=== PATIENT | female | born 1935 | race Caucasian/White ===

== ENCOUNTER 2018-07-09 05:53 | Emergency (ER) | payer OTHER ==
[2018-07-09] MEDS ORDERED: NA CHLORIDE 0.9% 1,000 ML ONE (07:12)
[2018-07-09] MEDS ORDERED: PANTOPRAZOLE 40 MG INJ ONE (07:12)
[2018-07-09 07:14] LABS: Absolute Lymphocytes (CBC) 1.3 K/uL (0.7-4.9); Absolute Monocytes 0.4 K/uL (0.1-1.3); Absolute Neutrophil 3.1 K/uL (1.8-8.0); Basophils % 0.7 % (0-1.3); Eosinophils % 2.4 % (0-4.4); Hematocrit 35.6 % (36.0-45.0); Lymphocytes % 26.4 % (15.3-44.8); MCH 26.8 pg (27.0-35.0); MCV 81.8 fL (80-100); MPV 8.4 fL (7.6-11.3); Monocytes % 8.2 % (3.3-12.3); RBC Red Blood Cell Count 4.35 M/uL (3.86-4.86)
[2018-07-09 07:15] LABS: Protime INR 1.08
[2018-07-09 07:49] LABS: ALT/SGPT 16 U/L (12-78); AST/SGOT 18 U/L (15-37); Albumin 3.3 g/dL (3.4-5.0); Alkaline Phosphatase 106 U/L (45-117); BUN Blood Urea Nitrogen 13 mg/dL (7-18); Bicarbonate 26 mmol/L (21-32); Bilirubin Direct 0.1 mg/dL (0-0.2); Bilirubin Total 0.3 mg/dL (0.2-1.0); Ferritin 33.6 ng/mL (8-388); Folic Acid, (Folate) 5.9 ng/mL (3.1-17.5); Glucose Level 92 mg/dL (74-106); Lipase 87 U/L (73-393); Magnesium 2.1 mg/dL (1.8-2.4); NT PRO-BNP 386 pg/mL (<450); Potassium 3.8 mmol/L (3.5-5.1); Protein, Total 7.7 g/dL (6.4-8.2); Sodium Level 140 mmol/L (136-145); Thyroid Stimulating Hormone 0.079 uIU/mL (0.360-3.740); Transferrin 264 mg/dL (200-360); Troponin (Emerg Dept Use Only) < 0.02 ng/mL (0.0-0.045)
--- NOTE | 2018-07-09 08:21 | RAD REPORT ---
EXAM DESCRIPTION: Lilly Single View07/09/2018 7:11 am CLINICAL HISTORY: Cough COMPARISON: 2016 FINDINGS: The lungs appear clear of acute infiltrate. The heart is normal size. A small hiatal brittni ia IMPRESSION: No acute abnormalities displayed
--- NOTE | 2018-07-09 09:13 | RAD REPORT ---
EXAM DESCRIPTION: USCarotid Artery Wnjqcujsp50/21/2018 7:37 am CLINICAL HISTORY: Syncope COMPARISON: None FINDINGS: The velocity of the right internal carotid artery equals 115 cm/sec. The right ICA/CCA rat io 1.1 The velocity of the left internal carotid artery equals 87 cm/sec. The left ICA/CCA ratio 0.8 Mild plaque is present within the carotid arteries. The vertebral arteries demonstrate antegrade flow IMPRESSION: Mild plaque within the carotid arteries without evidence of a hemodynamically significan t stenosis NASCET criteria used. Mild 0-49% stenosis Moderate 50-69% stenosis Severe 70-99% stenosis
--- NOTE | 2018-07-09 10:12 | EDPHYS ---
Physician Documentation [facility] Name: Agustina Laird Age: 82 yrs Sex: Female : 1935 Arrival Date: 07/09/2018 Time: 05:58 Bed 5 Private MD: Carlyle Walter T ED Physician Georgi Carrasco HPI: 07/09 06:50 This 82 yrs old Female presents to ER via Wheelchair with complaints of terry Weakness. 06:50 The patient presents to the emergency department with weakness of the entire body, terry generalized weakness. Onset: The symptoms/episode began/occurred 2 week(s) ago. Historical: - Allergies: 06:25 Dilaudid (Hives); fc 06:25 Lovastatin (Unknown reaction); fc - Home Meds: 06:25 citalopram 10 mg tab 1 tab once daily [Active]; pantoprazole 40 mg oral TbEC 1 tab once fc daily [Active]; allopurinol 100 mg Oral tab 1 tab 2 times per day [Active]; Lasix 40 mg Oral tab 1 tab once daily [Active]; diazepam 5 mg Oral tab 1 tab daily [Active]; levothyroxine 112 mcg tab 1 tab once daily [Active]; gabapentin 300 mg oral cap 1 cap daily [Active]; - PMHx: 06:25 Arthritis; CAD; Hypertension; Hypothyroidism; GERD; Depression; Gout; fc - PSHx: 06:25 Heart stents; fc - Immunization history:: Last tetanus immunization: unknown, Flu vaccine is up to date. - Social history:: Smoking status: Patient/guardian denies using tobacco, Patient/guardian denies using alcohol. - Ebola Screening: : Patient negative for fever greater than or equal to 101.5 degrees Fahrenheit, and additional compatible Ebola Virus Disease symptoms Patient denies exposure to infectious person Patient denies travel to an Ebola-affected area in the 21 days before illness onset. ROS: 06:52 Constitutional: Negative for fever, chills, and weight loss, Eyes: Negative for injury, terry pain, redness, and discharge, ENT: Negative for injury, pain, and discharge, Neck: Negative for injury, pain, and swelling, Cardiovascular: Negative for chest pain, palpitations, and edema, Respiratory: Negative for shortness of breath, cough, wheezing, and pleuritic chest pain, Abdomen/GI: Negative for abdominal pain, nausea, vomiting, diarrhea, and constipation, Back: Negative for injury and pain, : Negative for injury, bleeding, discharge, and swelling, MS/Extremity: Negative for injury and deformity, Psych: Negative for depression, anxiety, suicide ideation, homicidal ideation, and hallucinations, Allergy/Immunology: Negative for hives, rash, and allergies, Endocrine: Negative for neck swelling, polydipsia, polyuria, polyphagia, and marked weight changes. 06:52 Skin: Positive for pallor. 06:52 Neuro: Positive for dizziness, weakness. Exam: 06:52 Constitutional: This is a well developed, well nourished patient who is awake, alert, terry and in no acute distress. Head/Face: Normocephalic, atraumatic. ENT: Nares patent. No nasal discharge, no septal abnormalities noted. Tympanic membranes are normal and external auditory canals are clear. Oropharynx with no redness, swelling, or masses, exudates, or evidence of obstruction, uvula midline. Mucous membranes moist. Neck: Trachea midline, no thyromegaly or masses palpated, and no cervical lymphadenopathy. Supple, full range of motion without nuchal rigidity, or vertebral point tenderness. No Meningismus. Chest/axilla: Normal chest wall appearance and motion. Nontender with no deformity. No lesions are appreciated. Respiratory: Lungs have equal breath sounds bilaterally, clear to auscultation and percussion. No rales, rhonchi or wheezes noted. No increased work of breathing, no retractions or nasal flaring. Abdomen/GI: Soft, non-tender, with normal bowel sounds. No distension or tympany. No guarding or rebound. No evidence of tenderness throughout. Back: No spinal tenderness. No costovertebral tenderness. Full range of motion. Female : Normal external genitalia. MS/ Extremity: Pulses equal, no cyanosis. Neurovascular intact. Full, normal range of motion. Neuro: Awake and alert, GCS 15, oriented to person, place, time, and situation. Cranial nerves II-XII grossly intact. Motor strength 5/5 in all extremities. Sensory grossly intact. Cerebellar exam normal. Normal gait. Psych: Awake, alert, with orientation to person, place and time. Behavior, mood, and affect are within normal limits. 06:52 Eyes: Pupils: no acute changes, equal, round, and reactive to light and accomodation, Extraocular movements: intact throughout, Conjunctiva: normal, no acute changes, pale, Corneas: are normal, no acute changes, Sclera: no appreciated abnormality, no acute changes, Anterior chamber: normal, no acute changes, Lids and lashes: appear normal, no acute changes, Visual contreras: are intact, no acute changes. Vital Signs: 06:05 BP 153 / 76; Pulse 55; Resp 16; Temp 97.8(O); Pulse Ox 96% on R/A; Weight 78.02 kg (R); fc Height 5 ft. 5 in. (165.10 cm) (R); Pain 0/10; 07:31 BP 167 / 55; Pulse 49; Resp 14; Pulse Ox 96% on R/A; Pain 0/10; ss 09:16 BP 189 / 62; Pulse 47; Resp 17; Pulse Ox 98% on R/A; hb 10:10 BP 193 / 56 Supine; Pulse 47; gm 10:10 BP 185 / 67 Sitting; Pulse 48; gm 10:10 BP 176 / 84 Standing; Pulse 55; gm 06:05 Body Mass Index 28.62 (78.02 kg, 165.10 cm) fc MDM: 06:27 Patient medically screened. [facility] 06:54 Data reviewed: vital signs, nurses notes, lab test result(s), EKG, radiologic studies. [facility] 07/09 06:43 Order name: Basic Metabolic Panel; Complete Time: 07:55 [facility] 07/09 06:43 Order name: CBC with Diff; Complete Time: 07:48 [facility] 07/09 06:43 Order name: LFT's; Complete Time: 07:55 [facility] 07/09 06:43 Order name: Magnesium; Complete Time: 07:55 [facility] 07/09 06:43 Order name: NT PRO-BNP; Complete Time: 07:55 [facility] 07/09 06:43 Order name: PT-INR; Complete Time: 07:48 [facility] 07/09 06:43 Order name: Troponin (emerg Dept Use Only); Complete Time: 07:55 [facility] 07/09 06:43 Order name: Lipase; Complete Time: 07:55 [facility] 07/09 06:43 Order name: Type And Screen 07/09 06:43 Order name: Urine Culture [facility] 07/09 06:43 Order name: Retic Count; Complete Time: 07:48 [facility] 07/09 06:43 Order name: B12; Complete Time: 07:55 [facility] 07/09 06:43 Order name: Folic Acid,Serum (folate); Complete Time: 07:55 [facility] 07/09 06:43 Order name: TIBC; Complete Time: 07:55 [facility] 07/09 06:43 Order name: XRAY Chest (1 view); Complete Time: 08:51 [facility] 07/09 06:43 Order name: EKG; Complete Time: 06:46 [facility] 07/09 06:43 Order name: Cardiac monitoring; Complete Time: 06:53 [facility] 07/09 06:43 Order name: EKG - Nurse/Tech; Complete Time: 06:53 [facility] 07/09 06:43 Order name: IV Saline Lock; Complete Time: 06:53 [facility] 07/09 06:43 Order name: Labs collected and sent; Complete Time: 06:53 [facility] 07/09 06:43 Order name: Ferritin; Complete Time: 07:55 [facility] 07/09 06:43 Order name: TSH; Complete Time: 07:55 [facility] 07/09 06:50 Order name: Echo w/ Doppler [facility] 07/09 07:02 Order name: Occult Blood--Ancillary 07/09 07:05 Order name: US Carotid Artery Bilateral; Complete Time: 09:29 [facility] 07/09 07:09 Order name: Bb Add On 07/09 10:19 Order name: Urine Dipstick--Ancillary (enter results) 07/09 06:43 Order name: O2 Per Protocol; Complete Time: 06:52 [facility] 07/09 06:43 Order name: O2 Sat Monitoring; Complete Time: 06:52 [facility] 07/09 06:50 Order name: IV Saline Lock - Large Bore; Complete Time: 06:52 [facility] 07/09 09:32 Order name: Orthostatics; Complete Time: 10:11 [facility] Administered Medications: 07:12 Drug: NS 0.9% 1000 ml Route: IV; Rate: 125 ml/hr; Site: right forearm; la1 07:12 Drug: ProTONIX 40 mg Route: IVP; Site: right forearm; la1 Point of Care Testing: Guaiac: 07:01 Stool Guaiac: Negative; Stool Hemoccult Control: Pass; [facility] Disposition: 07/09/18 10:11 Discharged to Home. Impression: Nonrheumatic aortic (valve) stenosis, Bradycardia, unspecified, Anemia, unspecified, Malaise and fatigue. - Condition is Fair. - Discharge Instructions: Anemia, Nonspecific, Bradycardia, Adult, Weakness, Aortic Valve Stenosis, Weakness, [id number]. - Medication Reconciliation Form, Thank You Letter, Antibiotic Education, Prescription Opioid Use form. - Follow up: Carlyle Walter; When: 2 - 3 days; Reason: Recheck today's complaints, Continuance of care, Re-evaluation by your physician. Follow up: Zenon Diaz; When: 1 - 2 days; Reason: Recheck today's complaints, Continuance of care, Re-evaluation by your physician. - Problem is new. - Symptoms have improved. Signatures: Dispatcher [employer] [facility] Georgi Carrasco MD MD cha Chretien, Felicia, RN RN Onel Muñoz RN RN la1 Elizabeth Prabhakar RN RN hb Corrections: (The following items were deleted from the chart) 06:47 06:46 FERRITIN+C.LAB.BRZ ordered. [facility] 10:50 10:11 07/09/2018 10:11 Discharged to Home. Impression: Nonrheumatic aortic (valve) hb stenosis; Bradycardia, unspecified; Anemia, unspecified; Malaise and fatigue. Condition is Fair. Discharge Instructions: Anemia, Nonspecific, Bradycardia, Adult, Weakness, Aortic Valve Stenosis, Weakness, [id number]. Forms are Medication Reconciliation Form, Thank You Letter, Antibiotic Education, Prescription Opioid Use. Follow up: Carlyle Walter; When: 2 - 3 days; Reason: Recheck today's complaints, Continuance of care, Re-evaluation by your physician. Follow up: Zenon Diaz; When: 1 - 2 days; Reason: Recheck today's complaints, Continuance of care, Re-evaluation by your physician. Problem is new. Symptoms have improved. terry
--- NOTE | 2018-07-09 10:12 | ER ---
Nurse's Notes [facility] Name: Agustina Laird Age: 82 yrs Sex: Female : 1935 Arrival Date: 07/09/2018 Time: 05:58 Bed 5 Private MD: Carlyle Walter T Diagnosis: Nonrheumatic aortic (valve) stenosis;Bradycardia, unspecified;Anemia, unspecified;Malaise and fatigue Presentation: 07/09 06:05 Presenting complaint: Patient states: that she has been having weakness for approx 2 fc months. Is concerned that she may need blood, hx of anemia. States that she is just tired and has no energy. Denies any pain. Transition of care: patient was not received from another setting of care. No acute neurological deficit is noted. Pre-hospital glucose is not applicable to this patient. Onset of symptoms was April 2018. Risk Assessment: Do you want to hurt yourself or someone else? Patient reports no desire to harm self or others. Initial Sepsis Screen: Does the patient meet any 2 criteria? No. Patient's initial sepsis screen is negative. Does the patient have a suspected source of infection? No. Patient's initial sepsis screen is negative. Care prior to arrival: None. 06:05 Method Of Arrival: Wheelchair fc 06:05 Acuity: CAITY 3 fc Stroke Activation: Physician: Stroke Attending; Name: ; Notified At: ; Arrived At: Physician: Chief Stroke Resident; Name: ; Notified At: ; Arrived At: Physician: Stroke Resident; Name: ; Notified At: ; Arrived At: Physician: ED Attending; Name: ; Notified At: ; Arrived At: Physician: ED Resident; Name: ; Notified At: ; Arrived At: 06:05 Pt is having weakness all over x 2 months fc Historical: - Allergies: 06:25 Dilaudid (Hives); fc 06:25 Lovastatin (Unknown reaction); fc - Home Meds: 06:25 citalopram 10 mg tab 1 tab once daily [Active]; pantoprazole 40 mg oral TbEC 1 tab once fc daily [Active]; allopurinol 100 mg Oral tab 1 tab 2 times per day [Active]; Lasix 40 mg Oral tab 1 tab once daily [Active]; diazepam 5 mg Oral tab 1 tab daily [Active]; levothyroxine 112 mcg tab 1 tab once daily [Active]; gabapentin 300 mg oral cap 1 cap daily [Active]; - PMHx: 06:25 Arthritis; CAD; Hypertension; Hypothyroidism; GERD; Depression; Gout; fc - PSHx: 06:25 Heart stents; fc - Immunization history:: Last tetanus immunization: unknown, Flu vaccine is up to date. - Social history:: Smoking status: Patient/guardian denies using tobacco, Patient/guardian denies using alcohol. - Ebola Screening: : Patient negative for fever greater than or equal to 101.5 degrees Fahrenheit, and additional compatible Ebola Virus Disease symptoms Patient denies exposure to infectious person Patient denies travel to an Ebola-affected area in the 21 days before illness onset. Screenin:05 Abuse screen: Denies threats or abuse. Nutritional screening: No deficits noted. fc Tuberculosis screening: No symptoms or risk factors identified. Fall Risk None identified. Assessment: 06:29 General: Appears in no apparent distress. uncomfortable, Behavior is calm, cooperative, jd3 appropriate for age, Reports fatigue for blood count might be low. Pain: Denies pain. Neuro: Level of Consciousness is awake, alert, obeys commands, Oriented to person, place, time, situation, Appropriate for age Reports weakness. Cardiovascular: Heart tones S1 S2 present Capillary refill < 3 seconds Patient's skin is warm and dry. Respiratory: Airway is patent Respiratory effort is even, unlabored, Respiratory pattern is regular, symmetrical, Breath sounds are clear bilaterally. GI: Abdomen is round non-distended, Patient currently denies abdominal pain, diarrhea, nausea, vomiting. : No signs and/or symptoms were reported regarding the genitourinary system. EENT: No signs and/or symptoms were reported regarding the EENT system. Derm: Skin is intact, Skin is dry, Skin is normal, Skin temperature is warm. Musculoskeletal: Circulation, motion, and sensation intact. Range of motion: intact in all extremities. 07:15 Reassessment: Patient appears in no apparent distress at this time. Patient and/or hb family updated on plan of care and expected duration. Pain level reassessed. Patient is alert, oriented x 3, equal unlabored respirations, skin warm/dry/pink. 08:02 Reassessment: Patient appears in no apparent distress at this time. Patient and/or hb family updated on plan of care and expected duration. Pain level reassessed. Patient is alert, oriented x 3, equal unlabored respirations, skin warm/dry/pink. 08:09 Reassessment: Pt to echo via wheelchair. Family remains at bedside. hb 09:09 Reassessment: Pt returned from echo via wheelchair. Assisted back to bed, NAD. Denies hb pain/sob at this time. Bed locked in low position, call light within reach. Family remains at bedside. 10:00 Reassessment: Patient appears in no apparent distress at this time. No changes from hb previously documented assessment. Patient and/or family updated on plan of care and expected duration. Pain level reassessed. Patient is alert, oriented x 3, equal unlabored respirations, skin warm/dry/pink. Vital Signs: 06:05 BP 153 / 76; Pulse 55; Resp 16; Temp 97.8(O); Pulse Ox 96% on R/A; Weight 78.02 kg (R); fc Height 5 ft. 5 in. (165.10 cm) (R); Pain 0/10; 07:31 BP 167 / 55; Pulse 49; Resp 14; Pulse Ox 96% on R/A; Pain 0/10; ss 09:16 BP 189 / 62; Pulse 47; Resp 17; Pulse Ox 98% on R/A; hb 10:10 BP 193 / 56 Supine; Pulse 47; gm 10:10 BP 185 / 67 Sitting; Pulse 48; gm 10:10 BP 176 / 84 Standing; Pulse 55; gm 06:05 Body Mass Index 28.62 (78.02 kg, 165.10 cm) ED Course: 05:58 Patient arrived in ED. es 05:58 Carlyle Walter MD is Private Physician. es 06:05 Arm band placed on Patient placed in an exam room, on a stretcher. fc 06:05 Patient has correct armband on for positive identification. Placed in gown. Bed in low fc position. Call light in reach. Side rails up X 1. manager monitoring on. Pulse ox on. NIBP on. 06:05 No provider procedures requiring assistance completed. fc 06:20 Triage completed. fc 06:26 Georgi Carrasco MD is Attending Physician. [facility] 06:28 Jose Francisco Pride RN is Primary Nurse. jd3 06:30 Inserted saline lock: 22 gauge in right forearm, using aseptic technique. Blood jd3 collected. 07:07 X-ray completed. Portable x-ray completed in exam room. Patient tolerated procedure jb2 well. 07:08 XRAY Chest (1 view) In Process Unspecified. EDMS 07:36 Ultrasound completed. Patient tolerated well. aa4 07:37 US Carotid Artery Bilateral In Process Unspecified. EDMS 10:11 Carlyle Walter MD is Referral Physician. terry 10:11 Zenon Diaz MD is Referral Physician. terry 10:49 IV discontinued, intact, bleeding controlled, No redness/swelling at site. Pressure hb dressing applied. Administered Medications: 07:12 Drug: NS 0.9% 1000 ml Route: IV; Rate: 125 ml/hr; Site: right forearm; la1 07:12 Drug: ProTONIX 40 mg Route: IVP; Site: right forearm; la1 Point of Care Testing: Guaiac: 07:01 Stool Guaiac: Negative; Stool Hemoccult Control: Pass; terry Outcome: 10:11 Discharge ordered by MD. terry 10:49 Discharged to home ambulatory. hb 10:49 Condition: stable 10:49 Discharge instructions given to patient, Instructed on discharge instructions, follow up and referral plans. Demonstrated understanding of instructions, follow-up care. 10:50 Patient left the ED. hb Addendum: 07/14/2018 09:21 Addendum: Culture Results: Positive urine culture. FAXED culture report to pt's PCP's s s office (Dr. Walter). Signatures: Dispatcher [employer] EDGeorgi Johnson MD MD cha Salyer, Edna es Buechter, Jesse jb2 Alaina Kat RN RN fc Frazier, Amanda aa4 Emilee Amin RN RN Onel Muñzo RN RN la1 Elizabeth Prabhakar RN RN Jose Francisco Pride RN RN jd3 Moya, Gabriella gm Corrections: (The following items were deleted from the chart) 07/09 06:32 06:29 General: Appears in no apparent distress. uncomfortable, Behavior is calm, jd3 cooperative, appropriate for age, Reports fatigue for jd3
--- NOTE | 2018-07-09 10:29 | EKG ---
Test Date: 2018-07-09 Test Time: 06:20:03 Lodge Officer: MIHAI MEASUREMENT RESULTS: Intervals: Rate: 49 SD: 202 QRSD: 94 QT: 470 QTc: 424 [place]: P: 36 SD: 202 QRS: 21 T: 147 INTERPRETIVE STATEMENTS: Marked sinus bradycardia Nonspecific ST and T wave abnormality Abnormal ECG Compared to ECG 03/26/2016 06:22:16 No significant changes Electronically Signed On 07-09-18 10:28:28 TANK TRUCK MILK RECEIVER by Zenon Diaz
[2018-07-09 11:00] LABS: Urine Blood NEGATIVE (NEG); Urine Glucose NEGATIVE (NEG); Urine Protein NEGATIVE (NEG); Urine Specific Gravity 1.015 (1.005-1.030)
[2018-07-09 11:01] VITALS: TEMP 97.8
[2018-07-09 11:04] VITALS: O2SAT 98
[2018-07-09 11:05] VITALS: BP 176/84
--- NOTE | 2018-07-09 12:56 | ECHO ---
HEIGHT: 5 ft 5 in WEIGHT: 172 lb 0 oz DATE OF STUDY: 07/09/[address]: Georgi Carrasco MD 2-DIMENSIONAL: YES M.MODE: YES DOPPLER: YES COLOR FLOW: YES TDS: YES PORTABLE: NO DEFINITY: NO BUBBLE STUDY: NO DIAGNOSIS: SHORTNESS OF BREATH, MURMUR CARDIAC HISTORY: CATHERIZATION: NO SURGERY: NO PROSTHETIC VALVE: NO PACEMAKER: NO MEASUREMENTS (cm) DIASTOLIC (NORMALS) SYSTOLIC (NORMALS) IVSd 1.4 (0.6-1.2) LA Diam (1.9-4.0) LVEF 64% LVIDd 4.1 (3.5-5.7) LVIDs 2.7 (2.0-3.5) %FS 35% LVPWd 1.2 (0.6-1.2) Ao Diam 2.5 (2.0-3.7) 2 DIMENSIONAL ASSESSMENT: RIGHT ATRIUM: NORMAL LEFT ATRIUM: DILATED RIGHT VENTRICLE: NORMAL LEFT VENTRICLE: LEFT VENTRICULAR HYPERTROPHY TRICUSPID VALVE: NOMRAL MITRAL VALVE: MITRAL ANNULAR CALCIFICATION PULMONIC VALVE: NORMAL AORTIC VALVE: STENOSIS PERICARDIAL EFFUSION: NONE AORTIC ROOT: NORMAL LEFT VENTRICULAR WALL MOTION: NORMAL. DOPPLER/COLOR FLOW: SEVERE AORTIC STENOSIS. PEAK/MEAN GRADIENT 60/25mmHg. ESTIMATED AROTIC VALVE AREA 0.8 CENTIMETERS SQUARED. MILD AORTIC, MITRAL AND TRICUSPID REGURGITATION. COMMENTS: NORAML LEFT VENTRICULAR EJECTION FRACTION. LEFT VENTRICULAR HYPERTROPHY. MITRAL ANNULAR CALCIFICATION. MILD AORTIC, MITRAL AND TRICUSPID REGURGITATION.. SEVERE AORTIC STENOSIS. TECHNOLOGIST: GETACHEW STOVER
== END 2018-07-09 10:50 | disposition home or self-care (01) ==
LOC: ER 05:53
DX: I35.0 Nonrheumatic aortic (valve) stenosis (principal); R00.1 Bradycardia, unspecified; D64.9 Anemia, unspecified; R53.81 Other malaise; R53.83 Other fatigue; I10 Essential (primary) hypertension; E03.9 Hypothyroidism, unspecified; F32.9 Major depressive disorder, single episode, unspecified; Z88.8 Allergy status to other drugs, medicaments and biological substances; Z95.818 Presence of other cardiac implants and grafts
CPT/HCPCS: 36415; 71045; 80048; 80076; 81003; 82272; 82607; 82728; 82746; 83540; 83690; 83735; 83880; 84443; 84466; 84484; 85025; 85044; 85610; 86850; 86900; 86901; 86922 ×2; 87077; 87086; 87088; 87186; 93005; 93306; 93880; 96374; 99284; C9113; J7030

== ENCOUNTER 2018-07-17 07:14 | Day surgery (SDC) | payer OTHER ==
[2018-07-17] MEDS ORDERED: NA CHLORIDE 0.9% 500 ML ONE ×2 (08:11→09:00)
[2018-07-17] MEDS ORDERED: MIDAZOLAM HCL 2 MG/2 ML INJ ONE ×2 (09:09→09:21)
[2018-07-17] MEDS ORDERED: FENTANYL CITR 100 MCG/2 ML ONE (09:09)
[2018-07-17] MEDS ORDERED: NA CHLORIDE 0.9% 100 ML IV ONE (09:10)
[2018-07-17] MEDS ORDERED: NA CHLORIDE 0.9% 0 ML ONE (09:10)
[2018-07-17] MEDS ORDERED: ATROPINE SULF 1 MG/10 ML SYR IV ONE (09:10)
[2018-07-17 11:43] VITALS: BP 145/62; TEMP 97.5; O2SAT 99
--- NOTE | 2018-07-21 17:52 | OP ---
Date of Procedure: 07/17/2018 Surgeon: Raheem Camargo MD Heater [place]: Yusuf Colon. Procedure: Left heart catheterization and right heart catheterization with cardiac output. Measurements: O2 saturation measurement. Indication: Aortic stenosis and coronary artery disease. The patient was brought to the label maker as an outpatient. Prepped and draped in the routine sterile fashion. Given 4 mg of Versed for IV sanjeev tion. A 7-Maltese sheath introduced in the right common femoral vein and a 6-Maltese sheath was introd uced in the common femoral artery. [place]Queen[place] catheter was advanced pulmonary artery along the way of the right atrium, right ventricle, pulmonary artery and wedge, all of this wer e normal. O2 saturation measurements were obtained in the right atrium, inferior vena cava, right ve ntricle, pulmonary artery, and wedge, all of which were normal. She had a cardiac output of 5 L/nithya te. [place]Queenie catheter was removed. Left heart catheterization was done using Keith catheters 6-F rench left and right. She was found to have patent stents in the RCA and patent stent in the LAD. L V-gram was done. The lesion was crossed easily. She only had about a 20 mm gradient across the aort ic valve. There were no complications. Blood loss was 5 cc. Final Diagnoses: Mild aortic stenosis, coronary artery disease with patent stent. Plan: Plan is to continue medical therapy. Total Conscious Sedation: 45 minutes. WARREN/MANJULA Voice ID: [id number] Report ID: [id number]
== END 2018-07-17 12:00 | disposition home health service (06) ==
LOC: CCL 07:14
DX: I35.0 Nonrheumatic aortic (valve) stenosis (principal); I25.10 Atherosclerotic heart disease of native coronary artery without angina pectoris; I49.5 Sick sinus syndrome; I10 Essential (primary) hypertension; E78.6 Lipoprotein deficiency; K21.9 Gastro-esophageal reflux disease without esophagitis; Z95.5 Presence of coronary angioplasty implant and graft; Z88.6 Allergy status to analgesic agent
CPT/HCPCS: 93460; C1760; C1893; J2250 ×2; J3010; J0583

== ENCOUNTER 2021-08-28 07:30 | Day surgery (SDC) | payer OTHER ==
[2021-08-25 11:21] LABS: Protime INR 1.03
[2021-08-25 11:24] LABS: Absolute Lymphocytes (CBC) 2.1 K/uL (0.7-4.9); Hematocrit 33.9 % (36.0-45.0); Lymphocytes % 33.5 % (15.3-44.8); MPV 8.2 fL (7.6-11.3); Potassium 3.7 mmol/L (3.5-5.1); RBC Red Blood Cell Count 4.29 M/uL (3.86-4.86)
--- NOTE | 2021-08-25 11:59 | RAD REPORT ---
EXAM DESCRIPTION: RAD - Chest Pa And Lat (2 Views) - 08/25/2021 10:39 am CLINICAL HISTORY: Pre op pending heart cath COMPARISON: Portable open 09/07/2017, CT chest 2016 TECHNIQUE: Frontal and lateral views of the chest were obtained. FINDINGS: The lungs are clear of an acute infiltrate. Fibrotic lung pattern matches comparison. No a cute failure or volume overload. Diaphragmatic eventration is present. Posterior gutter costophrenic angle blunting on the lateral view is believed to be chronic pleural disease and not pleural effusion . Hiatal hernia is seen retrocardiac midline. Of Heart size is normal and central vasculature is wit hin normal limits. No pneumothorax or measurable pleural effusion. No acute bony finding noted. No aortic abnormality. IMPRESSION: Fibrotic lung pattern similar to comparison. No acute finding.
--- NOTE | 2021-08-26 13:49 | EKG ---
Test Date: 2021-08-25 Test Time: 10:45:54 Seed Corn Manager Production: EVELINE MEASUREMENT RESULTS: Intervals: Rate: 58 GA: 174 QRSD: 88 QT: 440 QTc: 431 Christine: P: 50 GA: 174 QRS: 30 T: 146 INTERPRETIVE STATEMENTS: Sinus bradycardia ST & T wave abnormality, consider lateral ischemia Abnormal ECG Compared to ECG 07/09/2018 06:20:03 Possible ischemia now present ST (T wave) deviation still present Electronically Signed On 08-26-21 13:47:38 HAND CLOTH EXAMINER by Raheem Camargo
[2021-08-28] MEDS ORDERED: NA CHLORIDE 0.9% 500 ML ONE (07:42)
[2021-08-28] MEDS ORDERED: MIDAZOLAM HCL 2 MG/2 ML INJ ONE ×2 (07:55→08:38)
[2021-08-28] MEDS ORDERED: FENTANYL CITR 100 MCG/2 ML ONE (07:56)
[2021-08-28] MEDS ORDERED: ATROPINE SULF 1 MG/10 ML SYR IV ONE (07:56)
[2021-08-28] MEDS ORDERED: NA CHLORIDE 0.9% 0 ML ONE (07:57)
[2021-08-28] MEDS ORDERED: HEPA 1000U/500MLS 1,000 UNIT/500 ML BAG IV ONE (08:11)
[2021-08-28] MEDS ORDERED: LIDOCAINE 1% 20 ML MDV ONE (08:26)
[2021-08-28] MEDS ORDERED: NA CHLORIDE 0.9% 100 ML IV ONE (08:31)
--- NOTE | 2021-08-28 09:38 | OP ---
Surgeon: Raheem Camargo MD Equipment Planner: Liz Jones. Procedures: Left and right heart catheterization, selective coronary arteriogram, O2 saturation fabio urement, cardiac output measurement. Indication: Critical aortic stenosis. Ms. Laird is an 86-year-old. She has known CAD, status post RCA stent couple of years ago. Has had aortic stenosis, very severe, scheduled for left and right he art catheterization today. Procedure In Detail: Came to the car barn lab[facility] as an outpatient, prepped and draped in the routine steril e fashion, given Versed for sedation and fentanyl. A 6-[place]or[place] sheath introduced in the left common f emoral artery. A 7-[place] in the right common femoral vein that was using the Seldinger technique an d 10 cc of Xylocaine. heart catheterization was done first. Keith catheter left and ri ght were used to cannulate the left main and right main respectively. Her left main was normal. Cir cumflex and LAD were normal. She had an ostial stent in the RCA that was patent without any signific ant restenosis. Distally was normal. She was a right-dominant. Following that, a [place] cathete r was introduced in the right common femoral vein sheath. Right atrial pressure, right ventricular p ressure, PA pressure, wedge pressure were obtained and were within normal limits. Cardiac output livan surement was done in the PA and it measured 5.39 L/minute on the average. O2 saturations were drawn. The PA, RV, RA, IVC and femoral artery saturation were pending. Wedge was 16. There were no compl ications. Blood Loss: 5 mL. Postoperative Diagnoses: 1.Coronary artery disease, status post RCA stent. 2.No restenosis. 3.Severe aortic stenosis. Normal right atrial, right ventricular and PA pressure. O2 saturation pe nding. Cardiac output 5.39 L/minute. Plan: TAVR in the near future. Anesthesia: Total conscious sedation was 60 minutes. The patient had a [employer] to close the groin site insertion. She will remain in the hospital for 2 hours of bedrest and she will go home and I will make arrangements for TAVR as an outpatient. WARREN/MANJULA Voice ID: [id number] Report ID: [id number]
[2021-08-28 10:05] VITALS: TEMP 97.4
[2021-08-28 11:14] VITALS: BP 116/52; O2SAT 97
== END 2021-08-28 11:00 | disposition home or self-care (01) ==
LOC: CCL 07:30
DX: I35.0 Nonrheumatic aortic (valve) stenosis (principal); I25.10 Atherosclerotic heart disease of native coronary artery without angina pectoris; I65.23 Occlusion and stenosis of bilateral carotid arteries; E78.2 Mixed hyperlipidemia; I49.5 Sick sinus syndrome; I10 Essential (primary) hypertension; G62.9 Polyneuropathy, unspecified; K21.9 Gastro-esophageal reflux disease without esophagitis; E03.9 Hypothyroidism, unspecified; M10.9 Gout, unspecified; Z95.5 Presence of coronary angioplasty implant and graft; Z88.6 Allergy status to analgesic agent; Z88.8 Allergy status to other drugs, medicaments and biological substances; Z20.822 Contact with and (suspected) exposure to COVID-19
CPT/HCPCS: 93005; 85025; 80048; 36415; 85610; 85730; 71046; 93456; U0003; C1893; J2250 ×2; J7040; J3010; J1644; J0583

== ENCOUNTER 2022-04-26 11:01 | Emergency (ER) | payer OTHER ==
--- OUTSIDE RECORDS SUMMARY | 2022-04-26 11:05 | XMS REPORT | Continuity of Care Document ---
:[address] [facility] t Address [address] [place] [address] Care Team Providers Name Role Phone Chela Blackwell Attending Clinician Unavailable Marquez Bey Attending Clinician Unavailable Chela Blackwell Admitting Clinician Unavailable Carlyle Walter Admitting Clinician Unavailable Payers Payer Name Policy Type Policy Number Effective Date Expiration Date S ource Problems This patient has no known problems. Allergies, Adverse Reactions, Alerts Allergy Allergy Status Severity Reaction(s) Onset Inactive Treating Comm ents Source Name Type Date Date Clinician hydromor DA Active SV ITCHING 0 [facility] phone 2-24 Clear 00:00: Granado 00 [facility] Iodinate DA Active [place] HIVES [facility] d 1-24 Clear Contrast 00:00: Granado Media [facility] Medications This patient has no known medications. Procedures Procedure Date / Time Performed Performing Clinician Pablo franco [id number] 2021-10-17 00:00:00 CHAAB.01 [facility] [id number] 2021-10-17 00:00:00 CHAAB.01 [facility] [id number] 2021-10-17 00:00:00 CHAAB.01 [facility] Encounters Start End Encounter Admission Attending Care Care Encounter Source Date/Time Date/Time Type Type Clinicians Facility Department ID 2021-10-17 2021-10-19 Inpatient EL MIKE Blackwell INTE [id number] [facility] 05:22:00 12:47:00 Chayo 92 [facility] 2021-10-12 2021-10-12 Outpatient MIKE Grande [facility] [id number] [facility] 09:00:00 23:00:00 Chayo 67 [facility] 2021-09-11 2021-09-11 Outpatient MIKE Hernández [facility] [id number] [facility] 08:58:00 08:58:00 Marquez 12 [facility] Results Test Description Test Time Test Comments Results Result Comments Source BASIC METABOLIC PANEL 2021-10-19 04:12:00 Test Item Value Reference Range Interpretation Comme nts SODIUM (test code = NA) 145 mEq/L 134-147 N POTASSIUM (test code = K) 3.6 mEq/L 3.4-5.0 CHLORIDE (test code = CL) 110 mEq/L 100-108 H CARBON DIOXIDE (test code = CO2) 24 mEq/l 21-33 N ANION GAP (test code = GAP) 15 0-20 N GLUCOSE (test code = GLU) 126 mg/dL 70-110 H BLOOD UREA NITROGEN (test code = 15 mg/dL 7-18 BUN) GLOMERULAR FILTRATION RATE (test 59.2 70-80 L Units of measure = ml/min/1.73 code = GFR) m2 CREATININE (test code = CREAT) 0.9 mg/dL 0.6-1.3 N CALCIUM (test code = CA) 9.5 mg/dL 8.0-10.5 N [id number] 04:12:00 Test Item Value Reference Range Interpretation Comments PHOSPHOROUS (test code = PHOS) 2.9 MG/DL 2.5-4.9 N [id number] 04:12:00 Test Item Value Reference Range Interpretation Comments MAGNESIUM (test code = MAG) 2.19 mg/dL 1.80-2.40 N CALCIUM [id number] 04:12:00 Test Item Value Reference Range Interpretation Comments CALCIUM IONIZED (test code = DORA) 1.17 MMOL/L 1.12-1.32 N CBC W/AUTO [id number] 04:07:00 Test Item Value Reference Range Interpretation Comments WHITE BLOOD CELL (test code = 9.2 x10 3/uL 4.5-11.0 N WBC) RED BLOOD CELL (test code = 3.92 x10 6/uL 3.54-5.02 N RBC) HEMOGLOBIN (test code = HGB) 9.7 g/dL 11.0-15.0 L HEMATOCRIT (test code = HCT) 31.4 % 33.0-45.0 L MEAN CELL VOLUME (test code = 80.1 fL 81.0-99.0 L MCV) MEAN CELL HGB (test code = MCH) 24.7 pg 27.0-33.0 L MEAN CELL HGB CONCETRATION 30.9 g/dL 33.0-37.0 L (test code = MCHC) RED CELL DISTRIBUTION WIDTH CV 17.7 % 11.5-14.5 H (test code = RDW) RED CELL DISTRIBUTION WIDTH SD 51.0 fL 37.0-54.0 N (test code = RDW-SD) PLATELET COUNT (test code = 150 x10 3/uL 150-400 N PLT) MEAN PLATELET VOLUME (test code 10.4 fL 7.0-9.0 H = MPV) NEUTROPHIL % (test code = NT%) 70.9 % 56.0-77.0 N IMMATURE GRANULOCYTE % (test 0.5 % 0.0-2.0 N code = IG%) LYMPHOCYTE % (test code = LY%) 17.0 % 14.0-32.0 N MONOCYTE % (test code = MO%) 11.4 % 4.8-9.0 H EOSINOPHIL % (test code = EO%) 0.0 % 0.3-3.7 L BASOPHIL % (test code = BA%) 0.2 % 0.0-2.0 N NUCLEATED RBC % (test code = 0.0 % 0-0 N NRBC%) NEUTROPHIL # (test code = NT#) 6.49 x10 3/uL 2.0-7.6 N IMMATURE GRANULOCYTE # (test 0.05 x10 3/uL 0.00-0.03 H code = IG#) LYMPHOCYTE # (test code = LY#) 1.56 x10 3/uL 1.0-3.8 N MONOCYTE # (test code = MO#) 1.04 x10 3/uL 0.1-0.8 H EOSINOPHIL # (test code = EO#) 0.00 x10 3/uL 0.0-0.2 N BASOPHIL # (test code = BA#) 0.02 x10 3/uL 0.0-0.2 N NUCLEATED RBC # (test code = 0.00 x10 3/uL 0.0-0.1 N NRBC#) MANUAL DIFF REQUIRED (test code NO = MDIFF) BASIC METABOLIC [id number] 22:25:00 Test Item Value Reference Range Interpretation Comments SODIUM (test code = NA) 141 mEq/L 134-147 N POTASSIUM (test code = 5.2 mEq/L 3.4-5.0 H K) CHLORIDE (test code = 110 mEq/L 100-108 H CL) CARBON DIOXIDE (test 21 mEq/l 21-33 N code = CO2) ANION GAP (test code = 15 0-20 N GAP) GLUCOSE (test code = 122 mg/dL 70-110 H GLU) BLOOD UREA NITROGEN 11 mg/dL 7-18 (test code = BUN) GLOMERULAR FILTRATION 59.2 70-80 L Units of measure = RATE (test code = GFR) ml/mi n/1.73 m2 CREATININE (test code = 0.9 mg/dL 0.6-1.3 N CREAT) CALCIUM (test code = 8.5 mg/dL 8.0-10.5 N CA) [id number] 22:25:00 Test Item Value Reference Range Interpretation Comments MAGNESIUM (test code = MAG) 2.09 mg/dL 1.80-2.40 BASIC METABOLIC [id number] 17:39:00 Test Item Value Reference Range Interpretation Comments SODIUM (test code = NA) 143 mEq/L 134-147 N POTASSIUM (test code = 3.3 mEq/L 3.4-5.0 L K) CHLORIDE (test code = 108 mEq/L 100-108 N CL) CARBON DIOXIDE (test 23 mEq/l 21-33 N code = CO2) ANION GAP (test code = 15 0-20 N GAP) GLUCOSE (test code = 116 mg/dL 70-110 H GLU) BLOOD UREA NITROGEN 17 mg/dL 7-18 N (test code = BUN) GLOMERULAR FILTRATION 59.2 70-80 L Units of measure = RATE (test code = GFR) ml/mi n/1.73 m2 CREATININE (test code = 0.9 mg/dL 0.6-1.3 N CREAT) CALCIUM (test code = 8.9 mg/dL 8.0-10.5 N CA) [id number] 17:39:00 Test Item Value Reference Range Interpretation Comments PHOSPHOROUS (test code = PHOS) 2.5 MG/DL 2.5-4.9 N [id number] 17:39:00 Test Item Value Reference Range Interpretation Comments MAGNESIUM (test code = MAG) 1.81 mg/dL 1.80-2.40 N CALCIUM [id number] 17:39:00 Test Item Value Reference Range Interpretation Comments CALCIUM IONIZED (test code = DORA) 1.16 MMOL/L 1.12-1.32 N UA RFLX MICR CULT IF [id number] 15:38:00 Test Item Value Reference Range Interpretation Comments UA COLOR (test code = COLU) STRAW YEL/STRAW UA APPEARANCE (test code = APPU) CLEAR CLEAR UA GLUCOSE DIPSTICK (test code = NEGATIVE NEGATIVE DGLUU) UA BILIRUBIN DIPSTICK (test code NEGATIVE NEGATIVE = BILU) UA KETONE DIPSTICK (test code = NEGATIVE NEGATIVE KETU) UA SPECIFIC GRAVITY (test code = 1.015 1.005-1.030 N SGU) UA BLOOD DIPSTICK (test code = NEGATIVE NEGATIVE ED) UA PH DIPSTICK (test code = CRYSTAL) 5.0 5.0-7.0 N UA PROTEIN DIPSTICK (test code = NEGATIVE NEGATIVE PROU) UA UROBILINIOGEN DIPSTICK (test 0.2 mg/dL 0.2-1.0 code = URO) UA NITRITE DIPSTICK (test code = NEGATIVE NEGATIVE CANDACE) UA LEUKOCYTE ESTERASE DIPSTICK NEGATIVE NEGATIVE (test code = LEUU) UA WBC (test code = WBCU) 0-3 WBC/HPF 0-3 UA RBC (test code = RBCU) 0-3 RBC/HPF 0-3 UA WBC NO REFLEX (test code = 0-3 WBC/HPF 0-3 WBCUCL) UA BACTERIA (test code = BACU) TRACE /HPF NONE SEEN UA SQUAMOUS CELLS (test code = 0-5 /HPF NONE SEEN SQU) UA MUCUS (test code = MUCU) TRACE /LPF NONE SEEN Indication for culture: Dysuria/FrequencySpecimen Description: CLEAN CATCH COMPREHENSIVE METABOLIC [id number] 04:24:00 Test Item Value Reference Range Interpretation Comments SODIUM (test code = NA) 144 mEq/L 134-147 N POTASSIUM (test code = 3.9 mEq/L 3.4-5.0 N K) CHLORIDE (test code = 113 mEq/L 100-108 H CL) CARBON DIOXIDE (test 21 mEq/l 21-33 N code = CO2) ANION GAP (test code = 14 0-20 N GAP) GLUCOSE (test code = 102 mg/dL 70-110 N GLU) BLOOD UREA NITROGEN 20 mg/dL 7-18 H (test code = BUN) GLOMERULAR FILTRATION 59.2 70-80 L Units of measure = RATE (test code = GFR) ml/mi n/1.73 m2 CREATININE (test code = 0.9 mg/dL 0.6-1.3 N CREAT) TOTAL PROTEIN (test 5.9 g/dL 6.4-8.2 L code = PROT) ALBUMIN (test code = 2.90 g/dL 3.4-5.0 L ALB) CALCIUM (test code = 8.2 mg/dL 8.0-10.5 N CA) BILIRUBIN TOTAL (test 0.30 mg/dL 0.0-1.0 N code = BILT) SGOT/AST (test code = 30 IUnit/L 15-37 N AST) SGPT/ALT (test code = 9 IUnit/L 30-65 L ALT) ALKALINE PHOSPHATASE 71 IUnit/L 20-125 N TOTAL (test code = ALKP) [id number] 04:24:00 Test Item Value Reference Range Interpretation Comments MAGNESIUM (test code = MAG) 1.70 mg/dL 1.80-2.40 L CBC W/AUTO [id number] 04:07:00 Test Item Value Reference Range Interpretation Comments WHITE BLOOD CELL (test code = 7.5 x10 3/uL 4.5-11.0 WBC) RED BLOOD CELL (test code = 3.14 x10 6/uL 3.54-5.02 L RBC) HEMOGLOBIN (test code = HGB) 8.0 g/dL 11.0-15.0 L HEMATOCRIT (test code = HCT) 25.5 % 33.0-45.0 L MEAN CELL VOLUME (test code = 81.2 fL 81.0-99.0 N MCV) MEAN CELL HGB (test code = MCH) 25.5 pg 27.0-33.0 L MEAN CELL HGB CONCETRATION 31.4 g/dL 33.0-37.0 L (test code = MCHC) RED CELL DISTRIBUTION WIDTH CV 17.3 % 11.5-14.5 H (test code = RDW) RED CELL DISTRIBUTION WIDTH SD 50.8 fL 37.0-54.0 N (test code = RDW-SD) PLATELET COUNT (test code = 147 x10 3/uL 150-400 L PLT) MEAN PLATELET VOLUME (test code 10.7 fL 7.0-9.0 H = MPV) NEUTROPHIL % (test code = NT%) 74.5 % 56.0-77.0 N IMMATURE GRANULOCYTE % (test 0.3 % 0.0-2.0 N code = IG%) LYMPHOCYTE % (test code = LY%) 16.6 % 14.0-32.0 N MONOCYTE % (test code = MO%) 8.5 % 4.8-9.0 N EOSINOPHIL % (test code = EO%) 0.0 % 0.3-3.7 L BASOPHIL % (test code = BA%) 0.1 % 0.0-2.0 N NUCLEATED RBC % (test code = 0.3 % 0-0 H NRBC%) NEUTROPHIL # (test code = NT#) 5.55 x10 3/uL 2.0-7.6 N IMMATURE GRANULOCYTE # (test 0.02 x10 3/uL 0.00-0.03 N code = IG#) LYMPHOCYTE # (test code = LY#) 1.24 x10 3/uL 1.0-3.8 N MONOCYTE # (test code = MO#) 0.63 x10 3/uL 0.1-0.8 N EOSINOPHIL # (test code = EO#) 0.00 x10 3/uL 0.0-0.2 N BASOPHIL # (test code = BA#) 0.01 x10 3/uL 0.0-0.2 N NUCLEATED RBC # (test code = 0.02 x10 3/uL 0.0-0.1 N NRBC#) MANUAL DIFF REQUIRED (test code NO = MDIFF) HGB [id number] 22:51:00 Test Item Value Reference Range Interpretation Comments HEMOGLOBIN (test code = HGB) 8.1 g/dL 11.0-15.0 L HEMATOCRIT (test code = HCT) 26.3 % 33.0-45.0 L HGB [id number] 19:30:00 Test Item Value Reference Range Interpretation Comments HEMOGLOBIN (test code = HGB) 8.2 g/dL 11.0-15.0 L HEMATOCRIT (test code = HCT) 27.0 % 33.0-45.0 L BASIC METABOLIC [id number] 16:49:00 Test Item Value Reference Range Interpretation Comments SODIUM (test code = NA/ABG) 144 MEQ/L 134-147 N POTASSIUM (test code = K/ABG) 4.0 MEQ/L 3.4-5.0 N CHLORIDE (test code = CL/ABG) 111 MEQ/L 100-108 H CREATININE ABG (test code = 1.2 mg/dL 0.6-1.0 H CREAABG) POC IONIZED CALCIUM (test code = 1.24 MMOL/L 1.12-1.32 N POCCA) POC GLUCOSE (test code = POCGLU) 136 MG/DL HEMOGLOBIN [id number] 16:49:00 Test Item Value Reference Range Interpretation Comments HEMOGLOBIN ABG (test code = HGB/ABG) 9.1 G/DL 11.0-15.0 L [id number] 16:49:00 Test Item Value Reference Range Interpretation Comments HEMATOCRIT (test code = HCT/ABG) 27 % 33.0-45.0 L POC LACTIC [id number] 16:49:00 Test Item Value Reference Range Interpretation Comments POC LACTIC ACID (test code = 0.9 mmol/l 0.9-1.7 N POCLAC) POC VENOUS BLOOD [id number] 16:49:00 Test Item Value Reference Range Interpretation Comments POC VENOUS BLOOD GAS PH (test 7.308 7.33-7.45 L code = POCPHV) POC VENOUS BLOOD GAS PCO2 (test 43.6 mmHg 43-47 N code = DWEDWK7F) POC VENOUS BLOOD GAS PO2 (test 49.9 mmHG 10-50 N code = GZLHN2R) POC TCO2 VENOUS (test code = 23.2 OMBRFI4K) POC HCO3 VENOUS (test code = 21.9 MMOL/L 22-27 L GMYGPX2S) POC BASE EXCESS VENOUS (test code -4.2 MMOL/L -4.0-4.0 L = POCBEV) POC O2 SATURATION VENOUS (test 81.2 % 60-80 H code = GVYG7KV) [id number] 16:49:00 Test Item Value Reference Range Interpretation Comments DAMION (test code 315 SEC 74-137 H Perform ed by certified = BARBARA) 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 Positiv e results do not rule out bacterial infection or co -infection with other viru ses. Negative result s do not preclude SARS-C oV-2 infection andsh ould not be used as the marian e basis for patient managementdecis ions. Negative result s must be combined with otherclinical observations, p atient history, and epidemiological information . Detection of SARS-CoV-2 RNA may be affe cted bysample collec tion methods, storag e conditions, and /or stageof infection. Kalpana l RNA mutations, vacc inations, antiviraltherap eutics, antibiotics, chemotherapeuti c orimmunosuppres henry drugs have not been e valuated for effectson d etection. Results are for the identification of SARS-CoV-2 RNA usingreal-time (RT) polymerase yaritza n reaction (PCR) technolog yfor the qualitative det ection of nucleic acids f rom [id number] v irus and diagnosis of SA RS-CoV-2 virusinfection. It is an Emergency Use Authorization ( EUA) testauthorized by the U.S. FDA. B-TYPE NATRIURETIC [id number] 14:23:00 Test Item Value Reference Range Interpretation Comments B-TYPE NATRIURETIC PEPTIDE (test 103.0 PG/ML 0-100 H code = BNP) BASIC METABOLIC [id number] 14:20:00 Test Item Value Reference Range Interpretation Comments SODIUM (test code = NA) 144 mEq/L 134-147 N POTASSIUM (test code = 4.2 mEq/L 3.4-5.0 N K) CHLORIDE (test code = 108 mEq/L 100-108 N CL) CARBON DIOXIDE (test 27 mEq/l 21-33 N code = CO2) ANION GAP (test code = 14 0-20 N GAP) GLUCOSE (test code = 100 mg/dL 70-110 N GLU) BLOOD UREA NITROGEN 17 mg/dL 7-18 N (test code = BUN) GLOMERULAR FILTRATION 42.5 70-80 L Units of measure = RATE (test code = GFR) ml/mi n/1.73 m2 CREATININE (test code = 1.2 mg/dL 0.6-1.3 N CREAT) CALCIUM (test code = 9.1 mg/dL 8.0-10.5 N CA) [id number] 14:20:00 Test Item Value Reference Range Interpretation Comments ALBUMIN (test code = ALB) 3.60 g/dL 3.4-5.0 N PROTHROMBIN [id number] 14:10:00 Test Item Value Reference Range Interpretation Comments PROTHROMBIN TIME 13.4 SECONDS 9.3-12.9 H PATIENT (test code = PTP) INTERNATIONAL NORMAL 1.2 0.8-1.2 N TARGE T INR BY RATIO (test code = INDICATIO N Indication INR) INR1. Prophylax is of venous thrombos is 2.0 - 3.0 (orthoped ic surgery), Proph ylaxis of venous throm bosis (other than hig h-risk surgery), Treat ment of Deep Vein Thrombosis/Pulm onary Embolism, Preve ntion of systemic emb olism - Tissue heart va lves, Acute Myocardia l Infarction (to prevent systemic emboli sm), Valvular heart disease, Atrial Fibrillation, Bileaflet mecha nical valve in aortic position.2. Mec hanical prosthetic valv es (high risk), 2. 5 - 3.5 Presence of Lup us Anticoagulant o r Antiphospholipi d Antibodies, Pre vention of systemic emb olism - Acute Myocardia l Infarction (to prevent recurrent infar ct). CBC W/AUTO [id number] 14:06:00 Test Item Value Reference Range Interpretation Comments WHITE BLOOD CELL (test code = 5.3 x10 3/uL 4.5-11.0 N WBC) RED BLOOD CELL (test code = 3.81 x10 6/uL 3.54-5.02 N RBC) HEMOGLOBIN (test code = HGB) 9.6 g/dL 11.0-15.0 L HEMATOCRIT (test code = HCT) 32.0 % 33.0-45.0 L MEAN CELL VOLUME (test code = 84.0 fL 81.0-99.0 N MCV) MEAN CELL HGB (test code = MCH) 25.2 pg 27.0-33.0 L MEAN CELL HGB CONCETRATION 30.0 g/dL 33.0-37.0 L (test code = MCHC) RED CELL DISTRIBUTION WIDTH CV 17.3 % 11.5-14.5 H (test code = RDW) RED CELL DISTRIBUTION WIDTH SD 53.0 fL 37.0-54.0 N (test code = RDW-SD) PLATELET COUNT (test code = 172 x10 3/uL 150-400 N PLT) MEAN PLATELET VOLUME (test code 10.8 fL 7.0-9.0 H = MPV) NEUTROPHIL % (test code = NT%) 59.6 % 56.0-77.0 N IMMATURE GRANULOCYTE % (test 0.4 % 0.0-2.0 N code = IG%) LYMPHOCYTE % (test code = LY%) 28.5 % 14.0-32.0 N MONOCYTE % (test code = MO%) 8.1 % 4.8-9.0 N EOSINOPHIL % (test code = EO%) 2.8 % 0.3-3.7 N BASOPHIL % (test code = BA%) 0.6 % 0.0-2.0 N NUCLEATED RBC % (test code = 0.0 % 0-0 N NRBC%) NEUTROPHIL # (test code = NT#) 3.16 x10 3/uL 2.0-7.6 N IMMATURE GRANULOCYTE # (test 0.02 x10 3/uL 0.00-0.03 N code = IG#) LYMPHOCYTE # (test code = LY#) 1.51 x10 3/uL 1.0-3.8 N MONOCYTE # (test code = MO#) 0.43 x10 3/uL 0.1-0.8 N EOSINOPHIL # (test code = EO#) 0.15 x10 3/uL 0.0-0.2 N BASOPHIL # (test code = BA#) 0.03 x10 3/uL 0.0-0.2 N NUCLEATED RBC # (test code = 0.00 x10 3/uL 0.0-0.1 N NRBC#) MANUAL DIFF REQUIRED (test code NO = TERRANCE) - XR CHEST 2 [id number] 00[facility]00[facility] 1935 Sex: F FAX: Carlyle Mandujano MD [phone] [place]: St: PRE FAX: Camryn Padilla MD [phone] Name: MALU GUZMAN [facility] : 1935 Age/S: 86/F [address] [place] [address] Unit #: [id number] Loc: [place] [address] Phys: Camryn Gonzalez MD Acct: [id number] Dis Date: Status: PRE IN PHONE #: [phone] Exam Date: 10/12/2021 [facility] FAX #: [phone] Reason: PREOP EXAMS: CPT CODE: [id number] XR CHEST 2 V 15352 PROCEDURE INFORMATION: Exam: XR Chest Exam date and time: 10/12/2021 2:48 PM Age: 86 years old Clinical indication: Pre-operative exam; Respiratory screening exam; Additional info: Preop TECHNIQUE: Imaging protocol: XR of the chest. Views: 2 views. PA and Lateral COMPARISON: CT HEART W CN ART/GRAFTS 09/11/2021 10:19 AM FINDINGS: Lungs: The lungs are clear. Pleural spaces: No pleural effusion. No pneumothorax. Heart/Mediastinum: Cardiac silhouette is normal. Retrocardiac opacity corresponding to hiatal hernia containing portion of the proximal stomach. The mediastinal contours are otherwise normal. Calcified plaque thoracic aorta. Coronary arterial calcifications and or metallic stents. The pulmonary vasculature is normal. Bones/joints: There is no acute skeletal abnormality. IMPRESSION: 1. No acute findings. 2. Coronary arterial calcifications and or stents. 3. Hiatal hernia. Electronically Signedby Chantell Clemons on 10/12/2021 at 1706 Reported and signed by: Donovan Clemons M.D.CC: Carlyle Walter MD; Camryn Gonzalez MD Technologist: RT Ravin(R) Trnscrd Date/Time/By: 10/12/2021 (1705) : By: Larry Orig Print D/T: S: 10/12/2021 (1705) PAGE 1 Signed Report COVID 19 Asymptomatic IH [id number] 11:39:00 Test Item Value Reference Range Interpretation Comments COVID 19 Asymptomatic Negative Negative A nega tive result is IH AG (test code = presumpti ve and should COVNONPUIAG) be confirmedwit h an FDA authorized mole cular assay, if neces latrice forpatient anna marie gement.A positive result does not rule out co-inf ections withother patho gens.This test detects phylciia th viable (live) and non-viable,SARS -CoV, and SARS-CoV-2. Dennis t performance dep ends on theamount of vi andres (antigen) in th e sample.This dennis t has not been FDA cleare d or approved; the t est hasbeen authori zed by FDA under an Em ergency Use Authorizati on(EUA) for use by labo ratories certified under the CLIA thatmeet the requirements to perform moderate, high or waivedcomplexit y tests. CREATININE W ESTIMATED [id number] 11:29:00 Test Item Value Reference Range Interpretation Comments BEDSIDE CREATININE 1.5 MG/DL 0.6-1.3 H Performed by (test code = CREATBED) certi fied duplicator punch operator at [facility] GLOMERULAR FILTRATION 35 ML/MIN Perfor med by RATE POC (test code = certif ied duplicator punch operator at [facility]) [facility] - CT ANGIO [id number] 00:00:00 [facility] : 1935 Sex: F Name: MALU GUZMAN [facility] : 1935 Age/S: 86 / F [address] [place] [address] Blvd Unit #: [id number] Loc: [place] [address] Phys: Marquez Bey MD Acct: [id number] Dis Date: Status: REG CLI PHONE #: [phone] Exam Date: 09/11/2021 1041 FAX #: [phone] Reason: TAVR EXAMS: CPT CODE: [id number] CT ANGIO CHEST [id number] PROCEDURE INFORMATION: Exam: CTA Chest With Contrast Exam date and time: 09/11/2021 10:19 AM Age: 86 years old Clinical indication: Other: Aortic stenosis TECHNIQUE: Imaging protocol: Computed tomographic angiography of the chest with contrast. 3D rendering (Not supervised by radiologist): MIP and/or 3D reconstructed images were created by the technologist. Radiation optimization: AllCT scans at this facility use at least one of these dose optimization techniques: automated exposurecontrol; mA and/or kV adjustment per patient size (includes targeted exams where dose is matched to clinical indication); or iterative reconstruction. Contrast material: ISOVUE 370; Contrast volume: 100 ml; Contrast route: INTRAVENOUS (IV); CT Radiation Dose: DLP = 2472.8 mGy-cm COMPARISON: No relevant prior studies available. FINDINGS: Pulmonary arteries: Ectatic pulmonary arteries. Aorta: Moderate to severe aortic root calcification is seen. Minimal to mild thoracic aortic scattered calcificationsis seen. Lungs: No consolidation. No masses. 4 mm noncalcified nodule in the right posterior lung base on image 120 of series 4. Pleural spaces: Unremarkable. No pneumothorax. No pleural effusion. Heart: Heart is borderline in size. There is moderate atherosclerotic calcification of the coronary arteries. Lymph nodes: No enlarged lymph nodes. Bones/joints: Age related degenerative changes. No acute fracture. Soft tissues: Unremarkable. IMPRESSION: 1. Moderate to severe aortic root calcification is seen. 2. Minimal to mild thoracic aortic scattered calcifications is seen. 3. Coronary artery disease. 4. Ectatic pulmonary arteries, which may represent pulmonary hypertension. 5. 4 mm noncalcified nod ule in the right lung base. 2017 Fleischner criteria guidelines suggest the following. For low-risk patients, no follow-up is necessary. For high-risk patients (smoking history or other known risk factors to increase their risk of malignancy) an optional chest CT at 12 months could be performed. PAGE 1 Signed Report (CONTINUED) Name: [facility] [place] : 1935 Age/S: 86 / F [address] [place] [address] Unit #: [id number] Loc: [place] [address] Phys: Marquez Bey MD Acct: [id number] Dis Date: Status: REG CLI PHONE #: [phone] Exam Date: 09/11/2021 1041 FAX #: [phone] Reason: TAVR EXAMS: CPT CODE: [id number] CT ANGIO CHEST 32489 (Continued) PROCEDURE INFORMATION: Exam: CTA Heart and Coronary Arteries; TAVR Planning Exam date and time: 09/11/2021 10:19AM Age: 86 years old Clinical indication: Other: Aortic stenosis TECHNIQUE: Imaging protocol: CTA heart, coronary arteries and bypass grafts (when present) with contrast material including 3D image post processing (including evaluation of cardiac structure and morphology, assessment of cardiac function, and evaluation of venous structures, if performed). Exam performed for transcatheter aortic valve replacement (TAVR) planning. 3D rendering (Not supervised by radiologist): MIP and/or 3D reconstructedimages were created by the technologist. Acquisition mode: A prospective trigger or retrospective gating technique was used according to site specific protocol. Scanner: A minimum of [address] or [address] coverage [address] scanner was used according to site location. Radiation optimization: All CT scans at this facility use at least one of these dose optimization techniques: automated exposure control; mA and/or kV adjustment per patient size (includes targeted exams where dose is matched to clinical indication); or iterative reconstruction. Contrast material: ISOVUE 370; Contrast volume: 100 ml; Contrast route: INTRAVENOUS (IV); Pharmacological intervention: None. Other technique: 3D renderinD reconst ructed images were created, reviewed and saved. COMPARISON: No relevant prior studies available. FINDINGS: Estimated root/annulus diameters are as follows: Aortic annulus diameter: 3 cm Sinus of Valsalva diameter: 3.5 cm Sinotubular junction diameter: 2.9 cm Right cusp height (to RCA takeoff): 1.6 cm Left cusp height (to Left main takeoff): 1.7 cm Estimated aortic diameters are as follows: Mid ascending aorta: 3.5 cm Mid transverse arch: 3 cm Descending thoracic aorta at the level of the pulmonary arteries: 2.8 cm PAGE 2 Signed Report (CONTINUED) Name: MALU GUZMAN : 1935 Age/S: 86 / F [address] [place] [address] Unit #: [id number] Loc: [place] [address] Phys: Marquez Bey MD Acct: [id number] Dis Date: Status: REG CLI PHONE #: [phone] Exam Date: 09/11/2021 1041 FAX#: [phone] Reason: TAVR EXAMS: CPT CODE: [id number] CT ANGIO CHEST 97832 (Continued) IMPRESSION: Aortic root measurements as above. PROCEDURE INFORMATION: Exam: CTA Abdomen and Pelvis With Contrast Exam date and time: 09/11/2021 10:19 AM Age: 86 years old Clinical indication: Other: Aortic stenosis TECHNIQUE: Imaging protocol: Computed tomographic angiography of the abdomen and pelvis with contrast material. 3D rendering (Not supervised by radiologist): MIP and/or 3D reconstructed images were created by the technologist. Radiation optimization: All CT scans at this facility use at least one of these dose optimization techniques: automated exposure control; mA and/or kV adjustment per patient size (includes targeted exams where dose is matched to clinical indication); or iterative reconstruction. Contrast material: ISOVUE 370; Contrast volume: 100 ml; Contrast route: INTRAVENOUS (IV); COMPARISON: No relevant prior studies available. FINDINGS: Estimated aortoiliac/iliofemoral arterial diameters are as follows: Abdominal aorta just below the renal arteries: 2.1 cm Distal abdominal aorta at iliac bifurcation: 1.7 cm Right common iliac artery: 1.3 cm Left common iliac artery: 1.2 cm Right common femoral artery: 0.9 cm Left common femoral artery: 1 cm Mediastinal space: Moderate-sized hiatal hernia. Aorta: There is atherosclerotic calcification of the aorta. No aneurysm or dissection. Celiac trunk and mesenteric arteries: No occlusion or significant stenosis. Mild atherosclerotic changes. Renal arteries: No occlusion or significant stenosis. Mild atherosclerotic changes. Right iliac arteries: No occlusion or significant stenosis. Mild atherosclerotic changes. Left iliac arteries: No occlusion or significant stenosis. Mild atherosclerotic changes. Lymph the Liver: Few small simple cysts involving the liver. Gallbladder and bile ducts: No calcified stones. No ductal dilation. PAGE 3 Signed Report (CONTINUED) Name: MALU GUZMAN : 1935 Age/S: 86 / F [address] [place] [address] Unit #: [id number] Loc: [place] [address] Phys: Marquez Bey MD Acct: [id number] Dis Date: Status: REG CLI PHONE #: [phone] Exam Date: 09/11/2021 1041 FAX #: [phone] Reason: TAVR EXAMS: CPT CODE: [id number] CT ANGIO CHEST 23569 (Continued) Pancreas: No ductal dilation. 2 cm cystic lesion is seen involving the pancreatic neck. Spleen: Unremarkable. Adrenal glands: Unremarkable. No mass. Kidneys and ureters: Small simple cyst in the right kidney upper pole. Exophytic 3.8 cm simple cyst in the left kidney upper pole. Mild scarring is seen in the left kidney upper pole. No hydronephrosis. Stomach and bowel: No obstruction. Appendix: No evidence of appendicitis. Intraperitoneal space: No free air. No significant fluid collection. Lymph nodes: No enlarged lymph nodes. Urinary bladder: Bladder is not well distended limiting its evaluation. Reproductive: Prior hysterectomy. Bones/joints: Age related degenerative changes. No acute fracture. Soft tissues: Unremarkable. In IMPRESSION: Aortic measurements as above. No acute findings. 2 cm cystic lesion is seen involving the pancreatic neck. Further evaluation with nonemergent MRI abdomen with and without contrast is recommended. Moderate-sized hiatal hernia. at 1620 Reported and signed by: Adam Love D.O. CC: Carlyle Walter MD; Marquez Bey MD Technologist:Yusuf Perkins RT(R)(CT) CTDI: DLP: Trnscb Date/Time: 09/11/2021 (1619) [email or web address] Orig Print D/T: S: 09/11/2021 (1619) PAGE 4 Signed Report- CTA HEART W CN ART/[id number] 00:00:00 [facility] : 1935 Sex: F Name: MALU GUZMAN [facility] Terry Granado : 1935 Age/S: 86 / F [address] [facility] Unit #: [id number] Loc: [place] [address] Phys: Marquez Bey MD Acct: [id number] Dis Date: Status: REG CLI PHONE #: [phone] Exam Date: 09/11/2021 1041 FAX #: [phone] Reason: EXAMS: CPT CODE: [id number] CTA HEART W CN ART/GRAFTS 89540 PROCEDURE INFORMATION: Exam: CTA Chest With Contrast Exam date and time: 09/11 10:19 AM Age: 86 years old Clinical indication: Other: Aortic stenosis TECHNIQUE: Imaging protocol: Computed tomographic angiography of the chest with contrast. 3D rendering (Not supervised by radiologist): MIP and/or 3D reconstructed images were created by the technologist. Radiation optimization: All CT scans at this facility use at least one of these dose optimization techniques: automated exposure control; mA and/or kV adjustment per patient size (includes targeted exams where dose is matched to clinical indication); or iterative reconstruction. Contrast material: ISOVUE 370; Contrast volume: 100 ml; Contrast route: INTRAVENOUS (IV); CT Radiation Dose: DLP = 2472.8 mGy-cm COMPARISON: [place] prior studies available. FINDINGS: Pulmonary arteries: Ectatic pulmonary arteries. Aorta: Moderate to severe aortic root calcification is seen. Minimal to mild thoracic aortic scattered calcifications is seen. Lungs: No consolidation. No masses. 4 mm noncalcified nodule in the right posterior lung base on image 120 of series 4. Pleural spaces: Unremarkable. No pneumothorax. No pleural effusion. Heart: Heart is borderline in size. There is moderate atherosclerotic calcification of the coronary arteries. Lymph nodes: No enlarged lymph nodes. Bones/joints: Age related degenerative changes. No acute fracture. Soft tissues: Unremarkable. IMPRESSION: 1. Moderate to severe aortic root calcification is seen. 2. Minimal to mild thoracic aortic scattered calcifications is seen. 3. Coronary artery disease. 4. Ectatic pulmonary arteries, which may represent pulmonary hypertension. 5. 4 mm noncalcified nodule in the right lung base. 2017 Fleischner criteria guidelines suggest the following. For low-risk patients, no follow-up is necessary. For high-risk patients (smoking history or other known risk factors to increase their risk of malignancy) an optional chest CT at 12 months could be performed. PAGE 1 Signed Report (CONTINUED) Name: MALU GUZMAN : 1935 Age/S: 86 / F [address] [place] [address] Unit #: [id number] Loc: [place] [address] Phys: Marquez Bey MD Acct: [id number] Dis Date: Status: REG CLI PHONE #: [phone] Exam Date: 09/11/2021 1041 FAX #: [phone]: EXAMS: CPT CODE: [id number] CTA HEART W CN ART/GRAFTS 41132 (Continued) PROCEDURE INFORMATION: Exam: CTA Heart and Coronary Arteries; TAVR Planning Exam date and time:09/11/2021 10:19 AM Age: 86 years old Clinical indication: Other: Aortic stenosis TECHNIQUE: Imaging protocol: CTA heart, coronary arteries and bypass grafts (when present) with contrast material including 3D image postprocessing (including evaluation of cardiac structure and morphology, assessment of cardiac function, and evaluation of venous structures, if performed). Exam performed for transcatheter aortic valve replacement (TAVR) planning. 3D rendering (Not supervised by radiologist): MIP and/or3D reconstructed images were created by the technologist. Acquisition mode: A prospective trigger orretrospective gating technique was used according to site specific protocol. Scanner: A minimum of [address] slice or [address] scanner was used according to site location. Radiation optimization: All CT scans at this facility use at least one of these dose optimization techniques: automated exposure control; mA and/or kV adjustment per patient size (includes targeted exams where dose is matched to clinical indication); or iterative reconstruction. Contrast material: ISOVUE 370; Contrast volume: 100 ml; Contrast route: INTRAVENOUS (IV); Pharmacological intervention: None. Other technique: 3D renderinD reconstructed images were created, reviewed and saved. COMPARISON: No relevant prior studies available. FINDINGS: Estimated root/annulus diameters are as follows: Aortic annulus diameter: 3 cm Sinus of Valsalva diameter: 3.5 cm Sinotubular junction diameter: 2.9 cm Right cusp height (to RCA takeoff): 1.6 cm Left cusp height (to Left main takeoff): 1.7 cm Estimated aortic diameters are as follows: Mid ascending aorta: 3.5 cm Mid transverse arch: 3 cm Descending thoracic aorta at the level of the pulmonary arteries: 2.8 cm PAGE 2 Signed Report (CONTINUED) Name: MALU GUZMAN : 1935 Age/S: 86 / F [address] [place] [address] Unit #: [id number] Loc: [place] [address] Phys: Marquez Bey MD Acct: [id number] Dis Date: Status: REG CLI PHONE #: [phone] Exam Date: 09/11/2021 1041 FAX #: [phone] Reason: EXAMS: CPT CODE: [id number] CTA HEART W CN ART/GRAFTS 56100 (Continued) IMPRESSION: Aortic root measurements as above. PROCEDURE INFORMATION: Exam: CTA Abdomen and Pelvis With Contrast Exam date and time: 09/11/2021 10:19 AM Age: 86 years old Clinical indication: Other: Aortic stenosis TECHNIQUE: Imaging protocol: Computed tomographic angiography of the abdomen and pelvis with contrast material. 3D rendering (Not supervised by radiologist): MIP and/or 3D reconstructed images were created by the technologist. Radiation optimization: All CT scans at this facility use at least one of these dose optimization techniques: automated exposure control; mA and/or kV adjustment per patient size (includes targeted exams where dose is matched to clinical indication); or iterative reconstruction. Contrast material: ISOVUE 370; Contrast volume: 100ml; Contrast route: INTRAVENOUS (IV); COMPARISON: No relevant prior studies available. FINDINGS: Estimated aortoiliac/iliofemoral arterial diameters are as follows: Abdominal aorta just below the renalarteries: 2.1 cm Distal abdominal aorta at iliac bifurcation: 1.7 cm Right common iliac artery: 1.3 cm Left common iliac artery: 1.2 cm Right common femoral artery: 0.9 cm Left common femoral artery: 1cm Mediastinal space: Moderate-sized hiatal hernia. Aorta: There is atherosclerotic calcification ofthe aorta. No aneurysm or dissection. Celiac trunk and mesenteric arteries: No occlusion or significant stenosis. Mild atherosclerotic changes. Renal arteries: No occlusion or significant stenosis. Mild atherosclerotic changes. Right iliac arteries: No occlusion or significant stenosis. Mild atherosclerotic changes. Left iliac arteries: No occlusion or significant stenosis. Mild atherosclerotic changes. Lymph the Liver: Few small simple cysts involving the liver. Gallbladder and bile ducts: No calcified stones. No ductal dilation. PAGE 3 Signed Report (CONTINUED) Name: MALU GUZMAN [facility] Terry Granado : 1935 Age/S: 86 / F [address] [place] [address] Unit #: [id number] Loc: [place] [address] Phys:Marquez Bey MD Acct: [id number] Dis Date: Status: REG CLI PHONE #: [phone] Exam Date: 09/11/2021 1041 FAX #: [phone] Reason: EXAMS: CPT CODE: [id number] CTA HEART W CN ART/GRAFTS 53001 (Continued) Pancreas: No ductal dilation. 2 cm cystic lesion is seen involving the pancreatic neck. Spleen: Unremarkable. Adrenal glands: Unremarkable. No mass. Kidneys and ureters: Small simple cyst in the right kidney upper pole. Exophytic 3.8 cm simple cyst in the left kidney upper pole. Mild scarringis seen in the left kidney upper pole. No hydronephrosis. Stomach and bowel: No obstruction. Appendix: No evidence of appendicitis. Intraperitoneal space: No free air. No significant fluid collection. Lymph nodes: No enlarged lymph nodes. Urinary bladder: Bladder is not well distended limiting its evaluation. Reproductive: Prior hysterectomy. Bones/joints: Age related degenerative changes. No acutefracture. Soft tissues: Unremarkable. In IMPRESSION: Aortic measurements as above. No acute findings. 2 cm cystic lesion is seen involving the pancreatic neck. Further evaluation with nonemergent MRI abdomen with and without contrast is recommended. Moderate-sized hiatal hernia. at 1620 Reported and signed by: Adam Love D.O. CC: Carlyle Walter MD; Marquez Bey MD Technologist:Yusuf Perkins, RT(R)(CT) CTDI: DLP: Trnscb Date/Time: 09/11/2021 (1619) [email or web address] Orig Print D/T: S: 09/11/2021 (162) PAGE 4 Signed Report- CTA ABD PEL W [id number] 00:00:00 [facility] 1935 Sex: F Name: MALU GUZMAN : 1935 Age/S: 86 / F [address] [place] [address] Blvd Unit #: [id number] Loc: [place] [address] Phys: Marquez Bey MD Acct: [id number] Dis Date: Status: REG CLI PHONE #: [phone] Exam Date: 09/11/2021 1041 FAX #: [phone] Reason: TAVR EXAMS: CPT CODE: [id number] CTA ABD PEL W CONT 87099 PROCEDURE INFORMATION: Exam: CTA Chest With Contrast Exam date and time: 2021 10:19 AM Age: 86 years old Clinical indication: Other: Aortic stenosis TECHNIQUE: Imaging protocol: Computed tomographic angiography of the chest with contrast. 3D rendering (Not supervised by radiologist): MIP and/or 3D reconstructed images were created by the technologist. Radiation optimization: All CT scans at this facility use at least one of these dose optimization techniques: automated exposure control; mA and/or kV adjustment per patient size (includes targeted exams where dose is matched to clinical indication); or iterative reconstruction. Contrast material: ISOVUE 370; Contrast volume: 100 ml; Contrast route: INTRAVENOUS (IV); CT Radiation Dose: DLP = 2472.8 mGy-cm COMPARISON: No relevant prior studies available. FINDINGS: Pulmonary arteries: Ectatic pulmonary arteries. Aorta: Moderate to severe aortic root calcification is seen. Minimal to mild thoracic aortic scattered calcifications is seen. Lungs: No consolidation. No masses. 4 mm noncalcified nodule in the right posterior lung base on image 120 of series 4. Pleural spaces: Unremarkable. No pneumothorax. No pleural effusion. Heart: Heart is borderline in size. There is moderate atherosclerotic calcification of the coronary arteries. Lymph nodes: No enlarged lymph nodes. Bones/joints: Age related degenerative changes. No acute fracture. Soft tissues: Unremarkable. IMPRESSION: 1. Moderate to severe aortic root calcification is seen. 2. Minimal to mild thoracic aortic scattered calcifications is seen. 3. Coronary artery disease. 4. Ectatic pulmonary arteries, which may represent pulmonary hypertension. 5. 4 mm noncalcified nodule in the right lung base. 2017 Fleischner criteria guidelines suggest the following. For low-risk patients, no follow-up is necessary. For high-risk patients (smoking history or other known risk factors to increase their risk of malignancy) an optional chest CT at 12 months could be performed. PAGE 1 Signed Report (CONTINUED) Name: MALU GUZMAN : 1935 Age/S: 86 / F [address] [place] [address] Blvd Unit #: [id number] Loc: [place] [address] Phys: Marquez Bey MD Acct: [id number] Dis Date: Status: REG CLI PHONE #: [phone] Exam Date: 09/11/2021 1041 FAX #: [phone]: TAVR EXAMS: CPT CODE: [id number] CTA ABD PEL W CONT 25134 (Continued) PROCEDURE INFORMATION: Exam: CTA Heart and Coronary Arteries; TAVR Planning Exam date and time: 09/11/2021 10:19 AM Age: 86 years old Clinical indication: Other: Aortic stenosis TECHNIQUE: Imaging protocol: CTA heart, coronary arteries and bypass grafts (when present) with contrast material including 3D image postprocessing (including evaluation of cardiac structure and morphology, assessment of cardiac function, and evaluation of venous structures, if performed). Exam performed for transcatheteraortic valve replacement (TAVR) planning. 3D rendering (Not supervised by radiologist): MIP and/or 3D reconstructed images were created by the technologist. Acquisition mode: A prospective trigger or retrospective gating technique was used according to site specific protocol. Scanner: A minimum of [address] slice or [address] scanner was used according to site location. Radiation optimization: AllCT scans at this facility use at least one of these dose optimization techniques: automated exposurecontrol; mA and/or kV adjustment per patient size (includes targeted exams where dose is matched to clinical indication); or iterative reconstruction. Contrast material: ISOVUE 370; Contrast volume: 100 ml; Contrast route: INTRAVENOUS (IV); Pharmacological intervention: None. Other technique: 3D renderinD reconstructed images were created, reviewed and saved. COMPARISON: No relevant prior studiesavailable. FINDINGS: Estimated root/annulus diameters are as follows: Aortic annulus diameter: 3 cm Sinus of Valsalva diameter: 3.5 cm Sinotubular junction diameter: 2.9 cm Right cusp height (to RCA takeoff): 1.6 cm Left cusp height (to Left main takeoff): 1.7 cm Estimated aortic diameters are as follows: Mid ascending aorta: 3.5 cm Mid transverse arch: 3 cm Descending thoracic aorta at the level ofthe pulmonary arteries: 2.8 cm PAGE 2 Signed Report (CONTINUED) Name: MALU GUZMAN [facility] [place] : 1935 Age/S: 86 / F [address] [place] [address] Blvd Unit #: [id number] Loc: [place] [address] Phys: Marquez Shaffer MD Acct: [id number] Dis Date: Status: REG CLI PHONE #: [phone] Exam Date: 09/11/2021 1041 FAX #: [phone] Reason: TAVR EXAMS: CPT CODE: [id number] CTA ABD PEL W CONT 09384 (Continued) IMPRESSION: Aortic root measurements as above. PROCEDURE INFORMATION: Exam: CTA Abdomen and Pelvis With Contrast Exam date and time: 09/11/2021 10:19 AM Age: 86 years old Clinical indication: Other: Aortic stenosis TECHNIQUE: Imaging protocol: Computed tomographic angiography of the abdomen and pelvis with contrast material. 3D rendering (Not supervised by radiologist): MIP and/or 3D reconstructed images were created by the technologist. Radiation optimization: All CT scans at this facility use at least one of these dose optimization techniques: automated exposure control; mA and/or kV adjustment per patient size (includes targeted exams where dose is matched to clinical indication); or iterative reconstruction. Contrast material: ISOVUE 370; Contrast volume: 100 ml;Contrast route: INTRAVENOUS (IV); COMPARISON: No relevant prior studies available. FINDINGS: Estimated aortoiliac/iliofemoral arterial diameters are as follows: Abdominal aorta just below the renal arteries: 2.1 cm Distal abdominal aorta at iliac bifurcation: 1.7 cm Right common iliac artery: 1.3 cm Left common iliac artery: 1.2 cm Right common femoral artery: 0.9 cm Left common femoral artery: 1 cmMediastinal space: Moderate-sized hiatal hernia. Aorta: There is atherosclerotic calcification of the aorta. No aneurysm or dissection. Celiac trunk and mesenteric arteries: No occlusion or significantstenosis. Mild atherosclerotic changes. Renal arteries: No occlusion or significant stenosis. Mild atherosclerotic changes. Right iliac arteries: No occlusion or significant stenosis. Mild atherosclerotic changes. Left iliac arteries: No occlusion or significant stenosis. Mild atherosclerotic changes.Lymph the Liver: Few small simple cysts involving the liver. Gallbladder and bile ducts: No calcified stones. No ductal dilation. PAGE 3 Signed Report (CONTINUED) Name: MALU GUZMAN [facility] Terry Granado : 1935 Age/S: 86 / F [address] [place] [address] Blvd Unit #: [id number] Loc: [place] [address] Phys: Marquez Bey MD Acct: [id number] Dis Date: Status: REG CLI PHONE #: [phone] Exam Date: 09/11/2021 104 FAX #: [phone] Reason: TAVR EXAMS: CPT CODE: [id number] CTA ABD PEL W CONT 12691 (Continued) Pancreas: No ductal dilation. 2 cm cystic lesion is seen involving the pancreatic neck. Spleen: Unremarkable. Adrenal glands: Unremarkable. No mass. Kidneys and ureters: Small simple cyst in the right kidney upper pole. Exophytic 3.8 cm simple cyst in the left kidney upper pole. Mild scarring is seen in the left kidney upper pole. No hydronephrosis. Stomach and bowel: No obstruction. Appendix: No evidence of appendicitis. Intraperitoneal space: No free air. No significant fluid collection. Lymph nodes: No enlarged lymph nodes. Urinary bladder: Bladder is not well distended limiting its evaluation. Reproductive: Prior hysterectomy. Bones/joints: Age related degenerative changes. No acute fracture. Soft tissues: Unremarkable. In IMPRESSION: Aortic measurements as above. No acute findings. 2 cm cystic lesion is seen involving the pancreatic neck. Further evaluation with nonemergent MRI abdomen with and without contrast is recommended. Moderate-sized hiatal hernia. at 1620 Reported and signed by: Adam Love D.O. CC: Carlyle Walter MD; Marquez Bey MD Technologist:Yusuf Maddie, RT(R)(CT) CTDI: DLP: Trnscb Date/Time:09/11/2021 (628) [email or web address] Orig Print D/T: S: 09/11/2021 (834) PAGE 4 Signed Report
[2022-04-26 11:41] LABS: Absolute Lymphocytes (CBC) 0.9 K/uL (0.7-4.9); Hematocrit 21.1 % (36.0-45.0); Lymphocytes % 19.4 % (15.3-44.8); MCV 81.1 fL (80-100)
[2022-04-26 11:56] LABS: Potassium 4.2 mmol/L (3.5-5.1)
[2022-04-26] MEDS ORDERED: NA CHLORIDE 0.9% 250 ML ONE (15:40)
--- NOTE | 2022-04-26 17:49 | EDPHYS ---
Physician Documentation [facility] Name: Agustina Laird Age: 86 yrs Sex: Female : 1935 Arrival Date: 04/26/2022 Time: 11:04 Bed 6 Private MD: Carlyle Walter T ED Physician Thom Whitehead HPI: 04/26 11:18 This 86 yrs old Female presents to ER via Unassigned with complaints of Abnormal Lab ms3 Results. 11:18 86-year-old female with past medical history of aortic valve replacement, anemia, ms3 hyperlipidemia presents after Dr. Walter's office called to inform patient her hemoglobin was seven-point something and should be greater than 11. Patient has had fatigue has been present since October. Patient also endorses some shortness of breath. Patient denies pain. Patient denies alleviating or inciting factors. Patient denies black or bloody stools.. Historical: - Allergies: 11:32 Dilaudid (Hives); iw 11:32 Lovastatin (Unknown reaction); iw - Home Meds: 11:32 allopurinol 100 mg Oral tab 1 tab 2 times per day [Active]; citalopram 10 mg tab 1 tab iw once daily [Active]; diazepam 5 mg Oral tab 1 tab daily [Active]; gabapentin 300 mg Oral cap 1 cap daily [Active]; Lasix 40 mg Oral tab 1 tab once daily [Active]; levothyroxine 112 mcg tab 1 tab once daily [Active]; pantoprazole 40 mg Oral TbEC 1 tab once daily [Active]; - PMHx: 11:32 CAD; Gout; Hypertension; Hypothyroidism; Arthritis; Depression; GERD; iw - Immunization history:: Adult Immunizations unknown. - Social history:: Smoking status: Patient denies any tobacco usage or history of. ROS: 11:18 Eyes: Negative for injury, pain, redness, and discharge, Neck: Negative for injury, ms3 pain, and swelling, Cardiovascular: Negative for chest pain, and palpitations. Abdomen/GI: Negative for abdominal pain, nausea, vomiting, diarrhea, and constipation, MS/Extremity: Negative for injury and deformity, Skin: Negative for injury, rash, and discoloration. 11:18 Constitutional: Positive for fatigue. 11:18 Respiratory: Positive for shortness of breath. 11:18 All other systems are negative. Exam: 11:18 Constitutional: This is a well developed, well nourished patient who is awake, alert, ms3 and in no acute distress. Neck: Trachea midline, no cervical lymphadenopathy. Supple, full range of motion without nuchal rigidity, or vertebral point tenderness. No Meningismus. Chest/axilla: Normal chest wall appearance and motion. Nontender with no deformity. Respiratory: Lungs have equal breath sounds bilaterally, clear to auscultation and percussion. No rales, rhonchi or wheezes noted. No increased work of breathing, no retractions or nasal flaring. Abdomen/GI: Soft, non-tender, with normal bowel sounds. No distension or tympany. No guarding or rebound. No evidence of tenderness throughout. Skin: Warm, dry with normal turgor. Normal color with no rashes, no lesions, and no evidence of cellulitis. MS/ Extremity: Pulses equal, no cyanosis. Neurovascular intact. Full, normal range of motion. Psych: Awake, alert, with orientation to person, place and time. Behavior, mood, and affect are within normal limits. 11:18 Cardiovascular: Rate: normal, Rhythm: regular, Pulses: no pulse deficits are appreciated, Heart sounds: murmur, systolic. Vital Signs: 11:31 BP 167 / 89; Pulse 59; Resp 16; Temp 98.3; Pulse Ox 99% on R/A; iw 14:00 BP 171 / 86; Pulse 72; Resp 18; Pulse Ox 98% on R/A; ph 15:00 BP 169 / 78; Pulse 68; Resp 16; Pulse Ox 99% on R/A; ph 16:00 BP 162 / 55; Pulse 76; Resp 18; Temp 97.7; Pulse Ox 100% on R/A; ph 17:00 BP 158 / 58; Pulse 63; Resp 18; Temp 97.8; Pulse Ox 99% ; ph MDM: 11:18 Patient medically screened. ms3 11:18 Differential Diagnosis Anemia vs lab abnormality vs fatigue. ms3 15:00 ED course: Discussed obtaining rectal exam with patient and patient declines. Patient ms3 states her blood has not been black, she has not had any rectal bleeding.. 17:49 Data reviewed: vital signs, nurses notes, lab test result(s), and as a result, I will ms3 discharge patient. ED course: Patient's blood thinners at this time and she states she would like to leave. Patient follow-up with her primary care physician in 2 to 3 days. Patient's increased pain. All questions were answered. Return precautions discussed include worsening symptoms, or any other concerns.. 04/26 11:18 Order name: CBC with Diff; Complete Time: 12:23 ms3 04/26 11:18 Order name: Type And Screen ms3 04/26 11:18 Order name: BMP; Complete Time: 12:23 ms3 04/26 14:23 Order name: Packed RBCs (Additional Unit) EDMS Administered Medications: No medications were administered Disposition Summary: 04/26/22 17:49 Discharge Ordered Location: Home ms3 Condition: Stable ms3 Diagnosis - Anemia, unspecified ms3 - Essential (primary) hypertension ms3 Followup: ms3 - With: Carlyle Walter MD - When: 2 - 3 days - Reason: Recheck today's complaints Discharge Instructions: - Discharge Summary Sheet ms3 - Anemia ms3 - Blood Transfusion, Adult ms3 - Hypertension, Adult ms3 Forms: - Medication Reconciliation Form ms3 - Thank You Letter ms3 - Antibiotic Education ms3 - Prescription Opioid Use ms3 Signatures: Dispatcher [employer] EDClari Gallardo RN RN iw Rhea Leiva RN RN Thom Paredes, DO ms3 Corrections: (The following items were deleted from the chart) 11:19 11:18 The history from the nurse's notes was reviewed and I agree with what is ms3 documented. ms3 14:55 13:28 BB Add On+[id number].LAB.BRZ ordered. EDMS EDMS
--- NOTE | 2022-04-26 17:49 | ER ---
Nurse's Notes [facility] Name: Agustina Laird Age: 86 yrs Sex: Female : 1935 Arrival Date: 04/26/2022 Time: 11:04 Bed 6 Private MD: Carlyle Walter T Diagnosis: Anemia, unspecified;Essential (primary) hypertension Presentation: 04/26 11:31 Chief complaint: Patient states: Dr. Walter had labs drawn Saturday and told me to come to iw the ER , she does not know what labs were abnormal. Coronavirus screen: At this time, the client does not indicate any symptoms associated with coronavirus-19. Ebola Screen: Patient negative for fever greater than or equal to 101.5 degrees Fahrenheit, and additional compatible Ebola Virus Disease symptoms Patient denies exposure to infectious person. Patient denies travel to an Ebola-affected area in the 21 days before illness onset. No symptoms or risks identified at this time. Initial Sepsis Screen: Does the patient meet any 2 criteria? No. Patient's initial sepsis screen is negative. Does the patient have a suspected source of infection? No. Patient's initial sepsis screen is negative. Risk Assessment: Do you want to hurt yourself or someone else? Patient reports no desire to harm self or others. Onset of symptoms was April 26, 2022. 11:31 Method Of Arrival: Wheelchair iw 11:31 Acuity: CAITY 3 iw Historical: - Allergies: 11:32 Dilaudid (Hives); iw 11:32 Lovastatin (Unknown reaction); iw - Home Meds: 11:32 allopurinol 100 mg Oral tab 1 tab 2 times per day [Active]; citalopram 10 mg tab 1 tab iw once daily [Active]; diazepam 5 mg Oral tab 1 tab daily [Active]; gabapentin 300 mg Oral cap 1 cap daily [Active]; Lasix 40 mg Oral tab 1 tab once daily [Active]; levothyroxine 112 mcg tab 1 tab once daily [Active]; pantoprazole 40 mg Oral TbEC 1 tab once daily [Active]; - PMHx: 11:32 CAD; Gout; Hypertension; Hypothyroidism; Arthritis; Depression; GERD; iw - Immunization history:: Adult Immunizations unknown. - Social history:: Smoking status: Patient denies any tobacco usage or history of. Screenin:54 Abuse screen: Denies threats or abuse. Denies injuries from another. Nutritional ph screening: No deficits noted. Tuberculosis screening: No symptoms or risk factors identified. Fall Risk None identified. Assessment: 14:55 General: Appears in no apparent distress. comfortable, well groomed, Behavior is calm, ph cooperative, appropriate for age. Pain: Denies pain. Neuro: Level of Consciousness is awake, alert, obeys commands, Oriented to person, place, time, situation, Reports weakness. Cardiovascular: Capillary refill < 3 seconds in bilateral fingers Patient's skin is warm and dry. Respiratory: Reports shortness of breath on exertion Airway is patent Respiratory effort is even, unlabored, Respiratory pattern is regular, symmetrical. GI: Patient currently denies bloody stool, rectal bleeding. Derm: Skin is fragile, is thin, Skin is pink, warm \T\ dry. Musculoskeletal: Circulation, motion, and sensation intact. Range of motion: intact in all extremities. 15:00 Reassessment: Patient appears in no apparent distress at this time. Patient and/or ph family updated on plan of care and expected duration. Pain level reassessed. Patient is alert, oriented x 3, equal unlabored respirations, skin warm/dry/pink. Awaiting PRBCs from blood bank, pt resting quietly. 18:16 Reassessment: Patient appears in no apparent distress at this time. Patient and/or ph family updated on plan of care and expected duration. Pain level reassessed. Patient is alert, oriented x 3, equal unlabored respirations, skin warm/dry/pink. Pt d/c home w/ family, will follow up w/ Dr Walter. Vital Signs: 11:31 BP 167 / 89; Pulse 59; Resp 16; Temp 98.3; Pulse Ox 99% on R/A; iw 14:00 BP 171 / 86; Pulse 72; Resp 18; Pulse Ox 98% on R/A; ph 15:00 BP 169 / 78; Pulse 68; Resp 16; Pulse Ox 99% on R/A; ph 16:00 BP 162 / 55; Pulse 76; Resp 18; Temp 97.7; Pulse Ox 100% on R/A; ph 17:00 BP 158 / 58; Pulse 63; Resp 18; Temp 97.8; Pulse Ox 99% ; ph ED Course: 11:04 Patient arrived in ED. am2 11:04 Carlyle Walter MD is Private Physician. am2 11:09 Thom Whitehead DO is Attending Physician. ms3 11:32 Triage completed. iw 11:33 Arm band placed on. iw 13:25 Rhea Leiva, RN is Primary Nurse. ph 14:54 Patient has correct armband on for positive identification. Bed in low position. Call ph light in reach. Side rails up X 1. traveling phlebotomist on. Pulse ox on. NIBP on. Door closed. Noise minimized. Warm blanket given. Pillow given. Head of bed elevated. 17:00 Inserted 22 G IV to LAC inserted by ED staff. ph 17:48 Carlyle Walter MD is Referral Physician. ms3 18:17 No provider procedures requiring assistance completed. IV discontinued, intact, ph bleeding controlled, No redness/swelling at site. Pressure dressing applied. Administered Medications: No medications were administered Medication: 14:55 VIS not applicable for this client. ph 16:10 Blood products: PRBCs X 1 unit given. ph Outcome: 17:49 Discharge ordered by MD. ms3 18:17 Discharged to home via wheelchair, with family. ph 18:17 Condition: good 18:17 Discharge instructions given to patient, Instructed on discharge instructions, follow up and referral plans. Demonstrated understanding of instructions, follow-up care. 18:22 Patient left the ED. ph Signatures: Clari Rob RN RN Rhea Leiva, RN RN Keiry Hand am2 Tohm Whitehead DO DO ms3 Corrections: (The following items were deleted from the chart) 11:19 11:18 The history from the nurse's notes was reviewed and I agree with what is ms3 documented. ms3 12:17 11:31 Pulse 59bpm; Resp 16bpm; Pulse Ox 99% RA; Temp 98.3F; iw iw
[2022-04-26 19:26] VITALS: BP 158/58; TEMP 97.8; O2SAT 99
== END 2022-04-26 18:22 | disposition home or self-care (01) ==
LOC: ER 11:01
PROC: 30233N1 Transfusion of Nonautologous Red Blood Cells into Peripheral Vein, Percutaneous Approach (ICD-10-PCS; principal; 2022-04-26)
DX: D64.9 Anemia, unspecified (principal); I10 Essential (primary) hypertension; E03.9 Hypothyroidism, unspecified; Z88.8 Allergy status to other drugs, medicaments and biological substances; Z95.2 Presence of prosthetic heart valve
CPT/HCPCS: 85025; 80048; 36415; 86900; 86850; 86902; 86901; 86922; 36430 ×2; 99285; P9016; J7050

== ENCOUNTER 2023-12-11 10:10 | Emergency (ER) | payer OTHER ==
--- OUTSIDE RECORDS SUMMARY | 2023-12-11 10:13 | XMS REPORT | Continuity of Care Document ---
Author Name Unknown Address [address] [facility] [address] [place] [address] [facility] thconnect Address [address] [facility] [address] [place] [address] Care Team Providers Care Secretarial Stenographer Name Role Phone Chela Blackwell Attending Clinician Marquez Burnham Attending Clinician Unavailable Chela Blackwell Admitting Clinician Carlyle Guerra Admitting Clinician Unavailable Payers Payer Name Policy Type Policy Number Effective Date Expirati on Date Source Allergies, Adverse Reactions, Alerts Allergy Name Allergy Type Status Severity Reaction(s) Onset Date Inactive Date Treating Clinician Comments Source hydromor phone DA Active SV ITCHING 10-12 00:00: 00 [facility] Iodinate d Contrast Media DA Active AK HIVES 1 00:00: 00 [facility] Procedures Procedure Date / Time Performed Performing Clinicia n Source [id number] 2021-10-17 00:00:00 [facility]AA[facility].01 [facility] [id number] 2021-10-17 00:00:00 [facility]01 [facility] [id number] 2021-10-17 00:00:00 [facility]AA[facility]01 [facility] Encounters Start Date/Time End Date/Time Encounter Type Admission Type Attending Clinicians Care Facility Care Department Encounter ID Source 2021-10-17 05:22:2021-10-19 12:47:00 Inpatient [facility] [id number] [facility] 2021-10-12 09:00:00 2021-10-12 23:00:00 Outpatient [facility] 3DAY [id number] [facility] 2021-09-11 08:58:00 2021-09-11 08:58:00 Outpatient Marquez Hern[facility]dez [facility] [id number] [facility] Results Test Description Test Time Test Comments Results Result Co mments Source [id number] 04:12:00* Test Item Value Reference Range Interpretation Comme nts PHOSPHOROUS (test code = PHOS) 2.9 MG/DL 2.5-4.9 N [id number] 04:12:00* Test Item Value Reference Range Interpretation Comme nts MAGNESIUM (test code = MAG) 2.19 mg/dL 1.80-2.40 N CALCIUM [id number] 04:12:00* Test Item Value Reference Range Interpretation Comme nts CALCIUM IONIZED (test code = DORA) 1.17 MMOL/L 1.12-1.32 N CBC W/AUTO [id number] 04:07:00* Test Item Value Reference Range Interpretation Comme nts WHITE BLOOD CELL (test code = WBC) 9.2 x10 3/uL 4.5-11.0 N RED BLOOD CELL (test code = RBC) 3.92 x10 6/uL 3.54-5.02 N HEMOGLOBIN (test code = HGB) 9.7 g/dL 11.0-15.0 L HEMATOCRIT (test code = HCT) 31.4 % 33.0-45.0 L MEAN CELL VOLUME (test code = MCV) 80.1 fL 81.0-99.0 L MEAN CELL HGB (test code = MCH) 24.7 pg 27.0-33.0 L MEAN CELL HGB CONCETRATION (test code = MCHC) 30.9 g/dL 33.0-37.0 L RED CELL DISTRIBUTION WIDTH CV (test code = RDW) 17.7 % 11.5-14.5 H RED CELL DISTRIBUTION WIDTH SD (test code = RDW-SD) 51.0 fL 37.0-54.0 N PLATELET COUNT (test code = PLT) 150 x10 3/uL 150-400 N MEAN PLATELET VOLUME (test c ode = MPV) 10.4 fL 7.0-9.0 H NEUTROPHIL % (test code = NT%) 70.9 % 56.0-77.0 N IMMATURE GRANULOCYTE % (test code = IG%) 0.5 % 0.0-2.0 N LYMPHOCYTE % (test code = LY%) 17.0 % 14.0-32.0 N MONOCYTE % (test code = MO%) 11.4 % 4.8-9.0 H EOSINOPHIL % (test code = EO%) 0.0 % 0.3-3.7 L BASOPHIL % (test code = BA%) 0.2 % 0.0-2.0 N NUCLEATED RBC % (test code = NRBC%) 0.0 % 0-0 N NEUTROPHIL # (test code = NT#) 6.49 x10 3/uL 2.0-7.6 N IMMATURE GRANULOCYTE # (test code = IG#) 0.05 x10 3/uL 0.00-0.03 H LYMPHOCYTE # (test code = LY#) 1.56 x10 3/uL 1.0-3.8 N MONOCYTE # (test code = MO#) 1.04 x10 3/uL 0.1-0.8 H EOSINOPHIL # (test code = EO#) 0.00 x10 3/uL 0.0-0.2 N BASOPHIL # (test code = BA#) 0.02 x10 3/uL 0.0-0.2 N NUCLEATED RBC # (test code = NRBC#) 0.00 x10 3/uL 0.0-0.1 N MANUAL DIFF REQUIRED (test c ode = MDIFF) NO BASIC METABOLIC [id number] 22:25:00* Test Item Value Reference Range Interpretation Comme nts SODIUM (test code = NA) 141 mEq/L 134-147 N POTASSIUM (test code = K) 5.2 mEq/L 3.4-5.0 H CHLORIDE (test code = CL) 110 mEq/L 100-108 H CARBON DIOXIDE (test code = CO2) 21 mEq/l 21-33 N ANION GAP (test code = GAP) 15 0-20 N GLUCOSE (test code = GLU) 122 mg/dL 70-110 H BLOOD UREA NITROGEN (test code = BUN) 11 mg/dL 7-18 GLOMERULAR FILTRATION RATE (test code = GFR) 59.2 70-80 L Units of measure = ml/min/1.73 m2 CREATININE (test code = CREAT) 0.9 mg/dL 0.6-1.3 N CALCIUM (test code = CA) 8.5 mg/dL 8.0-10.5 N [id number] 22:25:00* Test Item Value Reference Range Interpretation Comme nts MAGNESIUM (test code = MAG) 2.09 mg/dL 1.80-2.40 BASIC METABOLIC [id number] 17:39:00* Test Item Value Reference Range Interpretation Comme nts SODIUM (test code = NA) 143 mEq/L 134-147 N POTASSIUM (test code = K) 3.3 mEq/L 3.4-5.0 L CHLORIDE (test code = CL) 108 mEq/L 100-108 N CARBON DIOXIDE (test code = CO2) 23 mEq/l 21-33 N ANION GAP (test code = GAP) 15 0-20 N GLUCOSE (test code = GLU) 116 mg/dL 70-110 H BLOOD UREA NITROGEN (test code = BUN) 17 mg/dL 7-18 N GLOMERULAR FILTRATION RATE (test code = GFR) 59.2 70-80 L Units of measure = ml/min/1.73 m2 CREATININE (test code = CREAT) 0.9 mg/dL 0.6-1.3 N CALCIUM (test code = CA) 8.9 mg/dL 8.0-10.5 N [id number] 17:39:00* Test Item Value Reference Range Interpretation Comme nts PHOSPHOROUS (test code = PHOS) 2.5 MG/DL 2.5-4.9 N [id number] 17:39:00* Test Item Value Reference Range Interpretation Comme nts MAGNESIUM (test code = MAG) 1.81 mg/dL 1.80-2.40 N CALCIUM [id number] 17:39:00* Test Item Value Reference Range Interpretation Comme nts CALCIUM IONIZED (test code = DORA) 1.16 MMOL/L 1.12-1.32 N UA RFLX MICR CULT IF [id number] 15:38:00* Test Item Value Reference Range Interpretation Comme nts UA COLOR (test code = COLU) STRAW YEL/STRAW UA APPEARANCE (test code = APPU) CLEAR CLEAR UA GLUCOSE DIPSTICK (test co de = DGLUU) NEGATIVE NEGATIVE UA BILIRUBIN DIPSTICK (test code = BILU) NEGATIVE NEGATIVE UA KETONE DIPSTICK (test cod e = KETU) NEGATIVE NEGATIVE UA SPECIFIC GRAVITY (test co de = SGU) 1.015 1.005-1.030 N UA BLOOD DIPSTICK (test code = ED) NEGATIVE NEGATIVE UA PH DIPSTICK (test code = CRYSTAL) 5.0 5.0-7.0 N UA PROTEIN DIPSTICK (test co de = PROU) NEGATIVE NEGATIVE UA UROBILINIOGEN DIPSTICK (t est code = URO) 0.2 mg/dL 0.2-1.0 UA NITRITE DIPSTICK (test co de = CANDACE) NEGATIVE NEGATIVE UA LEUKOCYTE ESTERASE DIPSTI CK (test code = LEUU) NEGATIVE NEGATIVE UA WBC (test code = WBCU) 0-3 WBC/HPF 0-3 UA RBC (test code = RBCU) 0-3 RBC/HPF 0-3 UA WBC NO REFLEX (test code = WBCUCL) 0-3 WBC/HPF 0-3 UA BACTERIA (test code = BACU) TRACE /HPF NONE SEEN UA SQUAMOUS CELLS (test code = SQU) 0-5 /HPF NONE SEEN UA MUCUS (test code = MUCU) TRACE /LPF NONE SEEN Indication for culture: Dysuria/FrequencySpecimen Description: CLEAN CATCH COMPREHENSIVE METABOLIC [id number] 04:24:00* Test Item Value Reference Range Interpretation Comme nts SODIUM (test code = NA) 144 mEq/L 134-147 N POTASSIUM (test code = K) 3.9 mEq/L 3.4-5.0 N CHLORIDE (test code = CL) 113 mEq/L 100-108 H CARBON DIOXIDE (test code = CO2) 21 mEq/l 21-33 N ANION GAP (test code = GAP) 14 0-20 N GLUCOSE (test code = GLU) 102 mg/dL 70-110 N BLOOD UREA NITROGEN (test code = BUN) 20 mg/dL 7-18 H GLOMERULAR FILTRATION RATE (test code = GFR) 59.2 70-80 L Units of measure = ml/min/1.73 m2 CREATININE (test code = CREAT) 0.9 mg/dL 0.6-1.3 N TOTAL PROTEIN (test code = PROT) 5.9 g/dL 6.4-8.2 L ALBUMIN (test code = ALB) 2.90 g/dL 3.4-5.0 L CALCIUM (test code = CA) 8.2 mg/dL 8.0-10.5 N BILIRUBIN TOTAL (test code = BILT) 0.30 mg/dL 0.0-1.0 N SGOT/AST (test code = AST) 30 IUnit/L 15-37 N SGPT/ALT (test code = ALT) 9 IUnit/L 30-65 L ALKALINE PHOSPHATASE TOTAL (test code = ALKP) 71 IUnit/L 20-125 N [id number] 04:24:00* Test Item Value Reference Range Interpretation Comme nts MAGNESIUM (test code = MAG) 1.70 mg/dL 1.80-2.40 L CBC W/AUTO [id number] 04:07:00* Test Item Value Reference Range Interpretation Comme nts WHITE BLOOD CELL (test code = WBC) 7.5 x10 3/uL 4.5-11.0 RED BLOOD CELL (test code = RBC) 3.14 x10 6/uL 3.54-5.02 L HEMOGLOBIN (test code = HGB) 8.0 g/dL 11.0-15.0 L HEMATOCRIT (test code = HCT) 25.5 % 33.0-45.0 L MEAN CELL VOLUME (test code = MCV) 81.2 fL 81.0-99.0 N MEAN CELL HGB (test code = MCH) 25.5 pg 27.0-33.0 L MEAN CELL HGB CONCETRATION (test code = MCHC) 31.4 g/dL 33.0-37.0 L RED CELL DISTRIBUTION WIDTH CV (test code = RDW) 17.3 % 11.5-14.5 H RED CELL DISTRIBUTION WIDTH SD (test code = RDW-SD) 50.8 fL 37.0-54.0 N PLATELET COUNT (test code = PLT) 147 x10 3/uL 150-400 L MEAN PLATELET VOLUME (test c ode = MPV) 10.7 fL 7.0-9.0 H NEUTROPHIL % (test code = NT%) 74.5 % 56.0-77.0 N IMMATURE GRANULOCYTE % (test code = IG%) 0.3 % 0.0-2.0 N LYMPHOCYTE % (test code = LY%) 16.6 % 14.0-32.0 N MONOCYTE % (test code = MO%) 8.5 % 4.8-9.0 N EOSINOPHIL % (test code = EO%) 0.0 % 0.3-3.7 L BASOPHIL % (test code = BA%) 0.1 % 0.0-2.0 N NUCLEATED RBC % (test code = NRBC%) 0.3 % 0-0 H NEUTROPHIL # (test code = NT#) 5.55 x10 3/uL 2.0-7.6 N IMMATURE GRANULOCYTE # (test code = IG#) 0.02 x10 3/uL 0.00-0.03 N LYMPHOCYTE # (test code = LY#) 1.24 x10 3/uL 1.0-3.8 N MONOCYTE # (test code = MO#) 0.63 x10 3/uL 0.1-0.8 N EOSINOPHIL # (test code = EO#) 0.00 x10 3/uL 0.0-0.2 N BASOPHIL # (test code = BA#) 0.01 x10 3/uL 0.0-0.2 N NUCLEATED RBC # (test code = NRBC#) 0.02 x10 3/uL 0.0-0.1 N MANUAL DIFF REQUIRED (test c ode = MDIFF) NO HGB [id number] 22:51:00* Test Item Value Reference Range Interpretation Comme nts HEMOGLOBIN (test code = HGB) 8.1 g/dL 11.0-15.0 L HEMATOCRIT (test code = HCT) 26.3 % 33.0-45.0 L HGB [id number] 19:30:00* Test Item Value Reference Range Interpretation Comme nts HEMOGLOBIN (test code = HGB) 8.2 g/dL 11.0-15.0 L HEMATOCRIT (test code = HCT) 27.0 % 33.0-45.0 L BASIC METABOLIC [id number] 16:49:00* Test Item Value Reference Range Interpretation Comme nts SODIUM (test code = NA/ABG) 144 MEQ/L 134-147 N POTASSIUM (test code = K/ABG) 4.0 MEQ/L 3.4-5.0 N CHLORIDE (test code = CL/ABG) 111 MEQ/L 100-108 H CREATININE ABG (test code = CREAABG) 1.2 mg/dL 0.6-1.0 H POC IONIZED CALCIUM (test co de = POCCA) 1.24 MMOL/L 1.12-1.32 N POC GLUCOSE (test code = POCGLU) 136 MG/DL HEMOGLOBIN [id number] 16:49:00* Test Item Value Reference Range Interpretation Comme [facility] HEMOGLOBIN ABG (test code = HGB/ABG) 9.1 G/DL 11.0-15.0 L [id number] 16:49:00* Test Item Value Reference Range Interpretation Comme [facility] HEMATOCRIT (test code = HCT/ABG) 27 % 33.0-45.0 L POC LACTIC [id number] 16:49:00* Test Item Value Reference Range Interpretation Comme [facility] POC LACTIC ACID (test code = POCLAC) 0.9 mmol/l 0.9-1.7 N POC VENOUS BLOOD [id number] 16:49:00* Test Item Value Reference Range Interpretation Comme [facility] POC VENOUS BLOOD GAS PH (dennis t code = POCPHV) 7.308 7.33-7.45 L POC VENOUS BLOOD GAS PCO2 (t est code = ZUYKCI2X) 43.6 mmHg 43-47 N POC VENOUS BLOOD GAS PO2 (te st code = KTDLP5J) 49.9 mmHG 10-50 N POC TCO2 VENOUS (test code = IZPYLH5D) 23.2 POC HCO3 VENOUS (test code = RYKRPR8X) 21.9 MMOL/L 22-27 L POC BASE EXCESS VENOUS (test code = POCBEV) -4.2 MMOL/L -4.0-4.0 L POC O2 SATURATION VENOUS (te st code = ZYDO6BW) 81.2 % 60-80 H [id number] 16:49:00* Test Item Value Reference Range Interpretation Comme [facility] ACT-ISTAT (test code = ACTI) 315 SEC 74-137 H Performed by cer tified quill picking machine operator at [facility] Novel Coronavirus 2019 [id number] 05:13:00* Test Item Value Reference Range Interpretation Comme nts Novel Coronavirus 2019 Inhouse (test code = COVNONPUI) Negative Negative Positive resul ts are indicative of the presence nzTMPB-NrT-4 RNA, clinical correlation with patient historyand other diagnostic information is necessary to determinepatient infection status. Positive results do not rule outbacterial infection or co-infection with other viruses. Negative results do not preclude SARS-CoV-2 infection andshould not be used as the sole basis for patient managementdecisions. Negative results must be combined with otherclinical observations, patient history, and epidemiologicalinformation . Detection of SARS-CoV-2 RNA may be affected bysample collection methods, storage conditions, and/or stageof infection. Viral RNA mutations, vaccinations, antiviraltherapeutics, antibiotics, chemotherapeutic orimmunosuppressant drugs have not been evaluated for effectson detection. Results are for the identification of SARS-CoV-2 RNA usingreal-time (RT) polymerase chain reaction (PCR) technologyfor the qualitative detection of nucleic acids from tnrEAYC-LpR-7 virus and diagnosis of SARS-CoV-2 virusinfection. It is an Emergency Use Authorization (EUA) testauthorized by the U.S. FDA. B-TYPE NATRIURETIC [id number] 14:23:00* Test Item Value Reference Range Interpretation Comme nts B-TYPE NATRIURETIC PEPTIDE ( test code = BNP) 103.0 PG/ML 0-100 H BASIC METABOLIC [id number] 14:20:00* Test Item Value Reference Range Interpretation Comme nts SODIUM (test code = NA) 144 mEq/L 134-147 N POTASSIUM (test code = K) 4.2 mEq/L 3.4-5.0 N CHLORIDE (test code = CL) 108 mEq/L 100-108 N CARBON DIOXIDE (test code = CO2) 27 mEq/l 21-33 N ANION GAP (test code = GAP) 14 0-20 N GLUCOSE (test code = GLU) 100 mg/dL 70-110 N BLOOD UREA NITROGEN (test code = BUN) 17 mg/dL 7-18 N GLOMERULAR FILTRATION RATE (test code = GFR) 42.5 70-80 L Units of measure = ml/min/1.73 m2 CREATININE (test code = CREAT) 1.2 mg/dL 0.6-1.3 N CALCIUM (test code = CA) 9.1 mg/dL 8.0-10.5 N [id number] 14:20:00* Test Item Value Reference Range Interpretation Comme nts ALBUMIN (test code = ALB) 3.60 g/dL 3.4-5.0 N PROTHROMBIN [id number] 14:10:00* Test Item Value Reference Range Interpretation Comme nts PROTHROMBIN TIME PATIENT (test code = PTP) 13.4 SECONDS 9.3-12.9 H INTERNATIONAL NORMAL RATIO (test code = INR) 1.2 0.8-1.2 N TARGET INR BY INDICATION Indication INR1. Prophylaxis of venous thrombosis 2.0 - 3.0 (orthopedic surgery), Prophylaxis of venous thrombosis (other than high-risk surgery), Treatment of Deep Vein Thrombosis/Pulmonary Embolism, Prevention of systemic embolism - Tissue heart valves, Acute Myocardial Infarction (to prevent systemic embolism), Valvular heart disease, Atrial Fibrillation, Bileaflet mechanical valve in aortic position.2. Mechanical prosthetic valves (high risk), 2.5 - 3.5 Presence of Lupus Anticoagulant or Antiphospholipid Antibodies, Prevention of systemic embolism - Acute Myocardial Infarction (to prevent recurrent infarct). CBC W/AUTO [id number] 14:06:00* Test Item Value Reference Range Interpretation Comme nts WHITE BLOOD CELL (test code = WBC) 5.3 x10 3/uL 4.5-11.0 N RED BLOOD CELL (test code = RBC) 3.81 x10 6/uL 3.54-5.02 N HEMOGLOBIN (test code = HGB) 9.6 g/dL 11.0-15.0 L HEMATOCRIT (test code = HCT) 32.0 % 33.0-45.0 L MEAN CELL VOLUME (test code = MCV) 84.0 fL 81.0-99.0 N MEAN CELL HGB (test code = MCH) 25.2 pg 27.0-33.0 L MEAN CELL HGB CONCETRATION (test code = MCHC) 30.0 g/dL 33.0-37.0 L RED CELL DISTRIBUTION WIDTH CV (test code = RDW) 17.3 % 11.5-14.5 H RED CELL DISTRIBUTION WIDTH SD (test code = RDW-SD) 53.0 fL 37.0-54.0 N PLATELET COUNT (test code = PLT) 172 x10 3/uL 150-400 N MEAN PLATELET VOLUME (test c ode = MPV) 10.8 fL 7.0-9.0 H NEUTROPHIL % (test code = NT%) 59.6 % 56.0-77.0 N IMMATURE GRANULOCYTE % (test code = IG%) 0.4 % 0.0-2.0 N LYMPHOCYTE % (test code = LY%) 28.5 % 14.0-32.0 N MONOCYTE % (test code = MO%) 8.1 % 4.8-9.0 N EOSINOPHIL % (test code = EO%) 2.8 % 0.3-3.7 N BASOPHIL % (test code = BA%) 0.6 % 0.0-2.0 N NUCLEATED RBC % (test code = NRBC%) 0.0 % 0-0 N NEUTROPHIL # (test code = NT#) 3.16 x10 3/uL 2.0-7.6 N IMMATURE GRANULOCYTE # (test code = IG#) 0.02 x10 3/uL 0.00-0.03 N LYMPHOCYTE # (test code = LY#) 1.51 x10 3/uL 1.0-3.8 N MONOCYTE # (test code = MO#) 0.43 x10 3/uL 0.1-0.8 N EOSINOPHIL # (test code = EO#) 0.15 x10 3/uL 0.0-0.2 N BASOPHIL # (test code = BA#) 0.03 x10 3/uL 0.0-0.2 N NUCLEATED RBC # (test code = NRBC#) 0.00 x10 3/uL 0.0-0.1 N MANUAL DIFF REQUIRED (test c ode = MDIFF) NO - XR CHEST 2 [id number] 00:00:00 [facility] : 1935 Sex: F FAX: Carlyle Mandujano MD [phone] [place]: St: PRE FAX: Camryn Padilla MD [phone] Name: MALU LAIRD [facility] [place] : 1935 Age/S: 86/F [address] [place] [address] Unit #: [id number] Loc: [place] [address] Phys: Camryn Gavin MD Acct: [id number] Dis Date: Status: PRE IN PHONE #: [phone] ExamDate: 10/12/2021 1504 FAX #: [phone] Reason: PREOP EXAMS: CPT CODE: [id number] XR CHEST 2 V 69652 PROCEDURE INFORMATION: Exam: XR Chest Exam date and time: 10/12/2021 2:48 PM Age: 86 years old Clinical indication: Pre-operative exam; Respiratory screening exam; Additional info: Preop TECHNIQUE:Imaging protocol: XR of the chest. Views: 2 views. PA and Lateral COMPARISON: CT HEART W CN ART/GRAFTS 09/11/2021 10:19 AM FINDINGS: Lungs: The lungs are clear. Pleural spaces: No pleural effusion. Nopneumothorax. Heart/Mediastinum: Cardiac silhouette is normal. Retrocardiac opacity corresponding to hiatal hernia containing portion of the proximal stomach. The mediastinal contours are otherwise normal. Calcified plaque thoracic aorta. Coronary arterial calcifications and or metallic stents. The pulmonary vasculature is normal. Bones/joints: There is no acute skeletal abnormality. IMPRESSION:1. No acute findings. 2. Coronary arterial calcifications and or stents. 3. Hiatal hernia. at 1706 Reported and signed by: Donovan Clemons M.D. CC: Carlyle Walter MD; Camryn Gavin MD Technologist: RT Ravin(R) Trnscrd Date/Time/By: 10/12/2021 (1705) : By: ErnieKWL Orig Print D/T: S: 10/12/2021 (9868) PAGE 1 Signed Report COVID 19 Asymptomatic IH [id number] 11:39:00* Test Item Value Reference Range Interpretation Comme nts COVID 19 Asymptomatic IH AG (test code = COVNONPUIAG) Negative Negative A negative resul t is presumptive and should be confirmedwith an FDA authorized molecular assay, if necessary forpatient management.A positive result does not rule out co-infections withother pathogens.This test detects both viable (live) and non-viable,SARS-CoV, and SARS-CoV-2. Test performance depends on theamount of virus (antigen) in the sample.This test has not been FDA cleared or approved; the test hasbeen authorized by FDA under an Emergency Use Authorization(EUA) for use by laboratories certified under the CLIA thatmeet the requirements to perform moderate, high or waivedcomplexity tests. CREATININE W ESTIMATED [id number] 11:29:00* Test Item Value Reference Range Interpretation Comme nts BEDSIDE CREATININE (test code = CREATBED) 1.5 MG/DL 0.6-1.3 H Performed by certified quill picking machine operator at [facility] GLOMERULAR FILTRATION RATE POC (test code = GFRBED) 35 ML/MIN Performed by certified quill picking machine operator at [facility] - CT ANGIO [id number] 00:00:00 [facility] : 1935 Sex: F Name:MALU LAIRD [facility] [place] : 1935 Age/S: 86 / F [address] [place] [address] Unit #: [id number]: [place] [address] Phys: Marquez Bey MD Acct: [id number] Dis Date: Status: REG CLI PHONE #: [phone] Exam Date: 09/11/2021 1041 FAX #: [phone] Reason: TAVR EXAMS: CPT CODE: [id number] CT ANGIO CHEST [address]182 PROCEDURE INFORMATION: Exam: CTA Chest With Contrast [...] patient size (includes targeted exams where dose ismatched to clinical indication); or iterative reconstruction. Contrast [...] PAGE 1 Signed Report (CONTINUED) Name: MALU LAIRD : 1935 Age/S: 86 / F [address] [place] [address] Blvd Unit #: [id number] Loc: [place] [address] Phys: Marquez Bey MD Acct: [id number] Dis Date: Status: REG CLI PHONE #: [phone] Exam Date: 09/11/2021 1041 FAX #: [phone] Reason: TAVR EXAMS: CPT CODE: [id number] CT ANGIO CHEST [address]132 (Continued) PROCEDURE INFORMATION: Exam: CTA Heart and [...] created by the technologist. Acquisition mode: A p rospective trigger or retrospective gating technique was used [...] arteries: 2.8 cm PAGE 2 Signed Report (CONTINUED)Name: MALU LAIRD : 1935 Age/S: 86 / F [address] [place] [address] Blvd Unit #: [id number] Loc: [place] [address] Phys: Marquez Bey MD Acct: [id number] Dis Date: Status: REG CLI PHONE #: [phone] Exam Date: 09/11/2021 1041 FAX #: [phone] Reason: TAVR EXAMS: CPT CODE: [id number] CT ANGIO CHEST [address]4784 (Continued) IMPRESSION: Aortic root measurements as above. [...] common iliac artery: 1.2 cm Right common femoralartery: 0.9 cm Left common femoral artery: 1 [...] PAGE 3 Signed Report (CONTINUED) Name: MALU LAIRD : 1935 Age/S: 86 / F [address] [place] [address] Blvd Unit #: [id number] Loc: [place] [address] Phys: Marquez Bey MD Acct: [id number] Dis Date: Status: REG CLI PHONE #: [phone] Exam Date: 09/11/2021 1041 FAX #: [phone] Reason: TAVR EXAMS: CPT CODE: [id number] CT ANGIO CHEST [address]9572 (Continued) Pancreas: No ductal dilation. 2 cm cystic lesion is seen involving the pancreatic neck. Spleen: Unremarkable. Adrenal glands: Unremarkable. [place]. Kidneys and ureters: Small simple cyst in the right kidney upper pole. Exophytic 3.8 cm simple cyst in the left kidney upper pole. Mild scarring is seen in the left kidney upper pole. No hydronephrosis. Stomach and bowel: No obstruction. Appendix: No evidence of appendicitis. Intraperitoneal space: No free air. No significant fluid collection. Lymph nodes: No enlarged lymph nodes. Urinary bl adder: Bladder is not well distended limiting its [...] (1619) [email or web address] Orig Print D/T: S: 09/11/2021 (0270) PAGE 4 Signed Report- CTA HEART W CN ART/GRAFTS 2021-09-11 00:00:00 [facility] JOHNNIEName: MALU LAIRD : 1935 Sex: F Name:MALU LAIRD [facility] Terry Granado : 1935 Age/S: 86 / F [address] [place] [address] Unit #: [id number]: [id number] Colbert [id number] Phys: Marquez Bey MD Acct: [id number] Dis Date: Status: REG CLI PHONE #: [phone] Exam Date: 09/11/2021 1041 FAX #: [phone] Reason: EXAMS: CPT CODE: [id number] CTA HEART W CN ART/GRAFTS 36041 PROCEDURE INFORMATION: Exam: CTA Chest With Contrast [...] adjustment per patient size (includes targeted exams wheredose is matched to clinical indication); or iterative reconstruction. Contrast material: ISOVUE 370; Contrast volume: 100 ml; Contrast route: INTRAVENOUS (IV); CT Radiation Dose: DLP = 2472.8 mGy-cm C OMPARISON: No relevant prior studies available. FINDINGS: Pulmonary arteries: Ectatic pulmonary arteries. Aorta: Moderate to severe aortic root calcification is seen. Minimal to mild thoracic aortic scattered calcifications is seen. Lungs: No consolidation. No masses. 4 mm noncalcified nodule in the right posterior lung base on image 120 of series 4. Pleural spaces: Unremarkable. No pneumothorax.No pleural effusion. Heart: Heart is borderline in [...] of malignancy) an optional chest CT at 12months could be performed. PAGE 1 Signed Report (CONTINUED) Name: MALU LAIRD [facility] [place] : 1935 Age/S: 86 / F [address] [place] [address] Unit #: [id number] Loc: [place] [address] Phys: Marquez Chicas MD Acct: [id number] Dis Date: Status: REG CLI PHONE #: [phone] Exam Date: 09/11/2021 1041 FAX #: [phone] Reason: EXAMS: CPT CODE: [id number] CTA HEART W CN ART/GRAFTS 14240 (Continued) PROCEDURE INFORMATION: Exam: CTA Heart and [...] PAGE 2 Signed Report (CONTINUED) Name: MALU LAIRD [facility] : 1935 Age/S: 86 / F [address] [place] [address] Blvd Unit #: [id number] Loc: [place] [address] Phys: Marquez Bey MD Acct: [id number] Dis Date: Status: REG CLI PHONE #: [phone] Exam Date: 09/11/2021 1041 FAX #: [phone] Reason: EXAMS: CPT CODE: [id number] CTA HEART W CN ART/GRAFTS 16104 (Continued) IMPRESSION: Aortic root measurements as above. PROCEDURE INFORMATION: Exam: CTA Abdomen and Pelvis With ContrastExam date and time: 09/11/2021 10:19 AM Age: 86 years old Clinical indication: Other: Aortic stenosis TECHNIQUE: Imaging protocol: Computed tomographic angiography of the abdomen and pelvis with contr ast material. 3D rendering (Not supervised by radiologist): MIP and/or 3D reconstructed images werecreated by the technologist. Radiation optimization: All CT scans at this facility use at least oneof these dose optimization techniques: automated exposure control; mA and/or kV adjustment per patient size (includes targeted exams where dose is matched to clinical indication); or iterative reconstruction. Contrast material: ISOVUE 370; Contrast volume: 100 ml; Contrast route: INTRAVENOUS (IV);COMPARISON: No relevant prior studies available. FINDINGS: Estimated aortoiliac/iliofemoral arterial diameters are as follows: Abdominal aorta just below the renal arteries: 2.1 cm Distal abdominal aorta at iliac bifurcation: 1.7 cm Right common iliac artery: 1.3 cm Left common iliac artery: 1.2 cmRight common femoral artery: 0.9 cm Left common [...] PAGE 3 Signed Report (CONTINUED) Name: MALU LAIRD [facility] : 1935 Age/S: 86 /F [address] [place] [address] Blvd Unit #: [id number] Loc: [place] [address] Phys: Marquez Bey MD Acct: [id number] Dis Date: Status: REG CLI PHONE #: [phone] Exam Date: 09/11/2021 1041 FAX #: [phone] Reason: EXAMS: CPT CODE: [id number] CTA HEART W CN ART/GRAFTS 61609 (Continued) Pancreas: No ductal dilation. 2 cm cystic lesion is seen involving the pancreatic neck. Spleen: Unremarkable. Adrenal glands: Unremarkable. No mass. Kidneys and ureters: Small simple cyst in the right kidney upperpole. Exophytic 3.8 cm simple cyst in the left kidney upper pole. Mild scarring is seen in the leftkidney upper pole. No hydronephrosis. Stomach and bowel: [...] evaluation with nonemergent MRI abdomen with and w ithout contrast is recommended. Moderate-sized hiatal hernia. at 1620 Reported and signed by: Adam Love D.O. CC: Carlyle Bueno MD; Marquez Bey MD Technologist:RT Becki(R)(CT) CTDI: DLP: Trnscb Date/Time: 09/11/2021 (1619) t.SDR.MP37 Orig Print D/T: S: 09/11/2021 (1619) PAGE 4 Signed Report- CTA ABD PEL W [id number] 00:00:00 [facility] : 1935 Sex: F Name:MALU LAIRD [facility] : 1935 Age/S: 86 / F [address] [place] [address] Unit #: [id number] Loc: [place] [address] Phys: Marquez Bey MD Acct: [id number] Dis Date: Status: REG CLI PHONE #: [phone] Exam Date: 09/11/2021 1041 FAX #: [phone] Reason: TAVR EXAMS: CPT CODE: [id number] CTA ABD PEL W CONT 85669 PROCEDURE INFORMATION: Exam: CTA Chest With Contrast [...] CT Radiation Dose: DLP = 2472.8 mGy-cm CO MPARISON: No relevant prior studies available. FINDINGS: Pulmonary arteries: Ectatic pulmonary arteries. Aorta: Moderate to severe aortic root calcification is seen. Minimal to mild thoracic aortic scattered calcifications is seen. Lungs: No consolidation. No masses. 4 mm noncalcified nodule in theright posterior lung base on image 120 of [...] right lung base. 2017 Fleischner criteria guidelines suggestthe following. For low-risk patients, no follow-up is necessary. For high-risk patients (smoking history or other known risk factors to increase their risk of malignancy) an optional chest CT at 12 months could be performed. PAGE 1 Signed Report (CONTINUED) Name: MALU LAIRD [facility] [place] : 1935 Age/S: 86 / F [address] [place] [address] Unit #: [id number] Loc: [place] [address] Phys: Marquez Bey MD Acct: [id number] Dis Date: Status: REG CLI PHONE #: [phone] Exam Date: 09/11/2021 1041 FAX #: [phone] Reason: TAVR EXAMS: CPT CODE: [id number] CTA ABD PEL W CONT 79178 (Continued) PROCEDURE INFORMATION: Exam: CTA Heart and [...] reconstructed images were created by the technologist. Acquisitionmode: A prospective trigger or retrospective gating technique [...] PAGE 2 Signed Report (CONTINUED) Name: MALU LAIRD : 1935 Age/S: 86 / F [address] [place] [address] Unit #: [id number] Loc: [place] [address] Phys: Marquez Bey MD Acct: [id number] Dis Date: Status: REGCLI PHONE #: [phone] Exam Date: 09/11/2021 1041 FAX #: [phone] Reason: TAVR EXAMS: CPT CODE: [id number] CTA ABD PEL W CONT 97819 (Continued) IMPRESSION: Aortic root measurements as above. [...] this facility use at least one of thesedose optimization techniques: automated exposure control; mA and/or kV adjustment per patient size (includes targeted exams where dose is matched to clinical indication); or iterative reconstruction.Contrast material: ISOVUE 370; Contrast volume: 100 ml; [...] femoral artery: 1 cm Mediastinal space: Moderate-sized hiatalhernia. Aorta: There is atherosclerotic calcification of the [...] PAGE 3 Signed Report (CONTINUED) Name: MALU LAIRD : 1935 Age/S: 86 / F [address] [place], [place] [address]vd Unit #: [id number] Loc: [place] [address] Phys: Marquez Bey MD Acct: [id number] Dis Date: Status: REG CLI PHONE #: [phone] Exam Date: 09/11/2021 1041 FAX #: [phone] Reason: TAVR EXAMS: CPT CODE: [id number] CTA ABD PEL W CONT 14938 (Continued) Pancreas: No ductal dilation. 2 cm [...] CC: Carlyle Walter MD; Marquez Bey MD Technologist:RT Becki(R)(CT) CTDI: DLP: Trnscb Date/Time: 09/11/2021 (162) tQUINCYR.MP37 Orig Print D/T: S: 09/11/2021 (1620) PAGE 4 Signed Report Notes Date/Time Note Provider Source 2021-11-24 16:47:00 [id number]/NBKJ2rnVxf ghrW3rYTqyXLJ9Vl2mRkXlXKaTv0866-79-67E56:47:00 [facility] ([facility])DT Operative NoteREPORT#:[id number] REPORT STATUS: SignedDATE:11/24/21 TIME: 164 PATIENT: MALU LAIRD UNIT #: [id number]#: [id number] [address]DOB: [birth year] AGE: 86 SEX: F ATTEND: Chela Blackwell [facility] AUTHOR: Bertrand Rojas MD * ALL edits or amendments must be made on the electronic/computer document * Operative Report Operative NoteNote:OPERATION DATE: 10/17/2021 PROCEDURES PERFORMED: Transcatheter aortic valve replacement using 23-mm SapienS3 Ultra +1 mL via right femoral artery access. INDICATIONS: Severe symptomatic aortic valve stenosis. Data Designer: Moises Rojas MD.Marquez Bey MD. SURGEON: Dr. Blackwell. ACCESS:1. Right femoral artery, 14-Nicaraguan closed with a MANTA closure device.2. Left femoral artery, 6-Nicaraguan closed with 6-Nicaraguan Angio-Seal.3. Left femoral vein 8-Nicaraguan closed with mmocbo-vz-hlyvn suture. BLEEDING: Less than 40 mL. DESCRIPTION OF PROCEDURE: After informed consent was obtained the patient was brought into the hybrid operating room and monitored anesthesia care was used. Lidocaine to both groins and using micropuncture kit, ultrasound guidance and fluoroscopy, we accessed right femoral artery, left femoral artery, left femoral vein and placed 6-FrenchPinnacle sheath. Then we gave systemic heparin to assure ACT level above 250 and we upgraded the right femoral access into 14-Nicaraguan Modi sheath and then we took msrked pigtail through the left femoral access into the aortic root. temporary pacemaker placed in the RV, pacemaker tested and secured inplace and we took an AL1 catheter through the PICC sheath into the aortic rootwith a straight wire. The valve was crossed and then advanced the AL1 catheterinto the LV and exchanged to a pigtail and simultaneous pressure was measuredand then we took an Amplatz extra-stiff wire into the LV, took the pigtail out, joehen took a 23 mm Delphine S3 Ultra valve added 1 mL, then into the abdominalaorta and then the valve was assembled and then took the valve into the aorticroot across the aortic valve successfully and then under rapid pacing controlsetting and the deployment angle valve was deployed successfully withoutcomplications. Bedside echocardiogram did not show any significant leak, I thenremoved the delivery system and then I took numbered pigtail down to the distalaorta. We removed the Modi sheath and closed with MANTA closure device. Limited angiogram of the right groin showed mild extravasation and protamine wasgiven to reverse the heparin and then I took an PHUONG catheter through the leftfemoral artery into the distal aorta and crossed over with a Vado Advantagewire into the right femoral artery and then the right SFA and then exchanged fora short Destination sheath that was placed in the right common iliac artery andthen I took an 8 x 60 mm balloon and tamponade at the area of extravasation for1 minute and then for 30 seconds. Subsequently, I took angiogram extravasation,completely stopped and had good hemostasis. As such, we removed the Destinationsheath and removed the sheath from the left femoral artery and placed 6-QzubvzLdlsj-Tygj with good hemostasis. Venous sheath was removed and egudibcfryje-nc-niyrg suture with good hemostasis. CONCLUSION: Successful CURRICULUM AND INSTRUCTION DIRECTOR to the right SERVICE CENTER SUPERVISOR and hemostasis acheived.Successful transcatheter aortic valve replacement using 23-mm Delphine S3 Ultra valve on 1 mL. PLAN: Admit for 24 hours. Obtain echocardiogram tomorrow and we will plan todischarge in the next 24 hours If she continues to be stable. COMPLICATIONS: None. at 1702 RPT #:[id number] OF REPORTOPOperative tlwadn5566-19-13S02:47:00G.[id number] ilable for patient ewyiLDBYHBLCKBAQDG6409-20-50S60:03:14 [facility] 2021-10-26 15:13:00 [id number] 4nTQyqwuqnT0iz3lm1KL2GSNcvU2636-18-16H07:13:00 [facility] ([facility])History Physical - AdultREPORT#:[id number] REPORT STATUS: SignedDATE:10/26/21 TIME: 1513 PATIENT: MALU LAIRD UNIT #: [id number]#: [id number] ROOM/BED: 3307-1DOB: [birth year] AGE: 86 SEX: F ATTEND: Chela Blackwell MDADM AUTHOR: Fox Clark NP * ALL edits or amendments must be made on the electronic/computer document * Fox Clark 10/26/21 1513:History of Present Illness HPIChief complaint:Aortic stenosisPCP:PCP: Carlyle Walter MD HPI:Ms. Laird is a very pleasant 86-year-old female with aortic stenosis being followed by her prover with serial scans. Most recent echocardiogram showed severe aortic stenosis with a peak gradient of 96 and a mean gradient of 57 mmHg. Patient acknowledges SOB however denies any orthopnea, palpitation, syncope or near syncope, ankle edema or paroxysmal nocturnal dyspnea. CV surgeryconsulted to evaluate the need for intervention on her aortic valveInformant/historian: patient, prior records HistoryAdditional medical history:Thyroid problems, ArthritisAdditional surgical history:StentsFamily history:Denies: CAD < 40 yrs old. Additional family history:Positive for heart disease, cancerAlcohol use: Denies EtOH useDrug use: Denies recreational drugsSmoking status: Smoking status for patients 13 years old or older: Never SmokerOther social history: Good social support Medication/Allergy-Vaccine HxAllergies:Coded Allergies:hydromorphone (From DILAUDID) (Severe, ITCHING 10/12/21)Iodinated Contrast Media (Mild, HIVES 09/11/21) Review of SystemsConstitutional:Denies: chills, fatigue, fever. Skin:Denies: rash, swelling. Eyes:Denies: redness, discharge. Respiratory:Denies: SOB, wheezing. Cardiovascular:Denies: chest pain, DE LA CRUZ (dyspnea on exertion). GI:Denies: diarrhea, nausea, vomiting. 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 Laird is a very pleasant 86-year-old female with aortic stenosis being followed by her prover with serial scans. Most recent echocardiogram showed severe aortic stenosis with a peak gradient of 96 and a mean gradient of 57 mmHg. Patient acknowledges SOB however denies any orthopnea, palpitation, syncope or near syncope, ankle edema or paroxysmal nocturnal dyspnea. CV surgeryconsulted to evaluate the need for intervention on her aortic valve Patient seen and examined by Dr. Blackwell. Echo and angio reviewed. She has severe, symptomatic aortic stenosis and will benefit from intervention on her aortic valve. Given her age and other medical problems, she is at higher risk for surgical aortic valve replacement. Her interests would best be served undergoing transcatheter aortic valve replacement(TAVR). She was worked up and her case was presented in the structural heart conference. She was deemed a suitable candidate, for TAVR and has been admitted to the hospital today for thesame 1. Aortic StenosisTAVR today Chela Blackwell 10/28/21 0704:Attestations Physician AttestationAgree w/findings plan:I have seen and examined Ms Laird. I agree with the findings and plan as documented by YAZMIN Vázquez. Briefly, 86 YO female with severe . She was presented in the structural heart conference and deemed a suitable candidate for TAVR. Patient is being admitted to the hospital for the procedure.I have explained the procedure, risk involved,benefit, alternatives, STS risk score and complications to the patient and answered all her questions. at 1602 at 0745 [facility] #:[id number] OF REPORTHPHistory and physical ivorjqmpdtr0990-30-48X78:13:00G.[id number] AVAvailable for patient ckhwQYXOBGRWETPKST6594-30-34M44:02:16 [facility] 2021-10-19 18:09:00 [id number]+MqtfFH0MwcM+KFQERPKRU pPzmYyWQVe24CZTJc41KHbjXxnd5707-95-39X16:09:62749 3-[address] [place], [place] [address] PATIENT NAME: MALU LAIRD ADMIT DATE: 10/17/21ACCOUNT NO: [id number] ROOM NO: G.3307 AGE: 86 REPORT TYPE: eECHOCARDIOGRAM REPORT SEX: F ADMITTING PHYSICIAN:Chela Blackwell MD ATTENDING PHYSICIAN:Chela Blackwell MD *[address], [place] [address]Mnihp: [phone]: [phone] Transthoracic Echocardiogram Patient: Esperanza Lairdudkim Date: 10/18/2021 BP: 162 / 72 [id number] 1935 Age: 86 Height: 65 in / 165.1 cmAccession#: [id number] Gender: F Weight: 167.6 lb / 76.2 kgBMI/BSA: 28 kg/m 2 / 1.89 m 2 *Ordering Physician: * Aguila Boyle *Interpreting Physician: * Bertrand Rojas MD*Manager Nc: * Pily Tillman Indications: POST TAVR. Study data: Transthoracic echocardiogram. Procedure: Transthoracicechocardiography was performed. Image quality was adequate. Vikdzlne3K, complete spectral Doppler, and color Doppler. Location: Bedside.Patient status: Inpatient. Patient room number: 3307. Study status:Routine. Findings Left ventricle: The cavity size is normal. Wall thickness is normal.Systolic function is normal. The estimated ejection fraction is 55-59%.Wall motion is normal; there are no regional wall motion abnormalities.Left ventricular diastolic function parameters are normal for thepatient's age.Right ventricle: The cavity size is normal. Systolic function isPATIENT NAME: MALU LAIRD normal. Systolic pressure is within the normal range.Left atrium: The atrium is dilated.Right atrium: The atrium is normal in size.Aorta: Aortic root: The aortic root is normal in size.Aortic valve: There is a bioprosthetic valve.Post TAVR: There is a Modi DELPHINE 3, 23 mm transcatheter valve thatis well seated in the aortic valve position. The LVOT diameter is 2 cm.The peak aortic gradient is 37 mmHg. The mean aortic gradient is 18.4mmHg. The LVOT VTI is 29.3 cm. The AV VTI is 67 cm. The aortic valvearea is 1.4 cm 2. The peak jet velocity is 3 m/sec. There is a mildperivalvular leak. There is no evidence of stenosis. There is noregurgitation.Mitral valve: The valve is structurally normal. There is noevidence of stenosis. There is mild regurgitation.Tricuspid valve: The valve is structurally normal. There is mildregurgitation.Pulmonic valve: The valve is structurally normal. There is noregurgitation.Pericardium: A trivial pericardial effusion is identified.Pulmonary arteries:Main pulmonary artery: The artery is of normal size.Systemic veins:Inferior vena cava: The vessel is normal in size. Measurements Left ventricle Value 10/17/2021 Ref MYRIAM, LAX 4.5 cm 5.4 3.8 - 5.2 ESD, LAX 3.2 cm 3.7 2.2 - 3.5 ESD/bsa, 1.7 cm/m 2 2.0 1.3 - 2.1 LAX FS, LAX 30 % 32 27 - 45 ESD/bsa 3.9 cm/m 2 3.3 --------- major ax, A4C MYRIAM/bsa 3.9 cm/m 2 3.3 --------- minor ax, A4C MYRIAM major 8.8 cm 7.8 --------- ax, A2C MYRIAM/bsa 4.6 cm/m 2 4.2 --------- major ax, A2C PW, ED 1.0 cm 0.7 0.6 - 0.9 IVS/PW, ED 1.07 1.74 --------- EF 57 % 60 54 - 74 LVOT Value 10/17/2021 Ref Diam, S 2.03 cm 1.95 --------- Area 3.2 cm 2 3.0 --------- Peak courtney, S 1.32 m/sec 1.42 --------- Mean courtney, S 0.78 m/sec 0.97 --------- VTI, S 29.3 cm 33.5 ---------PATIENT NAME: MALU LAIRD Peak grad, 7 mm Hg 8 --------- S Mean grad, 3 mm Hg 4 --------- S SV 95 ml 100 --------- SV/bsa 50 ml/m 2 53 --------- Ventricular septum Value 10/17/2021 Ref IVS, ED 1.1 cm 1.1 0.6 - 0.9 Right ventricle Value 10/17/2021 Ref MYRIAM, LAX 2.6 cm --------- Pressure, S 45 mm Hg --------- RVOT Value 10/17/2021 Ref Peak v, S 0.67 m/sec --------- Peak grad, 2 mm Hg --------- S Left atrium Value 10/17/2021 Ref Vol/bsa, 43 ml/m 2 30 11 - 40 ES, 1-p A4C Vol/bsa, 47 ml/m 2 32 16 - 34 ES, A/L AP dim, ES 3.5 cm 4.3 2.7 - 3.8 MM LA/Ao root 1.24 2.58 --------- ratio, MM Aortic valve Value 10/17/2021 Ref Leaflet 1.49 cm 0.71 --------- sep, MM Peak v, S 3.04 m/sec 2.99 --------- Mean v, S 2.01 m/sec 2.02 --------- VTI, S 67.0 cm 58.8 --------- Mean grad, 18.4 mm Hg 19.2 --------- S Peak grad, 37.0 mm Hg 35.8 --------- S LVOT/AV, 0.44 0.57 --------- VTI ratio CONSTANZA, VTI 1.41 cm 2 0.70 --------- LVOT/AV, 0.43 0.47 --------- Vpeak ratio CONSTANZA, Vmax 1.40 cm 2 0.74 --------- Mitral valve Value 10/17/2021 Ref E-septal 0.9 cm --------- separation E-F slope 0.06 m/sec --------- Peak E 1.31 m/sec 0.82 --------- Peak A 0.74 m/sec 1.24 --------- Decel time 231 ms 221 --------- PHT 64 ms 106 ---------PATIENT NAME: MALU LAIRD Peak grad, 6.9 mm Hg 2.7 --------- D Peak E/A 1.76 0.66 --------- ratio MVA, PHT 3.4 cm 2 2.1 --------- Tricuspid valve Value 10/17/2021 Ref TR peak v 2.96 m/sec 2.09 <=2.8 Peak RV-RA 35 mm Hg 17 --------- grad, S Aortic root Value 10/17/2021 Ref Root diam, 2.82 cm 1.68 --------- ED MM Pulmonary artery Value 10/17/2021 Ref Pressure, S 42.6 mm Hg --------- Systemic veins Value 10/17/2021 Ref Estimated 10 mm Hg --------- CVP Conclusions Summary: 1. Left ventricle: The cavity size is normal. Wall thickness is normal. Systolic function is normal. The estimated ejection fraction is 55-59%. Wall motion is normal; there are no regional wall motion abnormalities. Left ventricular diastolic function parameters are normal for the patient's age.2. Right ventricle: The RV pressure during systole by Doppler is 45 mm Hg.3. Left atrium: The atrium is dilated.4. Aortic valve: There is a bioprosthetic valve. There is a Modi DELPHINE 3, 23 mm transcatheter valve that is well seated in the aortic valve position. There is a mild perivalvular leak. The peak systolic velocity is 3.04 m/sec. The mean systolic gradient is 18.4 mm Hg. The peak systolic gradient is 37.0 mm Hg. The valve area by the velocity-time integral method is 1.41 cm 2.5. Mitral valve: There is mild regurgitation.6. Tricuspid valve: There is mild regurgitation.7. Pericardium, extracardiac: A trivial pericardial effusion is identified. Prepared and electronically signed by Bertrand Rojas MD10/19/2021 18:08 PATIENT NAME: MALU LAIRD at 1809 PATIENT NAME: MALU LAIRD :09:0 0G.[id number] for patient cvxnXGEPZRPVMVOBHO2418-48-05B89:09:43 [facility] 2021-10-19 15:45:00 [id number]+Xxr1S1OIW3DXtYl4tOBXgG x0Jmyv49D9fdt1wwm4jgDlNfuyb2702-61-91R40:45:00 [facility] ([facility])Discharge SummaryREPORT#:[id number] REPORT STATUS: SignedDATE:10/19/21 TIME: 1545 PATIENT: MALU LAIRD UNIT #: [id number]#: [id number] [address] [birth year] AGE: 86 SEX: F ATTEND: Chela Blackwell [facility] AUTHOR: Aguila Boyle * ALL edits or amendments must be made on the electronic/computer document * General InformationDischarge date: 10/19/21Hospital course:Malu Laird is a 86-year-old female with a past medical history that significant for severe aortic stenosis coronary disease, hyperlipidemia, hypertension, who was admitted for elective ERICK procedure by Dr. Bey. Due to her shortness ofbreath on exertion, patient was investigated by her prover. Echo done on 07/27/2021 suggestive of severe with a CONSTANZA 0.9, mean gradient 16.11, jet velocity 4.9, EF 55 to 60%. Coronary angiogram on 08/28/2021 showed stent in theproximal RCA. Due to the severe symptomatic aortic stenosis, patient's profile was discussed in the structural heart conference and patient is deemed a suitable candidate for elective ERICK procedure. Patient STS score calculated at4.5% with NYHA II symptoms. Patient therefore had ERICK procedure with the placement of 23 mm Modi Delphine S3 valve via Transfemoral approach via MAC. Patient tolerated the procedure. Patient was kept overnight due to complaints of urinary frequency, and urinary incontinence. patient has a Chin catheter place which has been removed this morning. Patient also had some hypokalemia and hypomagnesemia electrolytes have been repleted. Patient reported photopsia and was seen by neuro, who cleared her and indicated no further neuro work-up. Patient has been seen this morning by CV surgery as well as cardiology and patient is stable to be discharged to home today for outpatient follow-up. PostTAVR discharge instructions and handout given to the patient verbalized understanding Med Rec Med RecDischarge meds:Continue taking these medications:FUROSEMIDE (LASIX) 40 MG TAB 40 MILLIGRAM ORAL DAILY. ALLOPURINOL (ZYLOPRIM) 100 MG TAB 100 MILLIGRAM ORAL DAILY. PANT[address]RAZOLE DR (PROTONIX) 40 MG TAB.DR 40 MILLIGRAM ORAL DAILY. LEVOTHYROXINE (SYNTHROID) 125 MCG TAB 125 MICROGRAM ORAL DAILY. ASPIRIN (ASPIRIN) 81 MG TAB.CHEW 81 MILLIGRAM ORAL DAILY. ZOLPIDEM (AMBIEN) 10 MG TAB 10 MILLIGRAM ORAL AT BEDTIME NEEDED. as needed for SLEEP QUEtiapine (SEROquel) 50 MG TAB 50 MILLIGRAM ORAL BEDTIME. Start taking the following new medications:CLOPIDOGREL (PLAVIX) 75 MG TAB 75 MILLIGRAM ORAL DAILY. Qty = 30 Refills = 3 ObjectiveVS/I OLast Documented: Result Date Time Pulse Ox 100 10/19 1103 B/P 163/72 10/19 1103 B/P Mean 104 10/19 1103 Pulse 59 10/19 1103 Resp 26 10/19 1103 Temp 37.1 10/19 0730 FiO2 21 10/19 0113 O2 Delivery Room air 10/19 0113 O2 Flow Rate 0 10/18 1600 PATIENT WEIGHT: Weight (lb): 173Weight (oz): 1.01Weight (kg): 78.500 General appearance: alert, awake, orientedCardiovascular: normal capillary refill, regular rate rhythm, normal heart sounds, BP/pulses equal bilat.Respiratory: clear to auscultation, no distress, no tendernessGI: soft, non-tender, no guardingExtremities: moves all, no edema-all extremitiesMusculoskeletal: full range of motion, normal inspection, no CVA tendernessSkin: dry, intact, no gross abnormalities Assess/PlanFree Text A P:Symptomatic severe aortic stenosis * Patient is status post transcatheter aortic valve implantation (ERICK) with a 23 mm [employer] sapein ultra valve via -transfemoral approach under MAC.* Patient tolerated procedure without any postoperative complications* Reports reproducible CP and redness to chest. Dr Rojas aware-Likely musculoskeletal* Patient is currently hemodynamically stable.* Patients bilateral groin incision is CDI, without hematoma, no signs of bleeding or infection.* Post op echo reviewed by Data Designer today suggestive of a normal-appearing bioprosthetic valve in the aortic position.* Patient with complaints of photopsia- Per Neuro- Resolving and no further neuro work-up indicated.* Reports urinary urgency/Frequency- UA negative, s/p Chin which has been removed. Patient needs to void prior to DC* Dual antiplatelet therapy continued with aspirin and Plavix.* K and Mag repleted* Per CV surgery/Cardiology patient is stable to be discharged to home for outpatient follow up* Patient instructed to follow up with PCP in 1-2 weeks.* Patient instructed to follow-up with regular [facility] 1-2 weeks.* Also instructed to follow-up in the valve clinic in 30 days and 1 year for Medicare Registry Visit.* Post ERICK discharge instructions /handout given to the patient who verbalized understanding of the instructions given and patient is notified to report any complaints of chest pain, shortness of breath lightheadedness or dizziness to [facility]. Discharge Instructions PCPPCP:PCP: Carlyle Walter MD )( Discharge to: Home/Self Care Discharge InstructionsAdditional Discharge Routines: None)( Diet: Resume Home Diet/Feeds)( Activity: Resume Normal Activity, As Tolerated, Appropriate for Age)( Wound/dressing care: Clean wound daily, Keep wound clean and dry, Leave dressing in place, OK to shower tomorrow)( Notify PCP of these S/S: Chest Pain, Increased redness, Increased swelling, Increased tenderness/pain, Moderate/large bleeding, Numbness, Pus-like discharge, Red line from wound, Shortness of breath, Temp. 101 or greaterPrescriptions: e-prescribe Follow-up AppointmentsPCP follow up: PCP: Carlyle Walter MD Vntgtpfqa Physician: Ofyjaoiipd provider 1: Provider 1: Marquez Bey MD Specialty: CardiologyInterventional Consult follow up timeframe: In 1-2 weeks Special instructions:CALL TO SCHEDULE APPOINTMENT at 1052 RPT #:[id number] OF REPORTDSDischarge [id number]:45:00G.[id number] ailable for patient rjfqZTCULLLJPJLLSY0612-55-96X06:52:46 [facility] 2021-10-19 09:24:00 [id number]+RMIvLijR2nIWG3y5 LLplZGUKmtQZC5ErlAfsH5dbLRh2043-61-58B05:24:00 [facility] CenterCard[facility] Progress NoteREPORT#:[id number] REPORT STATUS: SignedDATE:10/19/21 TIME: 923 PATIENT: MALU LAIRD UNIT #: [id number]#: [id number] [address] AGE: 86 SEX: F ATTEND: Chela Blackwell [facility] AUTHOR: Zully Crow * ALL edits or amendments must be made on the electronic/computer document * SubjectivePatient reports:No: complaints. Objective GeneralVS/I O:24 hour I O ending at 0700: 03 0700 03/02 1900 Intake Total 300 630 Output Total 475 2925 Balance -175 -2295 Intake, Oral 300 630 Intake, Oral 0 Supplement Number 2 Bowel Movements Number 4 Incontinent Voids Output, Urine 568 2257 Vital Signs: Date Time Temp Pulse Resp B/P B/P Pulse O2 O2 Flow FiO2 Mean Ox Delivery Rate 03/03 0730 37.1 65 31 150/67 96 99 03/03 0700 65 32 155/67 96 94 03/03 0601 60 21 145/61 88 97 03/03 0500 62 27 128/62 89 96 03/03 0411 66 12 151/68 98 99 03/03 0301 72 23 154/67 96 98 03/03 0200 73 23 125/62 89 96 03/03 0113 94 Room air 21 03/03 0100 80 32 117/58 83 95 03/03 0000 70 33 104/49 71 94 03/02 2300 80 32 114/51 74 94 03/02 2230 79 38 116/54 78 95 03/02 2100 79 28 156/68 98 95 03/02 1999 36.6 03/02 1999 79 25 146/65 93 96 03/02 1900 79 39 150/67 96 97 03/02 1805 81 30 149/68 98 98 03/02 1800 91 43 230/136 176 97 03/02 1754 81 31 190/78 112 98 03/02 1700 76 38 180/68 98 97 03/02 1600 36.3 73 31 119/58 83 98 0 03/02 1526 73 29 125/58 83 98 03/02 1520 70 24 93/46 66 99 03/02 1500 71 21 153/65 94 100 03/02 1400 69 38 160/93 121 98 03/02 1300 68 23 157/70 101 97 03/02 1230 36.8 68 20 135/62 89 98 0 03/02 1132 77 19 190/79 114 99 03/02 1100 65 21 150/67 97 98 03/02 1000 66 21 137/66 95 97 03/02 0930 72 23 143/63 91 99 PATIENT WEIGHT: Weight (lb): 173Weight (oz): 1.01Weight (kg): 78.500 Medications:Active Meds + DC'd Last 24 HrsPotassium Chloride (POTASSIUM CHLORIDE 20MEQ TAB.ER) 20 MEQ ONCE ONE PO (DC) Potassium Chloride (POTASSIUM CHLORIDE 20MEQ TAB.ER) 20 MEQ ONCE ONE PO (DC) Potassium Chloride (KCL 10MEQ/SWFI 50ML) 50 ML Q1HR IV (DC) Hydralazine HCl (APRESOLINE) 10 MG Q6H PRN PRN IV Furosemide (LASIX) 40 MG DAILY PO (DC) Mupirocin (BACTROBAN 2% 22 GM OINTMENT) 1 APPLIC BID NASAL Allopurinol (ZYLOPRIM) 100 MG C BK PO Aspirin (ASPIRIN) 81 MG C BK PO Levothyroxine Sodium (SYNTHROID) 125 MCG DAILY 0600 PO Pantoprazole (PROTONIX) 40 MG DAILY 0600 PO Clopidogrel Bisulfate (Plavix) 75 MG BEDTIME PO Quetiapine Fumarate (SEROqueL) 50 MG BEDTIME PO Dopamine HCl/Dextrose (DOPamine 400MG/D5W 250ML) 250 ML ASDIR IV Acetaminophen (TYLENOL) 650 MG Q6H PRN PRN PO Atropine Sulfate (ATROPINE SULFATE 0.1MG/ML SYR) 0.5 MG ASDIR PRN IV Docusate Sodium (COLACE) 100 MG BID PRN PO Hydralazine HCl (APRESOLINE) 10 MG Q6H PRN PRN IV Ondansetron HCl (ZOFRAN) 4 MG Q6H PRN PRN IV Sodium Chloride (SODIUM CHLORIDE 0.9%) 500 ML ASDIR PRN IV Zolpidem Tartrate (AMBIEN) 10 MG BEDTIME PRN PRN PO Acetaminophen (TYLENOL EXTRA STRENGTH) 1,000 MG PREOP ONCALL PO (DC) Lactated Ringer's (LACTATED RINGERS) 1,000 ML PREOP ONCALL IV (DC) Lidocaine HCl (LIDOCAINE HCL/PF) 2 ML PREOP ONCALL LOCAL (DC) Lidocaine HCl (LIDOCAINE HCL/PF) 2 ML PREOP ONCALL LOCAL (DC) Sodium Chloride (SODIUM CHLORIDE 0.9%) 500 ML PREOP ONCALL IV (DC) Sodium Chloride (SODIUM CHLORIDE 0.9%) 500 ML PREOP ONCALL IV (DC) Sodium Chloride (SODIUM CHLORIDE 0.9%) 1,000 ML PREOP ONCALL IV (DC) Sodium Chloride (SODIUM CHLORIDE) 5 ML ASDIR PRN IV (DC) Sodium Chloride (SODIUM CHLORIDE) 10 ML ASDIR PRN IV (DC) Sodium Chloride (SODIUM CHLORIDE 0.9%) 250 ML ASDIR PRN IV (DC) Status post:10/17 TAVR Physical ExamGeneral appearance: alert, awake, oriented, no acute distressHead/Eyes: atraumatic, clear corneaENT: moist mucosal membranesNeck: no JVDCardiovascular: CV assessment: regular rate and rhythm, no heave, no murmurRespiratory: decreased breath sounds, no distressAbdomen: soft, non-tender, normal bowel sounds, no distentionGenitourinary: chin, urineUpper extremity: UE assessment: normal capillary refill, normal temperature, no edemaLower extremity: LE assessment: normal temperature, no edemaNeuro/CELLOPHANE BAG MACHINE OPERATOR: alert, normal speechSkin: bruise at midsternal -tenderness w/ palpitation.Wound/incision: Location:left groin stableLeft radial bruise but no hematomaPsychiatry: anxious ResultsFindings/Data:Laboratory Tests 10/19 10/18 10/18 0345 2200 1710 Chemistry Sodium (134 - 147 mEq/L) 145 141 143 Potassium (3.4 - 5.0 mEq/L) 3.6 5.2 H 3.3 L Chloride (100 - 108 mEq/L) 110 H 110 H 108 Carbon Dioxide (21 - 33 mEq/l) 24 21 23 Anion Gap (0 - 20) 15 15 15 BUN (7 - 18 mg/dL) 15 11 17 Creatinine (0.6 - 1.3 mg/dL) 0.9 0.9 0.9 Glomerular Filtr Rate (70 - 80) 59.2 L 59.2 L 59.2 L Glucose (70 - 110 mg/dL) 126 H 122 H 116 H Calcium (8.0 - 10.5 mg/dL) 9.5 8.5 8.9 Ionized Calcium Al (1.12 - 1.32 MMOL/L) 1.17 1.16 Phosphorus (2.5 - 4.9 MG/DL) 2.9 2.5 Magnesium (1.80 - 2.40 mg/dL) 2.19 2.09 1.81 Laboratory Tests 10/19 0345 Hematology WBC (4.5 - 11.0 x10 3/uL) 9.2 RBC (3.54 - 5.02 x10 6/uL) 3.92 Hgb (11.0 - 15.0 g/dL) 9.7 L Hct (33.0 - 45.0 %) 31.4 L MCV (81.0 - 99.0 fL) 80.1 L MCH (27.0 - 33.0 pg) 24.7 L MCHC (33.0 - 37.0 g/dL) 30.9 L RDW (11.5 - 14.5 %) 17.7 H Plt Count (150 - 400 x10 3/uL) 150 MPV (7.0 - 9.0 fL) 10.4 H Neut % (Auto) (56.0 - 77.0 %) 70.9 Lymph % (Auto) (14.0 - 32.0 %) 17.0 Yates % (Auto) (4.8 - 9.0 %) 11.4 H Eos % (Auto) (0.3 - 3.7 %) 0.0 L Baso % (Auto) (0.0 - 2.0 %) 0.2 Neut # (Auto) (2.0 - 7.6 x10 3/uL) 6.49 Lymph # (Auto) (1.0 - 3.8 x10 3/uL) 1.56 Yates # (Auto) (0.1 - 0.8 x10 3/uL) 1.04 H Eos # (Auto) (0.0 - 0.2 x10 3/uL) 0.00 Baso # (Auto) (0.0 - 0.2 x10 3/uL) 0.02 Abs Immat Gran (auto) (0.00 - 0.03 x10 3/uL) 0.05 H Add Manual Diff NO Immature Gran % (0.0 - 2.0 %) 0.5 Nucleated RBC % (0 - 0 %) 0.0 Nucleated RBCs # (Man) (0.0 - 0.1 x10 3/uL) 0.00 Laboratory Tests 10/18 1200 Urines Urine Color (YEL/STRAW) STRAW Urine Appearance (CLEAR) CLEAR Urine pH (5.0 - 7.0) 5.0 Ur Specific [place] (1.005 - 1.030) 1.015 Urine Protein (NEGATIVE) NEGATIVE Urine Glucose (UA) (NEGATIVE) NEGATIVE Urine Ketones (NEGATIVE) NEGATIVE Urine Blood (NEGATIVE) NEGATIVE Urine Nitrite (NEGATIVE) NEGATIVE Urine Bilirubin (NEGATIVE) NEGATIVE Urine Urobilinogen (0.2 - 1.0 mg/dL) 0.2 Ur Leukocyte Esterase (NEGATIVE) NEGATIVE Urine RBC (0 - 3 RBC/HPF) 0-3 Urine WBC (0 - 3 WBC/HPF) 0-3 Ur Squamous Epith Cells (NONE SEEN /HPF) 0-5 Urine Bacteria (NONE SEEN /HPF) TRACE Urine Mucus (NONE SEEN /LPF) TRACE Laboratory Tests 10/19 10/18 10/18 0345 2200 1710 Chemistry Magnesium (1.80 - 2.40 mg/dL) 2.19 2.09 1.81 Results: labs reviewed, vital signs reviewedTelemetry Interpretation:sinus rhythm Diagnosis, Assessment PlanPlan discussed with: patient, daughter, nurse Free Text DxA P NotesFree Text DxA P Notes:1. Severe symptomatic AAS: S/p successful ERICK, Modi Sapien3, 23mm valve. Patient arteriotomy site on the right common femoral artery was secured by [place] there was marked extravasation and we applied pressure and we did angioplasty and tamponade the bleed with good hemostasis. We will monitor the patient in CCU, get echocardiogram in the morning and anticipate discharge tomorrow. - Severe symtomatic . s/p TAVR Modi' delphine S3, [address] Rojas discussed echo result w/ pt and her daughter, EF normal 60-64% and valve seated well in Aortic valve position. Cont ASA and Plavix x 6 months then ASA only later. - Photopsia -resolvedPer neuro.No further workupper patient, she is known to have floaters even prior to this admission - Urinary incontinencefoley dc'd, patient need to void prior to DC - Hypomagnesia. Replaced. Per IM. Doing well. Hemodynamically stable. Okay to DC home. Discharge meds to be taken care of by the TAVR BLACK ASH WORKER. Outpatient follow-up with Dr. Bey in 1-2 weeks. at 1241 at 0758 [facility] #:[id number] OF REPORTPRProgress [id number]:24:00G.[id number] able for patient cbsmDKYUWWCMCFMCSH7702-50-27F99:45:03 [facility] 2021-10-18 11:50:00 [id number]+oEeJ+ftQL1Cv NDHA8yr5ZDJdwBeAv0HhEA2zImO3446-34-48Y00:50:00 [facility] ([facility])Neurology Consultation NoteREPORT#:[id number] REPORT STATUS: SignedDATE:10/18/21 TIME: 1150 PATIENT: MALU LAIRD UNIT #: [id number]#: [id number] [address] AGE: 86 SEX: F ATTEND: Chela Blackwell [facility] AUTHOR: Nazario Monroy MD * ALL edits or amendments must be made on the electronic/computer document * History of Present Illness HPIHand dominance: rightRequesting clinician: Dr. Dee for consult:photopsia Chief complaint:visual phenomenaHPI:Patient is an 86 year old right handed female with a PMH of aortic stenosis s/p TAVR yesterday as well as hypothyroidism, hypertension who began to report new visual phenomena overnight. Patient states that she was without any neurologic symptoms when she recovered from her procedure. However, at 0030 or 0100hrs she began to note brief (<1s) streaks of light in her eyes that occurred intermittently. She states they were at least 10min apart maybe even thirty. Shestates they have not occurred recently but did occur perhaps 1x this morning. She is unsure if these were any one eye or both due to their short duration but she denies predilection to one field of view. 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 Patient did have a post procedure echocardiogram performed which revealed well placed TAVR device without evidence of perivalvular leak. Patient is on DAPT. History - Adult longitudinalAdditional medical history:Thyroid problems, ArthritisAdditional surgical history:StentsFamily history:Denies: CAD < 40 yrs old. Additional family history:Positive for heart disease, cancerAlcohol use: Denies EtOH useDrug use: Denies recreational drugsSmoking status: Smoking status for patients 13 years old or older: Never SmokerOther social history: Good social supportAllergies:Coded Allergies:hydromorphone (From DILAUDID) (Severe, ITCHING 10/12/21)Iodinated Contrast Media (Mild, HIVES 09/11/21) Review of SystemsCardiovascular:Reports: chest pain. :Reports: urgency. Musculoskeletal:Reports: arthritis, joint pain. Neuro:Reports: bladder incontinence. All systems rev neg: except as marked Objective GeneralVS:Last Documented: Result Date Time Pulse Ox 99 10/18 929 B/P 143/63 10/18 929 B/P Mean 91 10/18 929 Pulse 72 10/18 929 Resp 23 10/18 929 O2 Flow Rate 0 10/18 08 Temp 36.5 10/18 08 O2 Delivery Room air 10/18 0400 PATIENT WEIGHT: Weight (lb): 173Weight (oz): 1.01Weight (kg): 78.500 MedicationsCurrent Home MedicationsFUROSEMIDE (LASIX) 40 MG PO DAILY ALLOPURINOL (ZYLOPRIM) 100 MG PO DAILY PANTOPRAZOLE DR (PROTONIX) 40 MG PO DAILY LEVOTHYROXINE (SYNTHROID) 125 MCG PO DAILY ASPIRIN 81 MG PO DAILY ZOLPIDEM (AMBIEN) 10 MG PO BEDTIME PRN PRN SLEEP QUEtiapine (SEROquel) 50 MG PO BEDTIME Active Meds + DC'd Last 24 HrsHydralazine HCl (APRESOLINE) 10 MG Q6H PRN PRN IV Furosemide (LASIX) 40 MG DAILY PO Mupirocin (BACTROBAN 2% 22 GM OINTMENT) 1 APPLIC BID NASAL Allopurinol (ZYLOPRIM) 100 MG C BK PO Aspirin (ASPIRIN) 81 MG C BK PO Hydralazine HCl (APRESOLINE) 10 MG ONCE ONE IV (DC) Levothyroxine Sodium (SYNTHROID) 125 MCG DAILY 0600 PO Pantoprazole (PROTONIX) 40 MG DAILY 0600 PO Magnesium Sulfate (MAGNESIUM SULFATE 2GM/SWFI 50ML) 50 ML ONCE ONE IV (DC) Glycopyrrolate (GLYCOPYRROLATE) 0.2 MG ONCE ONE IV (DC) Clopidogrel Bisulfate (Plavix) 75 MG BEDTIME PO Quetiapine Fumarate (SEROqueL) 50 MG BEDTIME PO Sodium Chloride (SODIUM CHLORIDE 0.9%) 1,000 ML BOLUS ONCE ONE IV (DC) Dopamine HCl/Dextrose (DOPamine 400MG/D5W 250ML) 250 ML ASDIR IV Dopamine HCl/Dextrose (DOPamine 400MG/D5W 250ML) 250 ML .STK-MED ONE IV (DC) Protamine Sulfate (PROTAMINE SULFATE) 0 .STK-MED ONE IV (DC) Protamine Sulfate (PROTAMINE SULFATE) 0 .STK-MED ONE IV (DC) Acetaminophen (TYLENOL) 650 MG Q6H PRN PRN PO Atropine Sulfate (ATROPINE SULFATE 0.1MG/ML SYR) 0.5 MG ASDIR PRN IV Docusate Sodium (COLACE) 100 MG BID PRN PO Hydralazine HCl (APRESOLINE) 10 MG Q6H PRN PRN IV Ondansetron HCl (ZOFRAN) 4 MG Q6H PRN PRN IV Sodium Chloride (SODIUM CHLORIDE 0.9%) 500 ML ASDIR PRN IV Iopamidol (ISOVUE-370 200ML) 200 ML .STK-MED ONE IV (DC) Propofol (DIPRIVAN 200MG/20ML INJECTION) 20 ML .STK-MED ONE IV (DC) Midazolam HCl (VERSED) 0 .STK-MED ONE .ROUTE (DC) Zolpidem Tartrate (AMBIEN) 10 MG BEDTIME PRN PRN PO Dexmedetomidine HCl (PRECEDEX) 0 .STK-MED ONE IV (DC) Fentanyl Citrate (SUBLIMAZE) 0 .STK-MED ONE .ROUTE (DC) Midazolam HCl (VERSED) 0 .STK-MED ONE .ROUTE (DC) Cefazolin Sodium (KEFZOL OR ANCEF) 0 .STK-MED ONE .ROUTE (DC) Heparin Sodium/Sodium Chloride (HEPARIN 2,000 UNITS/NS 1,000mL) 3,000 ML .STK-MED ONE IV (DC) Heparin Sodium/Sodium Chloride (HEPARIN 1,000 UNITS/NS 500ML) 1,000 ML .STK-MED ONE IV (DC) Lidocaine HCl (LIDOCAINE HCL/PF) 0 .STK-MED ONE .ROUTE (DC) Fentanyl Citrate (SUBLIMAZE) 100 MCG PACU Q10MIN PRN PRN IV (DC) Fentanyl Citrate (SUBLIMAZE) 50 MCG PACU Q10MIN PRN PRN IV (DC) Hydralazine HCl (APRESOLINE) 2 MG PACU Q10MIN PRN PRN IV (DC) Insulin Human Lispro (HUMALOG) 0 PACU ONCE PRN SUBQ (DC) Labetalol HCl (LABETALOL HCL) 5 MG PACU Q10MIN PRN PRN IV (DC) Meperidine HCl (DEMEROL 50MG/ML) 12.5 MG PACU ONCE PRN IV (DC) Ondansetron HCl (ZOFRAN) 4 MG PACU ONCE PRN IV (DC) Ropivacaine (NAROPIN 0.5% 150 MG/30mL) 150 MG ASDIR PRN LOCAL (DC) Acetaminophen (TYLENOL EXTRA STRENGTH) 1,000 MG PREOP ONCALL PO (CKD) Lactated Ringer's (LACTATED RINGERS) 1,000 ML PREOP ONCALL IV Lidocaine HCl (LIDOCAINE HCL/PF) 2 ML PREOP ONCALL LOCAL Lidocaine HCl (LIDOCAINE HCL/PF) 2 ML PREOP ONCALL LOCAL Sodium Chloride (SODIUM CHLORIDE 0.9%) 500 ML PREOP ONCALL IV Sodium Chloride (SODIUM CHLORIDE 0.9%) 500 ML PREOP ONCALL IV Sodium Chloride (SODIUM CHLORIDE 0.9%) 1,000 ML PREOP ONCALL IV Sodium Chloride (SODIUM CHLORIDE) 5 ML ASDIR PRN IV Sodium Chloride (SODIUM CHLORIDE) 10 ML ASDIR PRN IV Sodium Chloride (SODIUM CHLORIDE 0.9%) 250 ML ASDIR PRN IV ResultsFindings/Data:Laboratory Tests 10/17 1646 Blood Gas ABG Hematocrit (33.0 - 45.0 %) 27 L ABG Hemoglobin (11.0 - 15.0 G/DL) 9.1 L VBG pH (7.33 - 7.45) 7.308 L VBG pCO2 (43 - 47 mmHg) 43.6 VBG pO2 (10 - 50 mmHG) 49.9 VBG HCO3 (22 - 27 MMOL/L) 21.9 L POC VBG Total CO2 23.2 VBG O2 Saturation (60 - 80 %) 81.2 H VBG Base Excess (-4.0 - 4.0 MMOL/L) -4.2 L Sodium (134 - 147 MEQ/L) 144 Potassium (3.4 - 5.0 MEQ/L) 4.0 Chloride (100 - 108 MEQ/L) 111 H Ionized Calcium (1.12 - 1.32 MMOL/L) 1.24 Lactic Acid (0.9 - 1.7 mmol/l) 0.9 Laboratory Tests 10/18 10/17 0400 1646 Chemistry Sodium (134 - 147 mEq/L) 144 Potassium (3.4 - 5.0 mEq/L) 3.9 Chloride (100 - 108 mEq/L) 113 H Carbon Dioxide (21 - 33 mEq/l) 21 Anion Gap (0 - 20) 14 BUN (7 - 18 mg/dL) 20 H Creatinine (0.6 - 1.3 mg/dL) 0.9 POC Creatinine (0.6 - 1.0 mg/dL) 1.2 H Glomerular Filtr Rate (70 - 80) 59.2 L Glucose (70 - 110 mg/dL) 102 POC Glucose (mg/dL) (MG/DL) 136 Calcium (8.0 - 10.5 mg/dL) 8.2 Magnesium (1.80 - 2.40 mg/dL) 1.70 L Total Bilirubin (0.0 - 1.0 mg/dL) 0.30 AST (15 - 37 IUnit/L) 30 ALT (30 - 65 IUnit/L) 9 L Total Alk Phosphatase (20 - 125 IUnit/L) 71 Total Protein (6.4 - 8.2 g/dL) 5.9 L Albumin (3.4 - 5.0 g/dL) 2.90 L Laboratory Tests 10/17 1643 Coagulation Activated Coag Time (74 - 137 SEC) 315 H Laboratory Tests 10/18 2245 1900 Hematology WBC (4.5 - 11.0 x10 3/uL) 7.5 RBC (3.54 - 5.02 x10 6/uL) 3.14 L Hgb (11.0 - 15.0 g/dL) 8.0 L 8.1 L 8.2 L Hct (33.0 - 45.0 %) 25.5 L 26.3 L 27.0 L MCV (81.0 - 99.0 fL) 81.2 MCH (27.0 - 33.0 pg) 25.5 L MCHC (33.0 - 37.0 g/dL) 31.4 L RDW (11.5 - 14.5 %) 17.3 H Plt Count (150 - 400 x10 3/uL) 147 L MPV (7.0 - 9.0 fL) 10.7 H Neut % (Auto) (56.0 - 77.0 %) 74.5 Lymph % (Auto) (14.0 - 32.0 %) 16.6 Yates % (Auto) (4.8 - 9.0 %) 8.5 Eos % (Auto) (0.3 - 3.7 %) 0.0 L Baso % (Auto) (0.0 - 2.0 %) 0.1 Neut # (Auto) (2.0 - 7.6 x10 3/uL) 5.55 Lymph # (Auto) (1.0 - 3.8 x10 3/uL) 1.24 Yates # (Auto) (0.1 - 0.8 x10 3/uL) 0.63 Eos # (Auto) (0.0 - 0.2 x10 3/uL) 0.00 Baso # (Auto) (0.0 - 0.2 x10 3/uL) 0.01 Abs Immat Gran (auto) (0.00 - 0.03 x10 3/uL) 0.02 Add Manual Diff NO Immature Gran % (0.0 - 2.0 %) 0.3 Nucleated RBC % (0 - 0 %) 0.3 H Nucleated RBCs # (Man) (0.0 - 0.1 x10 3/uL) 0.02 Free Text Obj NotesFree Text Obj Notes:General: well nourished for age but elderly appearingHEENT: NCAT, anicteric sclera, posterior pharynx clear, mucus membranes moistCV: regular rate, intact peripheral pulsesPulm: breathing comfortably, no wheezing, symmetric chest expansionAbd: soft, non-tender, non-distendedExt: skin clear, no rashes, no edema Neurology: Mental Status: A Ox3, good concentration; normal fund of knowledge and memory. 3/3 past presidentsLanguage: intact fluency, comprehension, naming, and repetitionSpeech: no dysarthriaCN: PERRL without any rAPD, 3 mm BL, EOMI, no nystagmus, full VF without extinction, ansler grid unremarkable. No ; no facial asymmetry, facial sensationintact; auditory acuity intact; tongue midline, palate elevates symmetrically, SCM/trapezius intactMotor: AG throughout, no drift, normal tone, full ROMSensory: intact to light touch equally on both sides, no extinctionCoordination: no dysmetria on FTN or HTS bilaterallyBabinski absent Diagnosis, Assessment Plan Free Text DxA P NotesFree text DxA P notes:Patient is an 86 year old female with s/p TAVR who complains of resolving photopsia noted predominantly over night without any new visual deficits. Patient's symptoms appear to be resolving and symptoms have been purely positivein nature, suspicion for embolic phenomenon to retinal arteries is low and she has no clear CELLOPHANE BAG MACHINE OPERATOR findings. If photopsia increase in frequency or scotoma noted by patient would consider ophthalmology evaluation. No further neurology work-up. Photopsia Urinary incontinence- agree with UA- consider bladder scan post void given recent anesthesia. at 1223 RPT #:[id number] OF REPORTKSHajlrjtrehaf1550-46-92S50:50:00G.PDOC2 [id number] for patient kepcYKCADJWBCPWKDM6745-68-69S95:23:58 [facility] 2021-10-18 11:29:00 [id number] [id number]+[id number] WobEe9HzECJ8hRPqaRj+Nn3HKvN3100-60-04A26:29:00 [facility])Cardiology Progress NoteREPORT#:[id number] REPORT STATUS: SignedDATE:10/18/21 TIME: 1129 PATIENT: MALU LAIRD UNIT #: [id number]#: [id number] [address] AGE: 86 SEX: F ATTEND: Chela Blackwell [facility] AUTHOR: Radha Renteria NP * ALL edits or amendments must be made on the electronic/computer document * SubjectiveChief complaint:bruise of chestseeing flash light Patient reports:No: chest pain, shortness of breath. Nursing reports:No: complaints. Comments:Pt is in RA, multiple complaints:-Incontinence - RN reports bladder scan 500mL, inserted chin catheter which pt has apprx +1L at present.- See flashed light intermittent since last night. Denied headache. RN reportsNeuro was consulted, await for their input.- Bruise and tenderness of chest. Dr. Rojas is at bedside, spoke w/ pt and her daughter, the bruise at her midchest likely due to procedure yesterday (echoprobe pressed to able to see her valves during the procedure yesterday; and redness likely due to the patch) and pt is also on Plavix. Tele shows nsr. Her BP is labile SBP 202 to 140's. Objective GeneralVS/I O:24 hour I O ending at 0700: 10/17 1900 / 0700 Intake Total 329.00 Output Total Balance 329.00 Intake, IV 29.00 Intake, Oral 300 Number Voids 3 Patient 78.5 kg Weight Weight Bed scale Measurement Method Vital Signs: Date Time Temp Pulse Resp B/P B/P Pulse O2 O2 Flow FiO2 Mean Ox Delivery Rate 03/ 1526 73 29 125/58 83 98 03/02 1520 70 24 93/46 66 99 03/02 1500 71 21 153/65 94 100 03/02 1400 69 38 160/93 121 98 03/02 1300 68 23 157/70 101 97 03/02 1230 68 20 135/62 89 98 03/02 1132 77 19 190/79 114 99 03/02 1100 65 21 150/67 97 98 03/02 1000 66 21 137/66 95 97 03/02 0930 72 23 143/63 91 99 03/02 0900 77 23 163/82 116 99 03/02 0831 74 21 158/67 96 99 03/02 0800 97.7 68 15 124/60 86 97 0 03/02 0730 71 14 140/65 94 97 03/02 0700 78 18 143/65 94 99 03/02 0602 57 17 177/77 110 98 03/02 0600 51 14 181/71 102 98 03/02 0500 162/72 104 03/02 0500 48 11 167/50 88 98 03/02 0401 138/75 95 03/02 0401 77 30 174/61 106 93 03/02 0400 97.7 Room air 03/02 0300 116/53 76 03/02 0300 48 11 125/40 65 96 03/02 0200 114/55 79 03/02 0200 53 16 129/43 70 93 03/02 0100 111/53 77 03/02 0100 48 14 129/43 70 92 03/02 0015 56 15 134/47 76 98 03/02 0003 51 15 122/43 68 94 03/02 0000 97.4 Room air 03/ 0000 109/54 78 03/02 0000 51 15 126/44 70 92 03/01 2213 58 24 144/49 78 100 03/ 2200 108/54 78 03/01 2200 46 16 127/42 66 100 /5 122/59 85 /2144 51 19 140/45 74 99 03/01 0 115/58 83 /0 54 15 147/44 74 97 /2121 54 13 154/46 77 100 10/18 2115 119/55 77 10/18 2115 55 14 155/46 78 99 10/17 2114 55 16 154/46 78 10/17 2100 121/55 79 10/17 2100 51 14 150/44 74 98 /2036 47 14 123/39 65 100 10/18 2035 114/67 84 10/18 2035 50 16 126/42 68 100 /2031 45 14 122/38 62 100 10/17 2029 46 16 123/39 63 100 10/17 2022 49 15 118/37 61 99 10/18 2019 Nasal 2 cannula 10/17 2014 57 27 132/42 69 100 10/18 2003 Nasal 2 cannula 10/17 2000 Simple 10 mask 10/18 1999 97.5 Nasal 2 cannula 10/18 1999 143/65 94 10/18 1999 64 18 160/53 86 100 PATIENT WEIGHT: Weight (lb): 173Weight (oz): 1.01Weight (kg): 78.500 Medications:Active Meds + DC'd Last 24 HrsHydralazine HCl (APRESOLINE) 10 MG Q6H PRN PRN IV Furosemide (LASIX) 40 MG DAILY PO (DC) Mupirocin (BACTROBAN 2% 22 GM OINTMENT) 1 APPLIC BID NASAL Allopurinol (ZYLOPRIM) 100 MG C BK PO Aspirin (ASPIRIN) 81 MG C BK PO Hydralazine HCl (APRESOLINE) 10 MG ONCE ONE IV (DC) Levothyroxine Sodium (SYNTHROID) 125 MCG DAILY 0600 PO Pantoprazole (PROTONIX) 40 MG DAILY 0600 PO Magnesium Sulfate (MAGNESIUM SULFATE 2GM/SWFI 50ML) 50 ML ONCE ONE IV (DC) Glycopyrrolate (GLYCOPYRROLATE) 0.2 MG ONCE ONE IV (DC) Clopidogrel Bisulfate (Plavix) 75 MG BEDTIME PO Quetiapine Fumarate (SEROqueL) 50 MG BEDTIME PO Sodium Chloride (SODIUM CHLORIDE 0.9%) 1,000 ML BOLUS ONCE ONE IV (DC) Dopamine HCl/Dextrose (DOPamine 400MG/D5W 250ML) 250 ML ASDIR IV Dopamine HCl/Dextrose (DOPamine 400MG/D5W 250ML) 250 ML .STK-MED ONE IV (DC) Protamine Sulfate (PROTAMINE SULFATE) 0 .STK-MED ONE IV (DC) Protamine Sulfate (PROTAMINE SULFATE) 0 .STK-MED ONE IV (DC) Acetaminophen (TYLENOL) 650 MG Q6H PRN PRN PO Atropine Sulfate (ATROPINE SULFATE 0.1MG/ML SYR) 0.5 MG ASDIR PRN IV Docusate Sodium (COLACE) 100 MG BID PRN PO Hydralazine HCl (APRESOLINE) 10 MG Q6H PRN PRN IV Ondansetron HCl (ZOFRAN) 4 MG Q6H PRN PRN IV Sodium Chloride (SODIUM CHLORIDE 0.9%) 500 ML ASDIR PRN IV Iopamidol (ISOVUE-370 200ML) 200 ML .STK-MED ONE IV (DC) Propofol (DIPRIVAN 200MG/20ML INJECTION) 20 ML .STK-MED ONE IV (DC) Midazolam HCl (VERSED) 0 .STK-MED ONE .ROUTE (DC) Zolpidem Tartrate (AMBIEN) 10 MG BEDTIME PRN PRN PO Acetaminophen (TYLENOL EXTRA STRENGTH) 1,000 MG PREOP ONCALL PO (CKD) Lactated Ringer's (LACTATED RINGERS) 1,000 ML PREOP ONCALL IV Lidocaine HCl (LIDOCAINE HCL/PF) 2 ML PREOP ONCALL LOCAL Lidocaine HCl (LIDOCAINE HCL/PF) 2 ML PREOP ONCALL LOCAL Sodium Chloride (SODIUM CHLORIDE 0.9%) 500 ML PREOP ONCALL IV Sodium Chloride (SODIUM CHLORIDE 0.9%) 500 ML PREOP ONCALL IV Sodium Chloride (SODIUM CHLORIDE 0.9%) 1,000 ML PREOP ONCALL IV Sodium Chloride (SODIUM CHLORIDE) 5 ML ASDIR PRN IV Sodium Chloride (SODIUM CHLORIDE) 10 ML ASDIR PRN IV Sodium Chloride (SODIUM CHLORIDE 0.9%) 250 ML ASDIR PRN IV Status post:10/17 TAVR Physical ExamGeneral appearance: alert, awake, oriented, pleasant, no respiratory distressHead/Eyes: atraumatic, clear corneaENT: moist mucosal membranesNeck: no JVDCardiovascular: CV assessment: regular rate and rhythm, no heave, no murmurRespiratory: decreased breath sounds, no distressAbdomen: soft, non-tender, normal bowel sounds, no distentionGenitourinary: chin, urineUpper extremity: UE assessment: normal capillary refill, normal temperature, no edemaLower extremity: LE assessment: normal temperature, no edemaNeuro/CELLOPHANE BAG MACHINE OPERATOR: alert, normal speechSkin: bruise at midsternal -tenderness w/ palpitation.Wound/incision: Location:right groin - soft, no hematoma.Psychiatry: anxious ResultsFindings/Data:Laboratory Tests 10/17 1646 Blood Gas ABG Hematocrit (33.0 - 45.0 %) 27 L ABG Hemoglobin (11.0 - 15.0 G/DL) 9.1 L VBG pH (7.33 - 7.45) 7.308 L VBG pCO2 (43 - 47 mmHg) 43.6 VBG pO2 (10 - 50 mmHG) 49.9 VBG HCO3 (22 - 27 MMOL/L) 21.9 L POC VBG Total CO2 23.2 VBG O2 Saturation (60 - 80 %) 81.2 H VBG Base Excess (-4.0 - 4.0 MMOL/L) -4.2 L Sodium (134 - 147 MEQ/L) 144 Potassium (3.4 - 5.0 MEQ/L) 4.0 Chloride (100 - 108 MEQ/L) 111 H Ionized Calcium (1.12 - 1.32 MMOL/L) 1.24 Lactic Acid (0.9 - 1.7 mmol/l) 0.9 Laboratory Tests 10/17 10/18 1646 0400 Chemistry Sodium (134 - 147 mEq/L) 144 Potassium (3.4 - 5.0 mEq/L) 3.9 Chloride (100 - 108 mEq/L) 113 H Carbon Dioxide (21 - 33 mEq/l) 21 Anion Gap (0 - 20) 14 BUN (7 - 18 mg/dL) 20 H Creatinine (0.6 - 1.3 mg/dL) 0.9 POC Creatinine (0.6 - 1.0 mg/dL) 1.2 H Glomerular Filtr Rate (70 - 80) 59.2 L Glucose (70 - 110 mg/dL) 102 POC Glucose (mg/dL) (MG/DL) 136 Calcium (8.0 - 10.5 mg/dL) 8.2 Magnesium (1.80 - 2.40 mg/dL) 1.70 L Total Bilirubin (0.0 - 1.0 mg/dL) 0.30 AST (15 - 37 IUnit/L) 30 ALT (30 - 65 IUnit/L) 9 L Total Alk Phosphatase (20 - 125 IUnit/L) 71 Total Protein (6.4 - 8.2 g/dL) 5.9 L Albumin (3.4 - 5.0 g/dL) 2.90 L Laboratory Tests 10/17 1643 Coagulation Activated Coag Time (74 - 137 SEC) 315 H Laboratory Tests 10/17 10/17 10/18 1900 2245 0400 Hematology WBC (4.5 - 11.0 x10 3/uL) 7.5 RBC (3.54 - 5.02 x10 6/uL) 3.14 L Hgb (11.0 - 15.0 g/dL) 8.2 L 8.1 L 8.0 L Hct (33.0 - 45.0 %) 27.0 L 26.3 L 25.5 L MCV (81.0 - 99.0 fL) 81.2 MCH (27.0 - 33.0 pg) 25.5 L MCHC (33.0 - 37.0 g/dL) 31.4 L RDW (11.5 - 14.5 %) 17.3 H Plt Count (150 - 400 x10 3/uL) 147 L MPV (7.0 - 9.0 fL) 10.7 H Neut % (Auto) (56.0 - 77.0 %) 74.5 Lymph % (Auto) (14.0 - 32.0 %) 16.6 Yates % (Auto) (4.8 - 9.0 %) 8.5 Eos % (Auto) (0.3 - 3.7 %) 0.0 L Baso % (Auto) (0.0 - 2.0 %) 0.1 Neut # (Auto) (2.0 - 7.6 x10 3/uL) 5.55 Lymph # (Auto) (1.0 - 3.8 x10 3/uL) 1.24 Yates # (Auto) (0.1 - 0.8 x10 3/uL) 0.63 Eos # (Auto) (0.0 - 0.2 x10 3/uL) 0.00 Baso # (Auto) (0.0 - 0.2 x10 3/uL) 0.01 Abs Immat Gran (auto) (0.00 - 0.03 x10 3/uL) 0.02 Add Manual Diff NO Immature Gran % (0.0 - 2.0 %) 0.3 Nucleated RBC % (0 - 0 %) 0.3 H Nucleated RBCs # (Man) (0.0 - 0.1 x10 3/uL) 0.02 Laboratory Tests 10/18 1200 Urines Urine Color (YEL/STRAW) STRAW Urine Appearance (CLEAR) CLEAR Urine pH (5.0 - 7.0) 5.0 Ur Specific [place] (1.005 - 1.030) 1.015 Urine Protein (NEGATIVE) NEGATIVE Urine Glucose (UA) (NEGATIVE) NEGATIVE Urine Ketones (NEGATIVE) NEGATIVE Urine Blood (NEGATIVE) NEGATIVE Urine Nitrite (NEGATIVE) NEGATIVE Urine Bilirubin (NEGATIVE) NEGATIVE Urine Urobilinogen (0.2 - 1.0 mg/dL) 0.2 Ur Leukocyte Esterase (NEGATIVE) NEGATIVE Urine RBC (0 - 3 RBC/HPF) 0-3 Urine WBC (0 - 3 WBC/HPF) 0-3 Ur Squamous Epith Cells (NONE SEEN /HPF) 0-5 Urine Bacteria (NONE SEEN /HPF) TRACE Urine Mucus (NONE SEEN /LPF) TRACE Laboratory Tests 10/18 0400 Chemistry Magnesium (1.80 - 2.40 mg/dL) 1.70 L Results: labs reviewed, vital signs reviewed, vital signs stable, rhythm personally rev'd, current med profile rev'dTelemetry Interpretation:nsr Diagnosis, Assessment PlanPlan discussed with: patient, daughter, nurse Free Text DxA P NotesFree Text DxA P Notes:1. Severe symptomatic AAS: S/p successful ERICK, Modi Sapien3, 23mm valve. Patient arteriotomy site on the right common femoral artery was secured by [place] there was marked extravasation and we applied pressure and we did angioplasty and tamponade the bleed with good hemostasis. We will monitor the patient in CCU, get echocardiogram in the morning and anticipate discharge tomorrow. - Severe symtomatic . s/p TAVR Modi' delphine S3, [address] Rojas discussed echo result w/ pt and her daughter, EF normal 60-64% and valve seated well in Aortic valve position. Cont ASA and Plavix x 6 months then ASA only later. - Potopsia. Per neuro. No further workup. Thank you for input. - Urinary incontience. - Hypomagnesia. Replaced. Per IM. at 1601 at 0755 RPT #:[id number] OF REPORTPRProgress [id number]:29:00G.[id number] able for patient [id number]:01:24 [facility] 2021-10-18 10:27:00 [id number] /8k6/Whh/[id number]:[id number] [id number] [place] [id number] PATIENT NAME: MALU LAIRD ADMIT DATE: 10/17/21ACCOUNT NO: [id number] ROOM NO: [id number] AGE: 86 REPORT TYPE: OPERATIVE REPORT SEX: F ADMITTING PHYSICIAN:Chela Blackwell MD ATTENDING PHYSICIAN:Chela Blackwell MD OPERATION DATE: 10/17/2021 PROCEDURES PERFORMED: Transcatheter aortic valve replacement using 23-mm SapienS3 Ultra +1 mL via right femoral artery access. INDICATIONS: Severe symptomatic aortic valve stenosis. PRIMARY OPERATORS: Dr. Marquez Bey. ELL TEACHER: Moises Rojas MD. PRIMARY SURGEON: Dr. Blackwell. ACCESS:1. Right femoral artery, 14-Nicaraguan closed with a MANTA closure device.2. Left femoral artery, 6-Nicaraguan closed with 6-[place]icaraguan Angio-Seal.3. Left femoral vein 8-Nicaraguan closed with fqmfak-if-slahn suture. COMPLICATIONS: None. BLEEDING: Less than 50 mL. DESCRIPTION OF PROCEDURE: After risks, benefits, and alternatives wereexplained, the patient agreed to proceed and signed informed consent. Thepatient was brought into the hybrid operating room and monitored anesthesia carewas applied. Then I applied Lidocaine to both groins and using micropuncturekit, ultrasound guidance and fluoroscopy, I accessed right femoral artery, leftfemoral artery, left femoral vein and placed 6-[place] sheath. Then Igave systemic heparin to assure ACT level above 250 and I upgraded the rightfemoral access into 14-Nicaraguan Modi sheath and then I took numbered pigtailthrough the left femoral access into the aortic root balloon-tipped pacemakerwire through the venous access into the RV, pacemaker tested and secured inplace and I took an AL1 catheter through the PICC sheath into the aortic rootwith a straight wire. The valve was crossed and then advanced the AL1 catheterinto the LV and exchanged to a pigtail and simultaneous pressure was measuredand then I took an Amplatz extra-stiff wire into the LV, took the pigtail out, [place]itaen took a 23 mm Delphine S3 Ultra valve added 1 mL, then into the abdominalaorta and then the valve was assembled and then took the valve into the aorticroot across the aortic valve successfully and then under rapid pacing controlsetting and the deployment angle valve was deployed successfully withoutcomplications. Bedside echocardiogram did not show any significant leak, I thenremoved the delivery system and then I took numbered pigtail down to the distalaorta. We removed the Modi sheath and closed with MANTA closure device. PATIENT NAME: MALU LAIRD Limited angiogram of the right groin showed mild extravasation and protamine wasgiven to reverse the heparin and then I took an PHUONG catheter through the leftfemoral artery into the distal aorta and crossed over with a [place] Advantagewire into the right femoral artery and then the right SFA and then exchanged fora short Destination sheath that was placed in the right common iliac artery andthen I took an 8 x 60 mm balloon and tamponade at the area of extravasation for1 minute and then for 30 seconds. Subsequently, I took angiogram extravasation,completely stopped and had good hemostasis. As such, we removed the Destinationsheath and removed the sheath from the left femoral artery and placed 2-QggvpyBpjtf-Kbtn with good hemostasis. Venous sheath was removed and psliknjeowrt-zt-kqtfx suture with good hemostasis. CONCLUSION: Successful transcatheter aortic valve replacement using 23-mmSapien S3 Ultra valve on 1 mL. PLAN: Admit for 24 hours. Obtain echocardiogram tomorrow and we will plan todischarge in the next 24 hours If she continues to be stable. Dictated By: Marquez Bey MD WT: OP:GTELLO/BEL/NTSDD: 10/18/2021 10:27:02DT: 10/18/2021 11:58:34Conf#: [id number]/DID#: [id number] Authenticated by Marquez Bey MD On 10/24/2021 10:42:33 AM at 1042 PATIENT NAME: MALU LAIRD [id number]:58:00G.[id number] lable for patient [id number]:43:06 [facility] 2021-10-18 10:14:00 [id number]:14:00 [facility] ([facility])Structural Heart Post ProgressREPORT#:[id number] REPORT STATUS: SignedDATE:10/18/21 TIME: 1014 PATIENT: MALU LAIRD UNIT #: [id number]#: [id number] [place]OM[place] [facility] [place]DOB: [birth year] AGE: 86 SEX: F ATTEND: Chela Blackwell [facility] AUTHOR: Aguila Boyle * ALL edits or amendments must be made on the electronic/computer document * History of Present Illness HPIReferring prover:Dr Goldstein PCP:PCP: Carlyle Walter MD HPI:Malu Laird is a 86-year-old female with a past medical history that significant for severe aortic stenosis coronary disease, hyperlipidemia, hypertension, who was admitted for elective ERICK procedure by Dr. Bey. Due to his shortness ofbreath on exertion, patient was investigated by her prover. Echo done on 07/27/2021 suggestive of severe with a CONSTANZA 0.9, mean gradient 16.11, jet velocity 4.9, EF 55 to 60%. Coronary angiogram on 08/28/2021 showed stent in theproximal RCA. Due to the severe symptomatic aortic stenosis, patient's profile was discussed in the structural heart conference and patient is deemed a suitable candidate for elective ERICK procedure. Patient STS score calculated at4.5% with NYHA II symptoms. Patient therefore had ERICK procedure with the placement of 23 mm Modi Delphine S3 valve via Transfemoral approach via MAC. Patient tolerated the procedure. Patient has been seen this morning by CV surgery as well as cardiology. Patient reports reproducible chest pain after echo prob to the chest this morning. Dr Rojas notifed. Patient reporting briefstreaks of flashing lights that occurs intermittently. Due to this neurology was consulted. Patient also reports urinary urgency and dysuria. UA requested.. HistoryAdditional medical history:Thyroid problems, ArthritisAdditional surgical history:StentsFamily history:Denies: CAD < 40 yrs old. Additional family history:Positive for heart disease, cancerAlcohol use: Denies EtOH useDrug use: Denies recreational drugsSmoking status: Smoking status for patients 13 years old or older: Never SmokerOther social history: Good social support Medication/Allergy-Vaccine HxMedications:Home Medications: Medication Dose/Rte/Freq Days Qty Entered Last Max Daily Dose Reviewed FUROSEMIDE (LASIX) 40 MG PO DAILY 10/12/21 10/17/21 Strength: 40 MG TAB 1409 0931 ALLOPURINOL (ZYLOPRIM) 100 MG PO DAILY 10/12/21 10/17/21 Strength: 100 MG TAB [address] 40 MG PO DAILY 10/12/21 10/17/21 (PROTONIX) 1409 0931 Strength: 40 MG TAB LEVOTHYROXINE 125 MCG PO DAILY 10/12/21 10/17/21 (SYNTHROID) 1410 0931 Strength: 125 MCG TAB ASPIRIN 81 MG PO DAILY 10/12/21 10/17/21 Strength: 81 MG TAB.CHEW 1410 0931 ZOLPIDEM (AMBIEN) 10 MG PO 10/12/21 10/17/21 Strength: 10 MG TAB BEDTIME PRN PRN 1410 0931 SLEEP QUEtiapine (SEROquel) 50 MG PO BEDTIME 10/12/21 10/17/21 Strength: 50 MG TAB 1411 0931 Current Hospital Medications:Anti-Infective Agents Sig/James Start time Last Medication Dose Route Stop Time Status Admin Cefazolin Sodium 0 .STK-MED ONE 10/17 1455 DC 10/17 (KEFZOL OR ANCEF) .ROUTE 1625 Autonomic Drugs Sig/James Start time Last Medication Dose Route Stop Time Status Admin Glycopyrrolate 0.2 MG ONCE ONE 10/17 2145 DC 10/17 (GLYCOPYRROLATE) IV 10/17 2146 2234 Dopamine HCl/Dextrose 250 ML ASDIR 10/17 1845 AC (DOPamine 400MG/D5W IV 11/16 1844 250ML) Dopamine HCl/Dextrose 250 ML .STK-MED ONE 10/17 1838 DC 10/17 (DOPamine 400MG/D5W IV 1845 250ML) Atropine Sulfate 0.5 MG ASDIR PRN 10/17 1700 AC (ATROPINE SULFATE IV 11/16 1659 0.1MG/ML SYR) Blood Formation,Coagulation Sig/James Start time Last Medication Dose Route Stop Time Status Admin Clopidogrel Bisulfate 75 MG BEDTIME 10/17 2100 AC 10/17 (Plavix) PO 11/16 2059 2104 Protamine Sulfate 0 .STK-MED ONE 10/17 1709 DC (PROTAMINE SULFATE) IV Protamine Sulfate 0 .STK-MED ONE 10/17 1706 DC (PROTAMINE SULFATE) IV Heparin Sodium/ 3,000 ML .STK-MED ONE 10/17 1455 DC 10/17 Sodium Chloride IV 1625 (HEPARIN 2,000 UNITS/ NS 1,000mL) Heparin Sodium/ 1,000 ML .STK-MED ONE 10/17 1455 DC 10/17 Sodium Chloride IV 1625 (HEPARIN 1,000 UNITS/ NS 500ML) Cardiovascular Drugs Sig/James Start time Last Medication Dose Route Stop Time Status Admin Hydralazine HCl 10 MG Q6H PRN PRN 10/18 0930 AC (APRESOLINE) IV 11/17 0929 Hydralazine HCl 10 MG ONCE ONE 10/18 0615 DC 10/18 (APRESOLINE) IV 10/18 0616 0614 Hydralazine HCl 10 MG Q6H PRN PRN 10/17 1700 AC (APRESOLINE) IV 11/16 1659 Lidocaine HCl 0 .STK-MED ONE 10/17 1455 DC 10/17 (LIDOCAINE HCL/PF) .ROUTE 1625 Hydralazine HCl 2 MG PACU Q10MIN PRN PRN 10/17 0730 DC (APRESOLINE) IV 10/17 1528 Labetalol HCl 5 MG PACU Q10MIN PRN PRN 10/17 0730 DC (LABETALOL HCL) IV 10/17 1528 Lidocaine HCl 2 ML PREOP ONCALL 10/12 1445 AC (LIDOCAINE HCL/PF) LOCAL 11/11 2359 Lidocaine HCl 2 ML PREOP ONCALL 10/12 1445 AC (LIDOCAINE HCL/PF) LOCAL 11/11 2359 Central Nervous System Agents Sig/James Start time LastMedication Dose Route Stop Time Status AdminAspirin 81 MG C BK 10/18 0800 AC 10/18 (ASPIRIN) PO 11/17 0759 0847Magnesium Sulfate 50 ML ONCE ONE 10/18 0515 DC 10/18 (MAGNESIUM SULFATE IV 10/18 0714 0519 2GM/SWFI 50ML)Quetiapine Fumarate 50 MG BEDTIME 10/17 2100 AC (SEROqueL) PO 11/16 2059Acetaminophen 650 MG Q6H PRN PRN 10/17 1700 AC 10/18 (TYLENOL) PO 11/16 1659 0849Propofol 20 ML .STK-MED ONE 10/17 1618 DC(DIPRIVAN 200MG/20ML IVINJECTION)Midazolam HCl 0 .STK-MED ONE 10/17 1611 DC (VERSED) .ROUTEZolpidem Tartrate 10 MG BEDTIME PRN PRN 10/17 1600 AC (AMBIEN) PO 11/16 1559Dexmedetomidine HCl 0 .STK-MED ONE 10/17 1507 DC (PRECEDEX) IVFentanyl Citrate 0 .STK-MED ONE 10/17 1507 DC (SUBLIMAZE) .ROUTEMidazolam HCl 0 .STK-MED ONE 10/17 1507 DC (VERSED) .ROUTEFentanyl Citrate 100 MCG PACU Q10MIN PRN PRN 10/17 0730 DC (SUBLIMAZE) IV 10/17 1528Fentanyl Citrate 50 MCG PACU Q10MIN PRN PRN 10/17 0730 DC (SUBLIMAZE) IV 10/17 1528Meperidine HCl 12.5 MG PACU ONCE PRN 10/17 0730 DC (DEMEROL 50MG/ML) IV 10/17 1528Acetaminophen 1,000 MG PREOP ONCALL 10/12 1445 CKD (TYLENOL EXTRA PO 11/11 2359STRENGTH) Diagnostic Agents Sig/James Start time Last Medication Dose Route Stop Time Status Admin Iopamidol 200 ML .STK-MED ONE 10/17 1629 DC 10/17 (ISOVUE-370 200ML) IV 10/17 1630 1629 Electrolytic, Caloric, And Maicol Sig/James Start time Last Medication Dose Route Stop Time Status Admin Furosemide 40 MG DAILY 10/18 0900 DC 10/18 (LASIX) PO 11/17 0859 0847 Sodium Chloride 1,000 ML BOLUS ONCE ONE 10/17 1900 DC 10/17 (SODIUM CHLORIDE IV 10/17 195 1903 0.9%) Sodium Chloride 500 ML ASDIR PRN 10/17 1700 AC (SODIUM CHLORIDE IV 11/16 1659 0.9%) Lactated Ringer's 1,000 ML PREOP ONCALL 10/12 1445 AC (LACTATED RINGERS) IV 11/11 2359 Sodium Chloride 500 ML PREOP ONCALL 10/12 1445 AC (SODIUM CHLORIDE IV 11/119 0.9%) Sodium Chloride 500 ML PREOP ONCALL 10/12 1445 AC (SODIUM CHLORIDE IV 11/119 0.9%) Sodium Chloride 1,000 ML PREOP ONCALL 10/12 1445 AC (SODIUM CHLORIDE IV 11/11 2358 0.9%) Sodium Chloride 5 ML ASDIR PRN 10/12 1445 AC (SODIUM CHLORIDE) IV 11/11 1444 Sodium Chloride 10 ML ASDIR PRN 10/12 1445 AC (SODIUM CHLORIDE) IV 11/11 1444 Sodium Chloride 250 ML ASDIR PRN 10/12 1445 AC (SODIUM CHLORIDE IV 11/11 1444 0.9%) Gastrointestinal Drugs Sig/James Start time Last Medication Dose Route Stop Time Status Admin Pantoprazole 40 MG DAILY 0600 10/18 0600 AC 10/18 (PROTONIX) PO 11/17 0559 0518 Docusate Sodium 100 MG BID PRN 10/17 1700 AC (COLACE) PO 11/16 1659 Ondansetron HCl 4 MG Q6H PRN PRN 10/17 1700 AC (ZOFRAN) IV 11/16 1659 Ondansetron HCl 4 MG PACU ONCE PRN 10/17 0730 DC (ZOFRAN) IV 10/17 1528 Hormones And Synthetic Substit Sig/James Start time Last Medication Dose Route Stop Time Status Admin Levothyroxine Sodium 125 MCG DAILY 0600 10/18 0600 AC 10/18 (SYNTHROID) PO 11/17 0559 0518 Insulin Human Lispro 0 PACU ONCE PRN 10/17 0730 DC (HUMALOG) SUBQ 10/17 1528 Local Anesthetics (Parenteral) Sig/James Start time Last Medication Dose Route Stop Time Status Admin Ropivacaine 150 MG ASDIR PRN 10/17 0730 DC (NAROPIN 0.5% 150 MG/ LOCAL 10/17 1530 30mL) Miscellaneous Therapeutic Agen Sig/James Start time Last Medication Dose Route Stop Time Status Admin Allopurinol 100 MG C BK 10/18 0800 AC 10/18 (ZYLOPRIM) PO 11/17 0759 0847 Skin And Mucous Membrane Agent Sig/James Start time Last Medication Dose Route Stop Time Status Admin Mupirocin 1 APPLIC BID 10/18 0900 AC 10/18 (BACTROBAN 2% 22 GM NASAL 10/22 2101 0847 OINTMENT) Allergies:Coded Allergies:hydromorphone (From DILAUDID) (Severe, ITCHING 10/12/21)Iodinated Contrast Media (Mild, HIVES 09/11/21) Objective Vital SignsNursing documented vitals:Last Documented: Result Date Time Pulse Ox 99 10/18 0930 B/P 143/63 10/18 0930 B/P Mean 91 10/18 0930 Pulse 72 10/18 0930 Resp 23 10/18 0930 O2 Flow Rate 0 10/18 0800 Temp 36.5 10/18 0800 O2 Delivery Room air 10/18 0400 Physical ExamMedications:Active Meds + DC'd Last 24 HrsHydralazine HCl (APRESOLINE) 10 MG Q6H PRN PRN IV Furosemide (LASIX) 40 MG DAILY PO (DC) Mupirocin (BACTROBAN 2% 22 GM OINTMENT) 1 APPLIC BID NASAL Allopurinol (ZYLOPRIM) 100 MG C BK PO Aspirin (ASPIRIN) 81 MG C BK PO Hydralazine HCl (APRESOLINE) 10 MG ONCE ONE IV (DC) Levothyroxine Sodium (SYNTHROID) 125 MCG DAILY 0600 PO Pantoprazole (PROTONIX) 40 MG DAILY 0600 PO Magnesium Sulfate (MAGNESIUM SULFATE 2GM/SWFI 50ML) 50 ML ONCE ONE IV (DC) Glycopyrrolate (GLYCOPYRROLATE) 0.2 MG ONCE ONE IV (DC) Clopidogrel Bisulfate (Plavix) 75 MG BEDTIME PO Quetiapine Fumarate (SEROqueL) 50 MG BEDTIME PO Sodium Chloride (SODIUM CHLORIDE 0.9%) 1,000 ML BOLUS ONCE ONE IV (DC) Dopamine HCl/Dextrose (DOPamine 400MG/D5W 250ML) 250 ML ASDIR IV Dopamine HCl/Dextrose (DOPamine 400MG/D5W 250ML) 250 ML .STK-MED ONE IV (DC) Protamine Sulfate (PROTAMINE SULFATE) 0 .STK-MED ONE IV (DC) Protamine Sulfate (PROTAMINE SULFATE) 0 .STK-MED ONE IV (DC) Acetaminophen (TYLENOL) 650 MG Q6H PRN PRN PO Atropine Sulfate (ATROPINE SULFATE 0.1MG/ML SYR) 0.5 MG ASDIR PRN IV Docusate Sodium (COLACE) 100 MG BID PRN PO Hydralazine HCl (APRESOLINE) 10 MG Q6H PRN PRN IV Ondansetron HCl (ZOFRAN) 4 MG Q6H PRN PRN IV Sodium Chloride (SODIUM CHLORIDE 0.9%) 500 ML ASDIR PRN IV Iopamidol (ISOVUE-370 200ML) 200 ML .STK-MED ONE IV (DC) Propofol (DIPRIVAN 200MG/20ML INJECTION) 20 ML .STK-MED ONE IV (DC) Midazolam HCl (VERSED) 0 .STK-MED ONE .ROUTE (DC) Zolpidem Tartrate (AMBIEN) 10 MG BEDTIME PRN PRN PO Dexmedetomidine HCl (PRECEDEX) 0 .STK-MED ONE IV (DC) Fentanyl Citrate (SUBLIMAZE) 0 .STK-MED ONE .ROUTE (DC) Midazolam HCl (VERSED) 0 .STK-MED ONE .ROUTE (DC) Cefazolin Sodium (KEFZOL OR ANCEF) 0 .STK-MED ONE .ROUTE (DC) Heparin Sodium/Sodium Chloride (HEPARIN 2,000 UNITS/NS 1,000mL) 3,000 ML .STK-MED ONE IV (DC) Heparin Sodium/Sodium Chloride (HEPARIN 1,000 UNITS/NS 500ML) 1,000 ML .STK-MED ONE IV (DC) Lidocaine HCl (LIDOCAINE HCL/PF) 0 .STK-MED ONE .ROUTE (DC) Fentanyl Citrate (SUBLIMAZE) 100 MCG PACU Q10MIN PRN PRN IV (DC) Fentanyl Citrate (SUBLIMAZE) 50 MCG PACU Q10MIN PRN PRN IV (DC) Hydralazine HCl (APRESOLINE) 2 MG PACU Q10MIN PRN PRN IV (DC) Insulin Human Lispro (HUMALOG) 0 PACU ONCE PRN SUBQ (DC) Labetalol HCl (LABETALOL HCL) 5 MG PACU Q10MIN PRN PRN IV (DC) Meperidine HCl (DEMEROL 50MG/ML) 12.5 MG PACU ONCE PRN IV (DC) Ondansetron HCl (ZOFRAN) 4 MG PACU ONCE PRN IV (DC) Ropivacaine (NAROPIN 0.5% 150 MG/30mL) 150 MG ASDIR PRN LOCAL (DC) Acetaminophen (TYLENOL EXTRA STRENGTH) 1,000 MG PREOP ONCALL PO (CKD) Lactated Ringer's (LACTATED RINGERS) 1,000 ML PREOP ONCALL IV Lidocaine HCl (LIDOCAINE HCL/PF) 2 ML PREOP ONCALL LOCAL Lidocaine HCl (LIDOCAINE HCL/PF) 2 ML PREOP ONCALL LOCAL Sodium Chloride (SODIUM CHLORIDE 0.9%) 500 ML PREOP ONCALL IV Sodium Chloride (SODIUM CHLORIDE 0.9%) 500 ML PREOP ONCALL IV Sodium Chloride (SODIUM CHLORIDE 0.9%) 1,000 ML PREOP ONCALL IV Sodium Chloride (SODIUM CHLORIDE) 5 ML ASDIR PRN IV Sodium Chloride (SODIUM CHLORIDE) 10 ML ASDIR PRN IV Sodium Chloride (SODIUM CHLORIDE 0.9%) 250 ML ASDIR PRN IV General appearance: alert, awake, orientedCardiovascular: BP/pulses equal bilat., normal heart sounds, regular rate rhythmRespiratory: clear to auscultation, symmetric expansion, no distressAbdomen: soft, non-tender, normal bowel soundsExtremities: dry, moves allNeuro/CELLOPHANE BAG MACHINE OPERATOR: alert, oriented X 3 Diagnosis, Assessment Plan Diagnosis, Assessment PlanProblem List/A P: 1. Severe aortic stenosis 2. Coronary artery disease 3. Hypertension 4. Hyperlipidemia Free Text A P:Symptomatic severe aortic stenosis * Patient is status post transcatheter aortic valve implantation (ERICK) with a 26 mm [employer] sapein ultra valve via -transfemoral approach under MAC.* Patient tolerated procedure without any postoperative complications* Reports reproducible CP and redness to chest. Dr Rojas aware-Likely musculoskeletal* Patient is currently hemodynamically stable.* Patients bilateral groin incision is CDI, without hematoma, no signs of bleeding or infection.* Post op echo reviewed by Data Designer today suggestive of a normal-appearing bioprosthetic valve in the aortic position.* Patient with complaints of photopsia- Per Neuro- Resolving and no further neuro work-up indicated.* Reports urinary urgency/Frequency- plan to bladder scan and straight cath if needed. UA requested* Dual antiplatelet therapy continued with aspirin and Plavix.* Mag repleted* Close monitoring continued.* Patient should get up from bed and ambulate.* Discharge planning Orders: Procedure Date/time Status UA WITH CULTURE IF INDICATED 10/18 1202 Active Activity 10/18 0924 Active MAGNESIUM 10/18 0400 Complete at 0909 RPT #:[id number] OF REPORTPRProgress [id number]:14:00G.[id number] able for patient [id number]:10:13 [facility] 2021-10-18 08:15:00 [id number]+ PQr[id number]:15:16625 [address] [place], [place] [address] PATIENT NAME: MALU LAIRD ADMIT DATE: 10/17/21ACCOUNT NO: [id number] ROOM NO: [id number] AGE: 86 REPORT TYPE: eECHOCARDIOGRAM REPORT SEX: F ADMITTING PHYSICIAN:Chela Blackwell MD ATTENDING PHYSICIAN:Chela Blackwell MD *[address], [place] [address]Qyasy: [phone]: [phone] Limited Transthoracic Echocardiogram Patient: Evangelina LairdaStudy Date: 10/17/2021 BP: 118 / 67 Location: [place]: [id number] : 1935 Age: 86 Height: 65 in / 165.1 cmAccession#: [id number] Gender: F Weight: 164.7 lb / 74.8 kgBMI/BSA: 27.5 kg/m 2 / 1.87 m 2 *Ordering Physician: * Camryn GavinInterpreting Physician: * Bertrand Rojas MD*Manager Nc: * Teri Rowland Indications: TAVR. Study data: Transthoracic echocardiogram, limited study. Procedure:Transthoracic echocardiography was performed. Image quality wasadequate. Limited 2D and limited spectral Doppler. Location:Catheterization laboratory. Patient status: Outpatient. Patient roomnumber: 3. Study status: Routine. Rhythm: Normal sinus rhythm. Findings Left ventricle: The cavity size is normal. Wall thickness is normal.Systolic function is normal. The estimated ejection fraction is 60-64%.Wall motion is normal; there are no regional wall motion abnormalities.Doppler parameters are consistent with abnormal left ventricularrelaxation (grade 1 diastolic dysfunction).Right ventricle: The cavity size is normal. Systolic function isPATIENT NAME: MALU LAIRD normal. Systolic pressure is within the normal range.Left atrium: The atrium is normal in size.Right atrium: The atrium is normal in size.Aorta: Aortic root: The aortic root is normal in size.Aortic valve: The valve is structurally normal. The valve istrileaflet.Pre TAVR: The LVOT diameter is 2 cm. The peak gradient is 125.1 mmHg.The mean gradient is 81.2 mmHg. The LVOT VTI is 30.5 cm. The AV VTI is143 cm. The aortic valve area is 0.4 cm 2. The peak jet velocity is 5.6m/sec. There is severe aortic stenosis.Post TAVR: There is a Modi DELPHINE 3, 23 mm transcatheter valve thatis well seated in the aortic valve position. The LVOT diameter is 2 cm.The peak aortic gradient is 35.8 mmHg. The mean aortic gradient is 19.2mmHg. The LVOT VTI is 33.5 cm. The AV VTI is 58.8 cm. The aortic valvearea is 1.4 cm 2. There is no perivalular leak. There is no evidence ofstenosis. There is no regurgitation.Mitral valve: The valve is structurally normal. There is noevidence of stenosis. There is mild regurgitation.Tricuspid valve: Estimated right ventricle systolic pressure is 27.43mmHg. The valve is structurally normal. There is mild regurgitation.Pulmonic valve: The valve is structurally normal. There is noregurgitation.Pericardium: There is no pericardial effusion.Pulmonary arteries:The main pulmonary artery is normal-sized.Systemic veins:Inferior vena cava: The vessel is normal in size. Measurements Left ventricle Value Ref MYRIAM, LAX 5.4 cm 3.8 - 5.2 ESD, LAX 3.7 cm 2.2 - 3.5 ESD/bsa, LAX 2.0 cm/m 2 1.3 - 2.1 FS, LAX 32 % 27 - 45 ESD/bsa major ax, A4C 3.3 cm/m 2 --------- MYRIAM/bsa minor ax, A4C 3.3 cm/m 2 --------- MYRIAM major ax, A2C 7.8 cm --------- ESD major ax, A2C 6.7 cm --------- MYRIAM/bsa major ax, A2C 4.2 cm/m 2 --------- ESD/bsa major ax, A2C 3.6 cm/m 2 --------- PW, ED 0.7 cm 0.6 - 0.9 IVS/PW, ED 1.74 --------- EF 60 % 54 - 74 LVOT Value Ref Diam, S 1.95 cm --------- Area 3.0 cm 2 --------- Peak courtney, S 1.42 m/sec --------- Mean courtney, S 0.97 m/sec --------- VTI, S 33.5 cm --------- Peak grad, S 8 mm Hg --------- Mean grad, S 4 mm Hg ---------PATIENT NAME: MALU LAIRD SV 100 ml --------- SV/bsa 53 ml/m 2 --------- Ventricular septum Value Ref IVS, ED 1.1 cm 0.6 - 0.9 Left atrium Value Ref Vol/bsa, ES, 1-p A4C 30 ml/m 2 11 - 40 Vol, ES, 2-p 68 ml --------- Vol/bsa, ES, 2-p 36 ml/m 2 16 - 34 Vol/bsa, ES, A/L 32 ml/m 2 16 - 34 AP dim, ES MM 4.3 cm 2.7 - 3.8 LA/Ao root ratio, MM 2.58 --------- Right atrium Value Ref Area, ES 13 cm 2 10 - 18 Aortic valve Value Ref Leaflet sep, MM 0.71 cm --------- Peak v, S 2.99 m/sec --------- Mean v, S 2.02 m/sec --------- VTI, S 58.8 cm --------- Mean grad, S 19.2 mm Hg --------- Peak grad, S 35.8 mm Hg --------- LVOT/AV, VTI ratio 0.57 --------- CONSTANZA, VTI 0.70 cm 2 --------- LVOT/AV, Vpeak ratio 0.47 --------- CONSTANZA, Vmax 0.74 cm 2 --------- Mitral valve Value Ref Peak E 0.82 m/sec --------- Peak A 1.24 m/sec --------- Decel time 221 ms --------- PHT 106 ms --------- Peak grad, D 2.7 mm Hg --------- Peak E/A ratio 0.66 --------- MVA, PHT 2.1 cm 2 --------- Tricuspid valve Value Ref TR peak v 2.09 m/sec <=2.8 Peak RV-RA grad, S 17 mm Hg --------- Aortic root Value Ref Root diam, ED MM 1.68 cm --------- Conclusions Summary: 1. Left ventricle: The cavity size is normal. Wall thickness is normal. Systolic function is normal. The estimated ejection fraction is 60-64%. Wall motion is normal; there are no regional wall motion abnormalities. Doppler parameters are consistent with abnormal leftPATIENT NAME: MALU LAIRD ventricular relaxation (grade 1 diastolic dysfunction).2. Aortic valve: There is a Modi DELPHINE 3, 23 mm transcatheter valve that is well seated in the aortic valve position. The LVOT diameter is 2 cm. The peak aortic gradient is 35.8 mmHg. The mean aortic gradient is 19.2 mmHg. The aortic valve area is 1.4 cm 2. There is no perivalular leak.3. Mitral valve: There is mild regurgitation.4. Tricuspid valve: Estimated right ventricle systolic pressure is 27.43 mmHg. There is mild regurgitation. Prepared and electronically signed by Bertrand Rojas MD10/18/2021 08:14 at 0815 PATIENT NAME: MALU LAIRD :15:0 0G.[id number] for patient nxnwMERKDKWNWEKULV0790-38-56W79:16:22 [facility] 2021-10-18 03:46:00 [id number] 3wvlDimWlJp/oyCEz0j10pE4twn5s Q9eHXifO1IVwFFEtNaSJXgPevvH8606-11-81Y93:46:93770 3-[address] [address] PATIENT NAME: MALU LAIRD ADMIT DATE: 10/17/21ACCOUNT NO: [id number] ROOM NO: [id number] AGE: 86 REPORT TYPE: eELECTROCARDIOGRAM REPORT SEX: F ADMITTING PHYSICIAN:Chela Blackwell MD ATTENDING PHYSICIAN:Chela Blackwell MD Order:[id number] Reason : POST TAVR Test Date/Time Stamp:SatOct 18 2021 03:46:56Blood Pressure : / mmHGVent. Rate : 053 BPM Atrial Rate : 053 BPM P-R Int : 172 ms QRS Dur : 088 ms QT Int : 452 ms P-R-T Axes : 036 009 197 degrees QTc Int : 424 ms Sinus bradycardiaLeft ventricular hypertrophy with repolarization abnormalityAbnormal ECGNo previous ECGs availableConfirmed by MD ROJAS MOLHAM ([id number]) on 10/29/2021 9:36:37 AM Referred By: Camryn Gavin Confirmed by:BERTRAND ROJAS MD at 0936 PATIENT NAME: MALU LAIRD .[id number] AVAvailable for patient ytecWXIWUQDATBBDPR9158-39-85S26:37:12 [facility] 2021-10-17 21:50:00 [id number] CXbY+NP6gbHlY4q5y9RRo4s+G3F1s 3kw4Gt/oSsNp7onlCiDQMsxh1IP2040-83-48C79:50:00 [facility] CenterCardiology ConsultationREPORT#:[id number] REPORT STATUS: SignedDATE:10/17/21 TIME: 2149 PATIENT: MALU LAIRD UNIT #: [id number]#: [id number] [address] AGE: 86 SEX: F ATTEND: Chela Blackwell [facility] AUTHOR: Bertrand Rojas MD * ALL edits or amendments must be made on the electronic/computer document * History of Present Illness HPIRequesting Clinician: Dr. Lacey for consult:Severe ASChief complaint:Dyspnea, severe symptomatic ASPCP:PCP: Carlyle Walter MD HPI:This is an 86-year-old female with past medical history of severe symptomatic AAS also evaluated by the heart team and was felt to be a good candidate for TAVR. Patient came in today for scheduled TAVR and underwent successful implantation for TAVR Modi S3 23 mm valve. Patient tolerated procedure well and be admitted to CCU for overnight observation. History - Adult longitudinalAdditional medical history:Thyroid problems, ArthritisAdditional surgical history:StentsFamily history:Denies: CAD < 40 yrs old. Additional family history:Positive for heart disease, cancerAlcohol use: Denies EtOH useDrug use: Denies recreational drugsSmoking status: Smoking status for patients 13 years old or older: Never SmokerOther social history: Good social supportHome medications:Home Medications:FUROSEMIDE (LASIX) 40 MG PO DAILY ALLOPURINOL (ZYLOPRIM) 100 MG PO DAILY PANTOPRAZOLE DR (PROTONIX) 40 MG PO DAILY LEVOTHYROXINE (SYNTHROID) 125 MCG PO DAILY ASPIRIN 81 MG PO DAILY ZOLPIDEM (AMBIEN) 10 MG PO BEDTIME PRN PRN SLEEP QUEtiapine (SEROquel) 50 MG PO BEDTIME Allergies:Coded Allergies:hydromorphone (From DILAUDID) (Severe, ITCHING 10/12/21)Iodinated Contrast Media (Mild, HIVES 09/11/21) Review of SystemsAdditional notes:As per HPI otherwise negative 12 system points Objective GeneralVS/I O:Vital Signs: Date Time Temp Pulse Resp B/P B/P Pulse O2 O2 Flow FiO2 Mean Ox Delivery Rate 10/17 2121 54 13 154/46 77 100 10/18 2115 119/55 77 10/18 2115 55 14 155/46 78 99 10/17 2114 55 16 154/46 78 10/17 2099 121/55 79 10/17 2099 51 14 150/44 74 98 10/17 2036 47 14 123/39 65 100 10/18 2035 114/67 84 10/18 2035 50 16 126/42 68 100 10/18 2031 45 14 122/38 62 100 10/17 2029 46 16 123/39 63 100 10/17 2022 49 15 118/37 61 99 10/18 2019 Nasal 2 cannula 10/17 2014 57 27 132/42 69 100 10/18 2003 Nasal 2 cannula 10/17 2000 Simple 10 mask 10/18 1999 97.5 Nasal 2 cannula 10/18 1999 143/65 94 10/18 1999 64 18 160/53 86 100 10/17 0937 98.4 69 18 148/67 97 Room air PATIENT WEIGHT: Weight (lb): 172Weight (oz): 2.9Weight (kg): 78.100 Medications:Active Meds + DC'd Last 24 HrsFurosemide (LASIX) 40 MG DAILY PO Allopurinol (ZYLOPRIM) 100 MG C BK PO Aspirin (ASPIRIN) 81 MG C BK PO Levothyroxine Sodium (SYNTHROID) 125 MCG DAILY 0600 PO Pantoprazole (PROTONIX) 40 MG DAILY 0600 PO Glycopyrrolate (GLYCOPYRROLATE) 0.2 MG ONCE ONE IV (DC) Clopidogrel Bisulfate (Plavix) 75 MG BEDTIME PO Quetiapine Fumarate (SEROqueL) 50 MG BEDTIME PO Sodium Chloride (SODIUM CHLORIDE 0.9%) 1,000 ML BOLUS ONCE ONE IV (DC) Dopamine HCl/Dextrose (DOPamine 400MG/D5W 250ML) 250 ML ASDIR IV Dopamine HCl/Dextrose (DOPamine 400MG/D5W 250ML) 250 ML .STK-MED ONE IV (DC) Protamine Sulfate (PROTAMINE SULFATE) 0 .STK-MED ONE IV (DC) Protamine Sulfate (PROTAMINE SULFATE) 0 .STK-MED ONE IV (DC) Acetaminophen (TYLENOL) 650 MG Q6H PRN PRN PO Atropine Sulfate (ATROPINE SULFATE 0.1MG/ML SYR) 0.5 MG ASDIR PRN IV Docusate Sodium (COLACE) 100 MG BID PRN PO Hydralazine HCl (APRESOLINE) 10 MG Q6H PRN PRN IV Ondansetron HCl (ZOFRAN) 4 MG Q6H PRN PRN IV Sodium Chloride (SODIUM CHLORIDE 0.9%) 500 ML ASDIR PRN IV Iopamidol (ISOVUE-370 200ML) 200 ML .STK-MED ONE IV (DC) Propofol (DIPRIVAN 200MG/20ML INJECTION) 20 ML .STK-MED ONE IV (DC) Midazolam HCl (VERSED) 0 .STK-MED ONE .ROUTE (DC) Zolpidem Tartrate (AMBIEN) 10 MG BEDTIME PRN PRN PO Dexmedetomidine HCl (PRECEDEX) 0 .STK-MED ONE IV (DC) Fentanyl Citrate (SUBLIMAZE) 0 .STK-MED ONE .ROUTE (DC) Midazolam HCl (VERSED) 0 .STK-MED ONE .ROUTE (DC) Cefazolin Sodium (KEFZOL OR ANCEF) 0 .STK-MED ONE .ROUTE (DC) Heparin Sodium/Sodium Chloride (HEPARIN 2,000 UNITS/NS 1,000mL) 3,000 ML .STK-MED ONE IV (DC) Heparin Sodium/Sodium Chloride (HEPARIN 1,000 UNITS/NS 500ML) 1,000 ML .STK-MED ONE IV (DC) Lidocaine HCl (LIDOCAINE HCL/PF) 0 .STK-MED ONE .ROUTE (DC) Fentanyl Citrate (SUBLIMAZE) 100 MCG PACU Q10MIN PRN PRN IV (DC) Fentanyl Citrate (SUBLIMAZE) 50 MCG PACU Q10MIN PRN PRN IV (DC) Hydralazine HCl (APRESOLINE) 2 MG PACU Q10MIN PRN PRN IV (DC) Insulin Human Lispro (HUMALOG) 0 PACU ONCE PRN SUBQ (DC) Labetalol HCl (LABETALOL HCL) 5 MG PACU Q10MIN PRN PRN IV (DC) Meperidine HCl (DEMEROL 50MG/ML) 12.5 MG PACU ONCE PRN IV (DC) Ondansetron HCl (ZOFRAN) 4 MG PACU ONCE PRN IV (DC) Ropivacaine (NAROPIN 0.5% 150 MG/30mL) 150 MG ASDIR PRN LOCAL (DC) Lidocaine HCl (XYLOCAINE) 0 .STK-MED ONE .ROUTE (DC) Acetaminophen (TYLENOL EXTRA STRENGTH) 1,000 MG PREOP ONCALL PO (CKD) Lactated Ringer's (LACTATED RINGERS) 1,000 ML PREOP ONCALL IV Lidocaine HCl (LIDOCAINE HCL/PF) 2 ML PREOP ONCALL LOCAL Lidocaine HCl (LIDOCAINE HCL/PF) 2 ML PREOP ONCALL LOCAL Sodium Chloride (SODIUM CHLORIDE 0.9%) 500 ML PREOP ONCALL IV Sodium Chloride (SODIUM CHLORIDE 0.9%) 500 ML PREOP ONCALL IV Sodium Chloride (SODIUM CHLORIDE 0.9%) 1,000 ML PREOP ONCALL IV Sodium Chloride (SODIUM CHLORIDE) 5 ML ASDIR PRN IV Sodium Chloride (SODIUM CHLORIDE) 10 ML ASDIR PRN IV Sodium Chloride (SODIUM CHLORIDE 0.9%) 250 ML ASDIR PRN IV Physical ExamGeneral appearance: alert, awake, orientedHead/Eyes: PERRLAENT: normal noseNeck: no JVDCardiovascular: CV assessment: murmurRespiratory: clear to auscultation, no distressAbdomen: softLower extremity: LE assessment: no cyanosis, no edemaNeuro/CELLOPHANE BAG MACHINE OPERATOR: alert, oriented X 3, normal reflexes, normal speechPsychiatry: normal affect, normal judgment/insight, normal mood ResultsFindings/Data:Laboratory Tests 10/17 164 Blood Gas ABG Hematocrit (33.0 - 45.0 %) 27 L ABG Hemoglobin (11.0 - 15.0 G/DL) 9.1 L VBG pH (7.33 - 7.45) 7.308 L VBG pCO2 (43 - 47 mmHg) 43.6 VBG pO2 (10 - 50 mmHG) 49.9 VBG HCO3 (22 - 27 MMOL/L) 21.9 L POC VBG Total CO2 23.2 VBG O2 Saturation (60 - 80 %) 81.2 H VBG Base Excess (-4.0 - 4.0 MMOL/L) -4.2 L Sodium (134 - 147 MEQ/L) 144 Potassium (3.4 - 5.0 MEQ/L) 4.0 Chloride (100 - 108 MEQ/L) 111 H Ionized Calcium (1.12 - 1.32 MMOL/L) 1.24 Lactic Acid (0.9 - 1.7 mmol/l) 0.9 Laboratory Tests 10/17 1646 Chemistry POC Creatinine (0.6 - 1.0 mg/dL) 1.2 H POC Glucose (mg/dL) (MG/DL) 136 Laboratory Tests 10/17 1643 Coagulation Activated Coag Time (74 - 137 SEC) 315 H Laboratory Tests 10/17 1900 Hematology Hgb (11.0 - 15.0 g/dL) 8.2 L Hct (33.0 - 45.0 %) 27.0 L Diagnosis, Assessment Plan Free Text DxA P NotesFree Text DxA P Notes:1. Severe symptomatic AAS: S/p successful ERICK, Modi S3 23 Mm valve. Patient arteriotomy site on the right common femoral artery was secured by Mant[place] there was marked extravasation and we applied pressure and we did angioplasty and tamponade the bleed with good hemostasis. We will monitor the patient in CCU, get echocardiogram in the morning and anticipate discharge tomorrow. at 2159 RPT #:[id number] OF REPORTPONlzfqdyfsnmw2239-29-42T39:50:00G.PDOC2 [id number] for patient whvqSLGJDFNRPQQWKV2556-10-41R87:59:23 [facility] 2021-10-17 18:53:00 [id number] O8iszwDdTYnwBMjkGkHr8o5TrL91V 29u975HGL+XFurQDUiFo7PauY9q9969-71-61Z99:53:28977 3-[address] [place] [address] PATIENT NAME: MALU LAIRD ADMIT DATE: 10/17/21ACCOUNT NO: [id number] ROOM NO: [facility] AGE: 86 REPORT TYPE: eELECTROCARDIOGRAM REPORT SEX: F ADMITTING PHYSICIAN:Chela Blackwell MD ATTENDING PHYSICIAN:Chela Blackwell MD Order:[id number] Reason : TAVR Test Date/Time Stamp:SatOct 17 2021 18:53:12Blood Pressure : / mmHGVent. Rate : 063 BPM Atrial Rate : 063 BPM P-R Int : 184 ms QRS Dur : 102 ms QT Int : 524 ms P-R-T Axes : 038 010 229 degrees QTc Int : 536 ms Normal sinus rhythmLeft ventricular hypertrophy with repolarization abnormalityPosterior infarct , age undeterminedProlonged QTAbnormal ECGConfirmed by MD ROJAS MOLHAM ([id number]) on 10/29/2021 9:36:30 AM Referred By: Camryn Gavin Confirmed by:BERTRAND ROJAS MD at 0936 PATIENT NAME: LAIRD,MALU .[id number] AVAvailable for patient nbweNGFRFMZEGCEDHC3612-39-66P42:37:02 [facility] 2021-10-17 18:24:00 [id number] zdcxAGoHN/8djKPr/LadPpvDmgF7u eklGB1IH9VRtHH1dYMIKvP5RGde6054-82-50I04:24:53378 [address] [place] [address] PATIENT NAME: MALU LAIRD ADMIT DATE: 10/17/21ACCOUNT NO: [id number] ROOM NO: [facility] AGE: 86 REPORT TYPE: eELECTROCARDIOGRAM REPORT SEX: F ADMITTING PHYSICIAN:Chela Blackwell MD ATTENDING PHYSICIAN:Chela Blackwell MD Order:[id number] Reason : S/P TAVR Test Date/Time Stamp:SatOct 17 2021 18:24:25Blood Pressure : / mmHGVent. Rate : 050 BPM Atrial Rate : 050 BPM P-R Int : 172 ms QRS Dur : 102 ms QT Int : 560 ms P-R-T Axes : 037 011 241 degrees QTc Int : 510 ms Sinus bradycardia with premature atrial complexesLeft ventricular hypertrophy with repolarization abnormalityProlonged QTAbnormal ECGWhen compared with ECG of 12-OCT-2021 13:57,Significant changes have occurredConfirmed by MD CRYSTAL, BERTRAND ([id number]) on 10/29/2021 9:36:13 AM Referred By: Camryn Gavin Confirmed by:BERTRAND ROJAS MD at 0936 PATIENT NAME: MALU LAIRD .[id number] AVAvailable for patient nnlaVGFVZMNBUFKVKM1821-35-89A71:36:32 [facility] 2021-10-17 17:38:00 [id number]+ sFuMNf/2SjY+Dw9C6nRVwcg/x92FI ac1WNB95Rlbx1FXlhEfrhBrT6R46207-78-03P08:38:00 [facility] ([facility])DT Operative NoteREPORT#:[id number] REPORT STATUS: SignedDATE:10/17/21 TIME: 1738 PATIENT: MALU LAIRD UNIT #: [id number]#: [id number] [address] AGE: 86 SEX: F ATTEND: Camryn Gavin [facility] AUTHOR: Chela Blackwell MD * ALL edits or amendments must be made on the electronic/computer document * Operative Report Operative NoteNote:Preoperative diagnosis: Severe symptomatic aortic stenosis Postoperative diagnosis: Severe symptomatic aortic stenosis Procedure: 1.Transcatheter aortic valve replacement (TAVR) utilizing # 23 Modi's Delphine S3 Ultra pericardial valve via transfemoral approach with MAC. 2. Ascending aortogram 3. Placement of temporary pacing wire 4. Manta closure of right common femoral artery 5. 6-[place] Angioseal closure of the left femoral artery Surgeon: Thuan Blackwell MD Data Designer: MD Tony Kessler MD Anaesthesia: MAC Estimated blood loss: 20 cc Indication: Ms Laird is a pleasant 86-year-old, male with severe symptomatic aortic stenosis. She was investigated and was found to be a suitable candidate for TAVR. After do preop counseling she was brought to the hybrid room today for TAVR Findings: 1. Severe calcification of aortic valve 2. The delivery system was passed without difficulty into the left ventricular outflow tract for deployment. 3. A 23 mm Delphine S3 Ultra valve was required 4. Post replacement TTE revealed no paravalvular leak 5. Patient had good Doppler signals in both lower extremities following the procedure. Procedure in detail: Further details will be dictated by Dr. Bey as he was the construction materials tester. The patient was brought into the hybrid room. A timeout procedure was performed which confirmed the patient's name medical record number and the procedure to be performed. The patient was placed supine on the operating table.The chest, abdomen, and groins were prepped and draped in standard surgical fashion. 1% lidocaine was used to anesthetize the area over the right femoral artery, and left femoral artery and vein. After placement of appropriate sheath patient was heparinized, to maintain and a ACT more than 250 second. An aortic root shot was performed, noting the optimal angle for deployment of the valve. This confirmed the position already determined by CT angiogram 3D reconstruction. Subsequently, the 23 mm Modi Delphine S3 Ultra transcatheter valve was placed into the sheath in the right femoral artery and brought up through the aortic valve and placed in the correct position. This was confirmedby the heart valve team. Subsequently the rapid ventricular pacing was performed and the valve was deployed in the aortic annulus appropriately. The Cordis and sheath were pulled back. Postplacement transthoracic echo revealed good placement of the valve with no aortic insufficiency. A pigtail catheter was placed into the left ventricle and simultaneous LV and aortic pressures wereobtained. The mean gradient was minimal. Subsequently, the sheaths were removed, the right common femoral artery was closed with a Manta device and the left common femoral artery was closed using Angioseal device. Sterile dressingswere applied. I was present as co-surgeon in conjunction with Dr Bey and Dr. Coon. will dictate his portion in detail. The patient tolerated the procedure well and was taken to the coronary care unit in stable condition. Sponge, needle and instrument count were correct. at 1741 RPT #:[id number] OF REPORTOPOperative cgskgx2803-08-50U03:38:00G.GXLC40959603-8583DJSjv ilable for patient llaoQRZKRWWTQBONFD2539-45-31K46:42:09 [facility] 2021-10-17 09:08:00 [id number] wSAwu9KZbmMZJ2qz2MqARfxyFCD+F xhYjq5K4EYo72puLqIVewnlJlLt9730-22-10E96:08:00 [facility] ConsultREPORT#:[id number] REPORT STATUS: SignedDATE:10/17/21 TIME: 09 PATIENT: MALU LAIRD UNIT #: [id number]#: [id number] ROOM/BED: [facility]-1DOB: [birth year] AGE: 86 SEX: F ATTEND: Chela Blackwell [facility] AUTHOR: Fox Clark NP * ALL edits or amendments must be made on the electronic/computer document * Fox Clark 10/17/21 0908:History of Present Illness HPIChief complaint:Aortic stenosisPCP:PCP: Carlyle Walter MD Requesting ClinicianDr. CarlosHPI:Ms. Laird is a very pleasant 86-year-old female with aortic stenosis being followed by her prover with serial scans. Most recent echocardiogram showed severe aortic stenosis with a peak gradient of 96 and a mean gradient of 57 mmHg. Patient acknowledges SOB however denies any orthopnea, palpitation, syncope or near syncope, ankle edema or paroxysmal nocturnal dyspnea. CV surgeryconsulted to evaluate the need for intervention on her aortic valveInformant/Historian:Dr. Bey HistoryAdditional Medical History:Thyroid problems, ArthritisAdditional Surgical History:StentsAdditional Family HistoryPositive for heart disease, cancerAlcohol Use Denies EtOH useDrug Use Denies recreational drugsSmoking status: Smoking status for patients 13 years old or older: Never SmokerOther Social History Good social supportAllergies:Coded Allergies:hydromorphone (From DILAUDID) (Severe, ITCHING 10/12/21)Iodinated Contrast Media (Mild, HIVES 09/11/21) Review of Systems Review of SystemsConstitutional:Denies: chills, fatigue, fever. Skin:Denies: rash, swelling. Eyes:Denies: redness, discharge. Respiratory:Denies: SOB, wheezing. Cardiovascular:Denies: chest pain, DE [place] CRUZ (dyspnea on exertion). GI:Denies: diarrhea, nausea, vomiting. :Denies: dysuria, hematuria. Objective Physical ExamVS/I O:PATIENT WEIGHT: Weight (lb): 168Weight (oz): 10.46Weight (kg): 76.500 General appearance: alert, awake, orientedHEENT: pupils reactive to light, sclera clearNeck: full range of motion, non-tenderCardiovascular: normal heart sounds, regular rate rhythm Murmur:Systolic 4/6Respiratory: aerating well, clear to auscultationAbdomen: soft, non-tenderGenitourinary: urineExtremities: dry, moves allMusculoskeletal: full range of motionNeuro/CELLOPHANE BAG MACHINE OPERATOR: alert, oriented X 3Skin: dry, intact Diagnosis, Assessment PlanFree Text A P:Ms. Laidr is a very pleasant 86-year-old female with aortic stenosis being followed by her prover with serial scans. Most recent echocardiogram showed severe aortic stenosis with a peak gradient of 96 and a mean gradient of 57 mmHg. Patient acknowledges SOB however denies any orthopnea, palpitation, syncope or near syncope, ankle edema or paroxysmal nocturnal dyspnea. CV surgeryconsulted to evaluate the need for intervention on her aortic valve Patient seen and examined by Dr. Blackwell. Echo and angio reviewed. She has severe, symptomatic aortic stenosis and will benefit from intervention on her aortic valve. Given her age and other medical problems, she is at higher risk for surgical aortic valve replacement. Her interests would best be served undergoing transcatheter aortic valve replacement(TAVR). She was worked up and her case was presented in the structural heart conference. She was deemed a suitable candidate, for TAVR and has been admitted to the hospital today for thesame Thank you Dr. Gavin for this kind consult Chela Blackwell 10/28/21 0834:Attestations Physician AttestationAgree w/findings plan:I have seen and examined Ms Laird. I agree with the findings and plan as documented by YAZMIN Vázquez. Briefly, 86 YO female with severe . Patient was presented in the structural heart conference and found to be a suitable candidate for TAVR. She is being admitted to the hospital today for the procedure. I have explained the procedure, risk involved, benefit, alternatives and complications to the patient. at 0927 at 0837 [facility] #:[id number] OF REPORTYJNvueneenivti0708-46-04C86:08:00G.PDOC2 [id number] for patient wxjxVNXUYDRZPOMLAE1082-48-30M51:27:53 HCACL 2021-10-12 13:57:00 [id number]WMmx yFMZ0AEOfBFy/[id number] [place] [id number] PATIENT NAME: MALU LAIRD ADMIT DATE: ACCOUNT NO: [id number] ROOM NO: AGE: 86 REPORT TYPE: eELECTROCARDIOGRAM REPORT SEX: F ADMITTING PHYSICIAN:Camryn Gavin MD ATTENDING PHYSICIAN:Camryn Gavin MD Order:[id number] Reason : PRE OP Test Date/Time Stamp:SatOct 12 2021 13:57:25Blood Pressure : / mmHGVent. Rate : 065 BPM Atrial Rate : 065 BPM P-R Int : 176 ms QRS Dur : 090 ms QT Int : 444 ms P-R-T Axes : 054 047 166 degrees QTc Int : 461 ms Normal sinus rhythmLeft ventricular hypertrophy with repolarization abnormalityCannot rule out Septal infarct , age undeterminedAbnormal ECGConfirmed by MD GAVIN OMAR ([id number]) on 10/13/2021 12:37:45 PM Referred By: Camryn Gavin Confirmed by:JI GAVIN MD at 1237 PATIENT NAME: MALU LAIRD .[id number] AVAvailable for patient [id number]:38:06 [facility] 2021-09-12 08:27:00 [id number] qOSPemkmGle4qz[id number] [place] [id number] PATIENT NAME: MALU LAIRD ADMIT DATE: 09/11/21ACCOUNT NO: [id number] ROOM NO: AGE: 86 REPORT TYPE: PULMONARY FUNCTION REPORT SEX: F ADMITTING PHYSICIAN: ATTENDING PHYSICIAN:Marquez Bey MD STUDY DATE: FULL PULMONARY FUNCTION TEST INTERPRETATION SPIROMETRY: FVC is 140% of predicted, FEV1 is 142% predicted, no response tobronchodilator, ratio of 75 and normal. Total lung capacity is 111% and RV 87% and DLCO is 81%. FULL PULMONARY FUNCTION TEST: Within normal limits. There is no obstructive orrestrictive impairment. Dictated By: Oli Bernal MD WT: PFT:G.CPS/BANDARA/NTSDD: 09/12/2021 08:27:18DT: 09/12/2021 09:35:06Conf#: [id number]/DID#: [id number] Authenticated by OLI BERNAL MD On 09/18/2021 02:08:12 PM at 0208 PATIENT NAME: MALU LAIRD [id number]:35:00G.[id number] [facility] [id number]:08:42 HCACL
[2023-12-11 10:59] LABS: Absolute Eosinophils 0.1 K/uL (0-0.5); Absolute Lymphocytes (CBC) 0.7 K/uL (0.7-4.9); Absolute Monocytes 0.3 K/uL (0.1-1.3); Absolute Neutrophil 3.2 K/uL (1.8-8.0); Basophils % 0.6 % (0-1.3); Hematocrit 18.4 % (36.0-45.0); Lymphocytes % 16.1 % (15.3-44.8); MCH 31.3 pg (27.0-35.0); MCHC 32.6 g/dL (32.0-36.0); MPV 9.1 fL (7.6-11.3); Monocytes % 6.7 % (3.3-12.3); Neutrophils % 74.6 % (41.7-73.7); Nucleated Red Blood Cells % 0.5 % (0-0); Platelets 130 thou/uL (152-406); RBC Red Blood Cell Count 1.91 M/uL (3.86-4.86); Red Cell Distribution Width 22.5 % (12.1-15.2)
[2023-12-11 11:20] LABS: Albumin 3.1 g/dL (3.4-5.0); Albumin/Globulin Ratio 0.8 (1.1-1.8); Anion Gap 8.1 mEq/L (5.0-15.0); Bilirubin Total 0.7 mg/dL (0.2-1.0); Globulin 3.7 g/dL (2.3-3.5); Potassium 4.1 mEq/L (3.5-5.1); Protein, Total 6.8 g/dL (6.4-8.2)
[2023-12-11 11:43] LABS: PTT, Activated Partial Thromb 27.2 SECONDS (24.3-36.9); Protime INR 1.09
[2023-12-11 12:24] LABS: Anisocytosis 2+; Blood Morphology Comment NOTED (NOT SEEN); Hypochromasia 1+; Platelet Estimate DECR; Poikilocytosis 1+; Polychromasia 1+; White Blood Cell Scan OK (OK)
[2023-12-11] MEDS ORDERED: NA CHLORIDE 0.9% 250 ML ONE ×2 (12:38→15:28)
[2023-12-11] MEDS ORDERED: HYDROCODONE/APAP 7.5/325 MG TAB ONE (14:37)
--- NOTE | 2023-12-11 18:28 | EDPHYS ---
Physician Documentation [facility] Name: Agustina Laird Age: 88 yrs Sex: Female : 1935 Arrival Date: 12/11/2023 Time: 10:10 Bed 5 Private MD: Sugey Deleon ED Physician Trey Ruano HPI: 12/10 16:10 This 88 yrs old Female presents to ER via Wheelchair with complaints of Abnormal Lab rt Results. 16:10 Patient presents to the ED with anemia on outpatient labs. Unclear what the level was. rt She has required blood transfusions in the past. Denies any active bleeding, melena, rectal bleeding. States she has been worked up for bleeding for, no bleeding has been found. States that she is fatigued, gets short of breath after walking long distances, denies other acute complaints at this time. Symptoms are moderate in severity, no other aggravating or alleviating factors.. Historical: - Allergies: 10:24 Dilaudid (Hives); iw 10:24 Lovastatin (Unknown reaction); iw - PMHx: 10:24 Arthritis; CAD; Depression; GERD; Gout; Hypertension; Hypothyroidism; iw - Immunization history:: Client reports receiving the 2nd dose of the Covid vaccine, Flu vaccine is up to date. - Infectious Disease History:: Denies. - Social history:: Smoking status: Patient denies any tobacco usage or history of. - Family history:: not pertinent. ROS: 16:10 Cardiovascular: Negative for chest pain, palpitations, and edema, Abdomen/GI: Negative rt for abdominal pain, nausea, vomiting, diarrhea, and constipation, MS/Extremity: Negative for injury and deformity, Skin: Negative for injury, rash, and discoloration, Neuro: Negative for headache, weakness, numbness, tingling, and seizure, Psych: Negative for depression, anxiety, suicide ideation, homicidal ideation, and hallucinations, 16:10 Constitutional: Positive for fatigue, Negative for fever, 16:10 Respiratory: Positive for shortness of breath, Negative for cough, Exam: 16:10 Chest/axilla: Normal chest wall appearance and motion. Nontender with no deformity. rt No lesions are appreciated. Cardiovascular: Regular rate and rhythm with a normal S1 and S2. No gallops, murmurs, or rubs. Normal PMI, no JVD. No pulse deficits. Respiratory: Lungs have equal breath sounds bilaterally, clear to auscultation and percussion. No rales, rhonchi or wheezes noted. No increased work of breathing, no retractions or nasal flaring. Abdomen/GI: Soft, non-tender, with normal bowel sounds. No distension or tympany. No guarding or rebound. No evidence of tenderness throughout. Skin: Warm, dry with normal turgor. Normal color with no rashes, no lesions, and no evidence of cellulitis. MS/ Extremity: Pulses equal, no cyanosis. Neurovascular intact. Full, normal range of motion. Neuro: Awake and alert, GCS 15, oriented to person, place, time, and situation. Cranial nerves II-XII grossly intact. Motor strength 5/5 in all extremities. Sensory grossly intact. Cerebellar exam normal. Normal gait. Psych: Awake, alert, with orientation to person, place and time. Behavior, mood, and affect are within normal limits. 16:10 Constitutional: The patient appears Pale, no acute distress 16:10 Eyes: Pale conjunctiva. Vital Signs: 10:22 BP 135 / 42; Pulse 70; Resp 16; Temp 97.2; Pulse Ox 95% on R/A; Weight 71.21 kg; Height iw 5 ft. 5 in. ; 13:14 BP 146 / 51; Pulse 70; Resp 17 S; Pulse Ox 98% on R/A; as6 13:22 BP 148 / 55; Pulse 68; Resp 17; Temp 98.3(O); Pulse Ox 99% ; rs5 13:30 BP 142 / 55; Pulse 70; Resp 18; Temp 98.3(O); Pulse Ox 99% on R/A; rs5 13:35 BP 146 / 61; Pulse 71; Resp 17; Temp 98.2(O); Pulse Ox 99% ; rs5 13:40 BP 149 / 62; Pulse 67; Resp 18; Temp 98.3(O); Pulse Ox 99% ; rs5 14:25 BP 143 / 57; Pulse 73; Resp 18; Temp 98.3; Pulse Ox 99% on R/A; rs5 15:35 BP 140 / 50; Pulse 76; Resp 19 S; Pulse Ox 100% on R/A; rs5 15:50 BP 156 / 93; Pulse 78; Resp 20 S; Temp 97.8; Pulse Ox 100% on R/A; as6 18:16 BP 158 / 65; Pulse 75; Resp 20 S; Temp 97.8(TE); Pulse Ox 98% on R/A; as6 10:22 Body Mass Index 26.13 (71.21 kg, 165.1 cm) iw MDM: 10:27 Patient medically screened. rt 12/10 10:35 Order name: CBC with Diff; Complete Time: 12:25 rt 12/10 10:35 Order name: CMP; Complete Time: 12:25 rt 12/10 10:35 Order name: Type And Screen rt 12/10 10:35 Order name: PT-INR; Complete Time: 12:25 rt 12/10 10:35 Order name: Ptt, Activated; Complete Time: 12:25 rt 12/10 11:08 Order name: CBC Smear Scan; Complete Time: 12:25 EDMS 12/10 12:31 Order name: Bb Add On as6 12/10 12:37 Order name: Packed RBC Leukored EDMS 12/10 10:37 Order name: IV Start; Complete Time: 10:37 ll1 Administered Medications: 14:39 Drug: Hydrocodone-Acetaminophen PO (7.5 mg-325 mg) 1 tabs PO once Route: PO; as6 18:30 Follow up: Response: No adverse reaction as6 Disposition Summary: 12/11/23 18:27 Discharge Ordered Notes: Location: Home rt Problem: an acute exacerbation rt Symptoms: have improved rt Condition: Stable rt Diagnosis - Anemia, unspecified rt Followup: rt - With: Private Physician - When: 2 - 3 days - Reason: Discharge Instructions: - Discharge Summary Sheet rt - Anemia rt - Blood Transfusion, Adult rt Forms: - Medication Reconciliation Form rt - Antibiotic Education rt - Prescription Opioid Use rt - Patient Portal Instructions rt - Leadership Thank You Letter rt Signatures: Dispatcher [employer] Clari Wall RN RN iw Katia Colby RN RN ll1 Elias Martinez RN RN as6 Trey Ruano MD MD rt Corrections: (The following items were deleted from the chart) 10:35 10:35 PTT, ACTIVATED+COAG.LAB.BRZ ordered. EDMS EDMS
--- NOTE | 2023-12-11 18:28 | ER ---
Nurse's Notes [facility] Name: Agustina Laird Age: 88 yrs Sex: Female : 1935 Arrival Date: 12/11/2023 Time: 10:10 Bed 5 Private MD: Sugey Deleon Diagnosis: Anemia, unspecified Presentation: 12/10 10:22 Chief complaint: Patient states: went to doctor Saturday and she got a call this morning iw that she needed a blood transfusion. Coronavirus screen: At this time, the client does not indicate any symptoms associated with coronavirus-19. Ebola Screen: Patient negative for fever greater than or equal to 101.5 degrees Fahrenheit, and additional compatible Ebola Virus Disease symptoms Patient denies exposure to infectious person. Patient denies travel to an Ebola-affected area in the 21 days before illness onset. No symptoms or risks identified at this time. Initial Sepsis Screen: Does the patient meet any 2 criteria? No. Patient's initial sepsis screen is negative. Does the patient have a suspected source of infection?. Risk Assessment: Do you want to hurt yourself or someone else? Patient reports no desire to harm self or others. Onset of symptoms was December 11, 2023. 10:22 Method Of Arrival: Wheelchair iw 10:22 Acuity: CAITY 3 iw Triage Assessment: 10:52 Pain: Denies pain. ll1 Historical: - Allergies: 10:24 Dilaudid (Hives); iw 10:24 Lovastatin (Unknown reaction); iw - PMHx: 10:24 Arthritis; CAD; Depression; GERD; Gout; Hypertension; Hypothyroidism; iw - Immunization history:: Client reports receiving the 2nd dose of the Covid vaccine, Flu vaccine is up to date. - Infectious Disease History:: Denies. - Social history:: Smoking status: Patient denies any tobacco usage or history of. - Family history:: not pertinent. Screenin:50 [facility] ED Fall Risk Assessment (Adult) History of falling in the last 3 months, ll1 including since admission No falls in past 3 months (0 pts) Confusion or Disorientation No (0 pts) Intoxicated or Sedated No (0 pts) Impaired Gait Yes (1 pt) Mobility Assist Device Used Yes (1 pt) Altered Elimination No (0 pt) Score/Fall Risk Level 0 - 2 = Low Risk Maintained a safe environment, Hourly rounding (assess needs \T\ fall precautionary measures) done. Abuse screen: Denies threats or abuse. Nutritional screening: No deficits noted. Tuberculosis screening: No symptoms or risk factors identified. Assessment: 10:31 General: Appears in no apparent distress. Behavior is calm, cooperative, appropriate ll1 for age, Reports fatigue for. General: Came in for low HGB labs. Neuro: Reports weakness. 11:36 Reassessment: No changes from previously documented assessment. Patient and/or family ll1 updated on plan of care and expected duration. Pain level reassessed. 12:45 General: Appears in no apparent distress. comfortable, Behavior is calm, cooperative. rs5 Pain: Denies pain. Neuro: Level of Consciousness is awake, alert, obeys commands, Oriented to person, place, time, situation. Neuro: Reports weakness generalized. Cardiovascular: Patient's skin is warm and dry. Rhythm is regular. Respiratory: Airway is patent Respiratory effort is even, unlabored, Respiratory pattern is regular, symmetrical. GI: Abdomen is flat, non-distended, Abd is soft and non tender X 4 quads. : No signs and/or symptoms were reported regarding the genitourinary system. EENT: No signs and/or symptoms were reported regarding the EENT system. Derm: Skin is intact, Skin is pink, warm \T\ dry. Musculoskeletal: Range of motion: intact in all extremities. 13:14 Reassessment: Patient appears in no apparent distress at this time. Patient and/or rs5 family updated on plan of care and expected duration. Pain level reassessed. Patient is alert, oriented x 3, equal unlabored respirations, skin warm/dry/pink. blood product transfusion consent form signed by pt. 13:41 Reassessment: To bedside for blood transfusion started at 1325, rate started at 50 rs5 ml/hr for first 15 min. Remained at bedside for first 15 min, no adverse reaction noted, see blood product transfusion record for more information. 14:45 Reassessment: No changes from previously documented assessment. rs5 14:50 General: pt c/p back pain, medicated as ordered, no other complaints or concerns at as6 this time . 15:36 Reassessment: Blood transfusion complete \T\1535, no adverse reaction noted, . rs5 15:36 Cardiovascular: Patient's skin is warm and dry. Rhythm is regular. Respiratory: rs5 Respiratory effort is even, unlabored, Respiratory pattern is regular, symmetrical. 15:50 General: second unit of blood started. see paper charting for vitals . as6 18:16 Reassessment: Patient appears in no apparent distress at this time. Patient and/or as6 family updated on plan of care and expected duration. Pain level reassessed. Patient is alert, oriented x 3, equal unlabored respirations, skin warm/dry/pink. Vital Signs: 10:22 BP 135 / 42; Pulse 70; Resp 16; Temp 97.2; Pulse Ox 95% on R/A; Weight 71.21 kg; Height iw 5 ft. 5 in. ; 13:14 BP 146 / 51; Pulse 70; Resp 17 S; Pulse Ox 98% on R/A; as6 13:22 BP 148 / 55; Pulse 68; Resp 17; Temp 98.3(O); Pulse Ox 99% ; rs5 13:30 BP 142 / 55; Pulse 70; Resp 18; Temp 98.3(O); Pulse Ox 99% on R/A; rs5 13:35 BP 146 / 61; Pulse 71; Resp 17; Temp 98.2(O); Pulse Ox 99% ; rs5 13:40 BP 149 / 62; Pulse 67; Resp 18; Temp 98.3(O); Pulse Ox 99% ; rs5 14:25 BP 143 / 57; Pulse 73; Resp 18; Temp 98.3; Pulse Ox 99% on R/A; rs5 15:35 BP 140 / 50; Pulse 76; Resp 19 S; Pulse Ox 100% on R/A; rs5 15:50 BP 156 / 93; Pulse 78; Resp 20 S; Temp 97.8; Pulse Ox 100% on R/A; as6 18:16 BP 158 / 65; Pulse 75; Resp 20 S; Temp 97.8(TE); Pulse Ox 98% on R/A; as6 10:22 Body Mass Index 26.13 (71.21 kg, 165.1 cm) iw ED Course: 10:12 Patient arrived in ED. mr 10:12 Sugey Deleon is Private Physician. mr 10:13 Trey Ruano MD is Attending Physician. rt 10:24 Triage completed. iw 10:24 Arm band placed on. iw 10:27 Ktaia Colby, RN is Primary Nurse. ll1 10:27 Patient placed in an exam room, on a stretcher. ll1 10:36 Inserted saline lock: 20 gauge in right forearm, using aseptic technique. Blood ll1 collected. 10:36 No provider procedures requiring assistance completed. Initial lab(s) drawn, by me, ll1 sent to lab. 10:51 Patient has correct armband on for positive identification. Bed in low position. Call ll1 light in reach. Provided Education on: ER procedures and process. Client placed on continuous cardiac and pulse oximetry monitoring. NIBP monitoring applied. 11:36 Warm blanket given. ll1 18:17 IV discontinued, intact, bleeding controlled, No redness/swelling at site. Pressure as6 dressing applied. Administered Medications: 14:39 Drug: Hydrocodone-Acetaminophen PO (7.5 mg-325 mg) 1 tabs PO once Route: PO; as6 18:30 Follow up: Response: No adverse reaction as6 Medication: 10:51 VIS not applicable for this client. ll1 18:15 Blood products: PRBCs X 2 units given. See transfusion record. as6 Intake: 18:14 IV: 1000ml (Blood Products); Total: 1000ml. as6 Outcome: 18:14 Condition: stable as6 18:27 Discharge ordered by MD. rt 18:30 Discharged to home via wheelchair, with family, as6 18:30 Discharge instructions given to patient, Instructed on discharge instructions, follow up and referral plans. Demonstrated understanding of instructions, follow-up care, 18:30 Patient left the ED. as6 Signatures: Ese Frias, Reg Reg mr Clari Rob RN RN iw Katia Colby, RN RN ll1 Elias Martinez RN RN as6 Trey Ruano MD MD rt Frankie Carrasquillo RN RN rs5 Corrections: (The following items were deleted from the chart) 14:47 13:14 Reassessment: Patient appears in no apparent distress at this time. Patient rs5 and/or family updated on plan of care and expected duration. Pain level reassessed. Patient is alert, oriented x 3, equal unlabored respirations, skin warm/dry/pink. as6 15:55 14:50 BP 140 / 50; Pulse 76bpm; Resp 19bpm; Spontaneous; Pulse Ox 100% RA; as6 rs5
[2023-12-11 18:46] VITALS: BP 158/65; TEMP 97.8; O2SAT 98
== END 2023-12-11 18:30 | disposition home or self-care (01) ==
LOC: ER 10:10
PROC: 30233N1 Transfusion of Nonautologous Red Blood Cells into Peripheral Vein, Percutaneous Approach (ICD-10-PCS; principal; 2023-12-11)
DX: D64.9 Anemia, unspecified (principal); Z88.5 Allergy status to narcotic agent; Z88.8 Allergy status to other drugs, medicaments and biological substances; I10 Essential (primary) hypertension
CPT/HCPCS: 85025; 36415; 86900; 86850; 85610; 86902; 86901; 85730; 86920 ×2; 80053; 86922 ×2; 36430; P9016 ×2; J7050 ×2

== ENCOUNTER 2024-02-19 10:56 | Emergency (ER) | payer OTHER ==
--- OUTSIDE RECORDS SUMMARY | 2024-02-19 11:00 | XMS REPORT | Continuity of Care Document ---
Author Name Unknown Address [address] [facility]. [address] [place] [address] [facility] thconnect Address [address] [facility] [address]. [address] [place] [address] Care Team Providers Care Oceanography Teacher Name Role Phone Chela Blackwell Attending Clinician Marquez Burnham Attending Clinician Unavailable Chela Blackwell Admitting Clinician Carlyle Guerra Admitting Clinician Unavailable Payers Payer Name Policy Type Policy Number Effective Date Expirati on Date Source Allergies, Adverse Reactions, Alerts Allergy Name Allergy Type Status Severity Reaction(s) Onset Date Inactive Date Treating Clinician Comments Source hydromor phone DA Active SV ITCHING 10-12 00:00: 00 [facility] Iodinate d Contrast Media DA Active MD HIVES 1-24 00:00: 00 [facility] Procedures Procedure Date / Time Performed Performing Clinicia n Source [id number] 2021-10-17 00:00:00 [facility].01 [facility] [id number] 2021-10-17 00:00:00 [facility]01 [facility] [id number] 2021-10-17 00:00:00 [facility]01 [facility] Encounters Start Date/Time End Date/Time Encounter Type Admission Type Attending Clinicians Care Facility Care Department Encounter ID Source 2021-10-17 05:22:00 2021-10-19 12:47:00 Inpatient EL Yesy Blackwellul [facility] INTE [id number] 92 [facility] 2021-10-12 09:00:00 2021-10-12 23:00:00 Outpatient [place] [facility] 3DAY [id number] 67 [facility] 2021-09-11 08:58:00 2021-09-11 08:58:00 Outpatient Marquez Hernández [facility] [id number] 12 [facility] Results Test Description Test Time Test Comments Results Result Co mments Source [id number] 04:12:00* Test Item Value Reference Range Interpretation Comme nts PHOSPHOROUS (test code = PHOS) 2.9 MG/DL 2.5-4.9 N [id number] 04:12:00* Test Item Value Reference Range Interpretation Comme nts MAGNESIUM (test code = MAG) 2.19 mg/dL 1.80-2.40 N CALCIUM [id number] 04:12:00* Test Item Value Reference Range Interpretation Comme nts CALCIUM IONIZED (test code = DORA) 1.17 MMOL/L 1.12-1.32 N CBC W/AUTO [id number] 04:07:00* Test Item Value Reference Range Interpretation [...] c ode = MDIFF) NO BASIC METABOLIC [id number] 22:25:00* Test Item Value Reference Range Interpretation [...] code = CA) 8.5 mg/dL 8.0-10.5 N [id number] 22:25:00* Test Item Value Reference Range Interpretation Comme nts MAGNESIUM (test code = MAG) 2.09 mg/dL 1.80-2.40 BASIC METABOLIC [id number] 17:39:00* Test Item Value Reference Range Interpretation [...] code = CA) 8.9 mg/dL 8.0-10.5 N [id number] 17:39:00* Test Item Value Reference Range Interpretation Comme nts PHOSPHOROUS (test code = PHOS) 2.5 MG/DL 2.5-4.9 N [id number] 17:39:00* Test Item Value Reference Range Interpretation Comme nts MAGNESIUM (test code = MAG) 1.81 mg/dL 1.80-2.40 N CALCIUM [id number] 17:39:00* Test Item Value Reference Range Interpretation Comme nts CALCIUM IONIZED (test code = DORA) 1.16 MMOL/L 1.12-1.32 N UA RFLX MICR CULT IF [id number] 15:38:00* Test Item Value Reference Range Interpretation [...] culture: Dysuria/FrequencySpecimen Description: CLEAN CATCH COMPREHENSIVE METABOLIC [id number] 04:24:00* Test Item Value Reference Range Interpretation [...] code = ALKP) 71 IUnit/L 20-125 N [id number] 04:24:00* Test Item Value Reference Range Interpretation Comme nts MAGNESIUM (test code = MAG) 1.70 mg/dL 1.80-2.40 L CBC W/AUTO [id number] 04:07:00* Test Item Value Reference Range Interpretation [...] (test c ode = MDIFF) NO HGB [id number] 22:51:00* Test Item Value Reference Range Interpretation Comme nts HEMOGLOBIN (test code = HGB) 8.1 g/dL 11.0-15.0 L HEMATOCRIT (test code = HCT) 26.3 % 33.0-45.0 L HGB [id number] 19:30:00* Test Item Value Reference Range Interpretation Comme nts HEMOGLOBIN (test code = HGB) 8.2 g/dL 11.0-15.0 L HEMATOCRIT (test code = HCT) 27.0 % 33.0-45.0 L BASIC METABOLIC [id number] 16:49:00* Test Item Value Reference Range Interpretation [...] (test code = POCGLU) 136 MG/DL HEMOGLOBIN [id number] 16:49:00* Test Item Value Reference Range Interpretation Comme nts HEMOGLOBIN ABG (test code = HGB/ABG) 9.1 G/DL 11.0-15.0 L [id number] 16:49:00* Test Item Value Reference Range Interpretation Comme nts HEMATOCRIT (test code = HCT/ABG) 27 % 33.0-45.0 L POC LACTIC [id number] 16:49:00* Test Item Value Reference Range Interpretation Comme nts POC LACTIC ACID (test code = POCLAC) 0.9 mmol/l 0.9-1.7 N POC VENOUS BLOOD [id number] 16:49:00* Test Item Value Reference Range Interpretation Comme nts POC VENOUS BLOOD GAS PH (dennis t code = POCPHV) 7.308 7.33-7.45 L POC VENOUS BLOOD GAS PCO2 (t est code = BZHGJR0D) 43.6 mmHg 43-47 N POC VENOUS BLOOD GAS PO2 (te st code = UCOCQ1F) 49.9 mmHG 10-50 N POC TCO2 VENOUS (test code = WPAJEY5C) 23.2 POC HCO3 VENOUS (test code = THMCTE7I) 21.9 MMOL/L 22-27 L POC BASE EXCESS VENOUS (test code = POCBEV) -4.2 MMOL/L -4.0-4.0 L POC O2 SATURATION VENOUS (te st code = HYVV1CO) 81.2 % 60-80 H [id number] 16:49:00* Test Item Value Reference Range Interpretation Comme [facility] ACT-ISTAT (test code = ACTI) 315 SEC 74-137 H Performed by cer tified preform machine operator at [facility] Novel Coronavirus 2019 Vvgbdel9103-95-14 05:13:00* Test Item Value Reference Range Interpretation Comme [facility] Novel Coronavirus 2019 Inhouse (test code = COVNONPUI) Negative Negative Positive resul ts are indicative of the presence cvIZXJ-AuY-3 RNA, clinical correlation with patient historyand other [...] the qualitative detection of nucleic acids from czhSPLE-NhF-6 virus and diagnosis of SARS-CoV-2 virusinfection. It is an Emergency Use Authorization (EUA) testauthorized by the U.S. FDA. B-TYPE NATRIURETIC [id number] 14:23:00* Test Item Value Reference Range Interpretation Comme nts B-TYPE NATRIURETIC PEPTIDE ( test code = BNP) 103.0 PG/ML 0-100 H BASIC METABOLIC [id number] 14:20:00* Test Item Value Reference Range Interpretation [...] code = CA) 9.1 mg/dL 8.0-10.5 N [id number] 14:20:00* Test Item Value Reference Range Interpretation Comme nts ALBUMIN (test code = ALB) 3.60 g/dL 3.4-5.0 N PROTHROMBIN [id number] 14:10:00* Test Item Value Reference Range Interpretation [...] Infarction (to prevent recurrent infarct). CBC W/AUTO [id number] 14:06:00* Test Item Value Reference Range Interpretation [...] = MDIFF) NO - XR CHEST 2 [id number] 00:00:00 [facility] : 1935 Sex: F FAX: Carlyle Mandujano MD [phone] [place]: St: PRE FAX: Camryn Padilla MD [phone] Name: MALU LAIRD [facility] Terry Blair : 1935 Age/S: 86/F [address] [place] [address] Unit #: [id number] Loc: [place] [address] Phys: Camryn Gavin MD Acct: [id number] Dis Date: Status: PRE IN PHONE #: [phone] ExamDate: 10/12/2021 1504 FAX #: [phone] Reason: PREOP EXAMS: CPT CODE: [id number] XR CHEST 2 V 63884 PROCEDURE INFORMATION: Exam: XR Chest Exam date [...] Coronary arterial calcifications and or metallic stents. Thepulmonary vasculature is normal. Bones/joints: There is no acute skeletal abnormality. IMPRESSION: 1. No acute findings. 2. Coronary arterial calcifications and or stents. 3. Hiatal hernia. at 1706 Reported and signed by: Donovan Clemons M.D. CC: Carlyle Walter MD; Camryn Gavin MD Technologist: Betty Cline, RT(R) TrnscrdDate/Time/By: 10/12/2021 (1705) : By: ErnieKWL Orig Print D/T: S: 10/12/2021 (1705) PAGE 1 Signed Report COVID 19 Asymptomatic IH [id number] 11:39:00* Test Item Value Reference Range Interpretation [...] high or waivedcomplexity tests. CREATININE W ESTIMATED [id number] 11:29:00* Test Item Value Reference Range Interpretation Comme nts BEDSIDE CREATININE (test code = CREATBED) 1.5 MG/DL 0.6-1.3 H Performed by certified preform machine operator at [facility] GLOMERULAR FILTRATION RATE POC (test code = GFRBED) 35 ML/MIN Performed by certified preform machine operator at [facility] - CT ANGIO [id number] 00:00:00 [facility] 1935 Sex: F Name:MALU LAIRD [facility] Terry Blair : 1935 Age/S: 86 / F [address] [place] [address] Blvd Unit #: [id number]: [place] [address] Phys: Marquez Bey MD Acct: [id number] Dis Date: Status: REG CLI PHONE #: [phone] Exam Date: 09/11/2021 1041 FAX #: [phone] Reason: TAVR EXAMS: CPT CODE: [id number] CT ANGIO CHEST 05837 PROCEDURE INFORMATION: Exam: CTA Chest With Contrast Exam date and time: 09/11 10:19 AM Age: 86 years old Clinical indication: Other: Aortic stenosis TECHNIQUE: Imaging protocol: Computed tomographic angiography of the chest with contrast. 3D rendering (Not supervised byradiologist): MIP and/or 3D reconstructed images were created [...] studies available. FINDINGS: Pulmonary arteries: Ectatic pulmonary arteries.Aorta: Moderate to severe aortic root calcification is [...] mild thoracic aortic scattered calcifications is seen. 3.Coronary artery disease. 4. Ectatic pulmonary arteries, which may represent pulmonary hypertension.5. 4 mm noncalcified nodule in the right lung base. 2017 Fleischner criteria guidelines suggest the following. For low-risk patients, no follow-up is necessary. For high-risk patients (smoking history or other known risk factors to increase their risk of malignancy) an optional chest CT at 12 months could be performed. PAGE 1 Signed Report (CONTINUED) Name: MALU LAIRD : 1935 Age/S: 86 / F [address] [place] [address] Blvd Unit #: [id number] Loc: [place] [address] Phys: Marquez Bey MD Acct: [id number] Dis Date: Status: REG CLI PHONE #: [phone] Exam Date: 09/11/2021 1041 FAX #: [phone] Reason: TAVR EXAMS: CPT CODE: [id number] CT ANGIO CHEST 20913 (Continued) PROCEDURE INFORMATION: Exam: CTA Heart and Coronary Arteries; TAVR Planning Exam date and time: 09/11/2021 10:19 AM Age: 86 years old Clinical indication: Other: Aortic stenosisTECHNIQUE: Imaging protocol: CTA heart, coronary arteries and bypass grafts (when present) with contrast material including 3D image postprocessing (including evaluation of cardiac structure and morphology, assessment of cardiac function, and evaluation of venous structures, if performed). Exam performed for transcatheter aortic valve replacement (TAVR) planning. 3D rendering (Not supervised by radiologist): MIP and/or 3D reconstructed images were created by the technologist. Acquisition mode:A prospective trigger or retrospective gating technique was used according to site specific protocol. Scanner: A minimum of [address] slice or [address] scanner was used according to site location. Radiation optimization: All CT scans at this facility use at least one of these dose optimization techniques: automated exposure control; mA and/or kV adjustment per patient size (includes targeted e xams where dose is matched to clinical indication); or iterative reconstruction. Contrast material:ISOVUE 370; Contrast volume: 100 ml; Contrast route: INTRAVENOUS (IV); Pharmacological intervention: None. Other technique: 3D renderinD reconstructed images were created, reviewed and saved. COMPARISON: No relevant prior studies available. FINDINGS: Estimated root/annulus diameters are as follows: Aortic annulus diameter: 3 cm Sinus of Valsalva diameter: 3.5 cm Sinotubular junction diameter:2.9 cm Right cusp height (to RCA takeoff): 1.6 cm Left cusp height (to Left main takeoff): 1.7 cm Estimated aortic diameters are as follows: Mid ascending aorta: 3.5 cm Mid transverse arch: 3 cm Descending thoracic aorta at the level of the pulmonary arteries: 2.8 cm PAGE 2 Signed Report (CONTINUED) Name: MALU LAIRD : 1935 Age/S: 86 / F [address] [place] [address] Blvd Unit #: [id number] Loc: [place] [address] Phys: Marquez Bey MD Acct: [id number] Dis Date: Status: REG CLIPHONE #: [phone] Exam Date: 09/11/2021 1041 FAX #: [phone] Reason: TAVR EXAMS: CPT CODE: [id number] CT ANGIO CHEST 82229 (Continued) IMPRESSION: Aortic root measurements as above. [...] Mild atherosclerotic changes. Left iliac arteries: No occlusionor significant stenosis. Mild atherosclerotic changes. Lymph the Liver: Few small simple cysts involving the liver. Gallbladder and bile ducts: No calcified stones. No ductal dilation. PAGE 3 Signed Report (CONTINUED) Name: MALU LAIRD : 1935 Age/S: 86 / F [facility] Unit #: [id number] Loc: [place] [address] Phys: Marquez Bey MD Acct: [id number] Dis Date: Status: REG CLI PHONE #: [phone] Exam Date: 09/11/2021 1041 FAX #: [phone] Reason: TAVR EXAMS: CPT CODE: [id number] CT ANGIO CHEST 89816 (Continued) Pancreas: No ductal dilation. 2 cm cysticlesion is seen involving the pancreatic neck. Spleen: Unremarkable. Adrenal glands: Unremarkable. No mass. Kidneys and ureters: Small simple cyst in the right kidney upper pole. Exophytic 3.8 cm simple cyst in the left kidney upper pole. Mild scarring is seen in the left kidney upper pole. No hydronephrosis. Stomach and bowel: No obstruction. Appendix: No evidence of appendicitis. Intraperitonealspace: No free air. No significant fluid collection. [...] D.O. CC: Carlyle Walter MD; Marquez Bey MDTechnologist:Yusuf Perkins, RT(R)(CT) CTDI: DLP: Trnscb Date/Time: 09/11/2021 (1619) tQUINCYR.MP37 Orig Print D/T: S: 09/11/2021 (1619) PAGE 4 Signed Report- CTA HEART W CN ART/[id number] 00:00:00 [facility] TERRY BLAIRName: MALU LAIRD : 1935 Sex: F Name:MALU LAIRD [facility] Terry Blair : 1935 Age/S: 86 / F [address] [place] [address] Blvd Unit #: [id number] Loc: [place] [address] Phys: Marquez Bey MD Acct: [id number] Dis Date: Status: REG CLI PHONE #: [phone] Exam Date: 09/11/2021 1041 FAX #: [phone] Reason: EXAMS: CPT CODE: [id number] CTA HEART W CN ART/GRAFTS 70332 PROCEDURE INFORMATION: Exam: CTA Chest With Contrast Exam date and time: 09/11/2021 10:19 AM Age: 86 years old Clinical indication: Other: Aortic stenosis TECHNIQUE: Imaging protocol: Computed tomographic angiography of the chest with contrast. 3D rendering (Not supervised by radiologist): MIP and/or 3D reconstructed images were created by the technologist. Radiationoptimization: All CT scans at this facility use at least one of these dose optimization techniques:automated exposure control; mA and/or kV adjustment per [...] calcification is seen. Minimal to mild thoracic aorticscattered calcifications is seen. Lungs: No consolidation. No [...] 1 Signed Report (CONTINUED) Name: MALU LAIRD [facility] : 1935 Age/S: 86 / F [address] [place] [address] Unit #: [id number] Loc: [place] [address] Phys: Marquez Alvarado MD Acct: [id number] Dis Date: Status: REG CLI PHONE #: [phone] Exam Date: 09/11/2021 1041 FAX #: [phone] Reason: EXAMS: CPT CODE: [id number] CTA HEART W CN ART/GRAFTS 82726 (Continued) PROCEDURE INFORMATION: Exam: CTA Heart and [...] volume: 100 ml; Contrast route: INTRAVENOUS (IV); Pharmacologicalintervention: None. Other technique: 3D renderinD reconstructed images [...] pulmonary arteries: 2.8 cm PAGE 2 Signed Repo rt (CONTINUED) Name: MALU LAIRD [facility] : 1935 Age/S: 86 / F [address] [place] [address] Blvd Unit #: [id number] Loc: [place] [address] Phys: Marquez Bey MD Acct: [id number] Dis Date: Status: REG CLI PHONE #: [phone] Exam Date: 09/11/2021 1041 FAX #: [phone] Reason: EXAMS: CPT CODE: [id number] CTA HEART W CN ART/GRAFTS 18004 (Continued) IMPRESSION: Aortic root measurements asabove. PROCEDURE INFORMATION: Exam: CTA Abdomen and Pelvis With Contrast Exam date and time: 09/11/2021 10:19 AM Age: 86 years old Clinical indication: Other: Aortic stenosisTECHNIQUE: Imaging protocol: Computed tomographic angiography of the [...] relevant prior studies available. FINDINGS: Estimated aortoiliac/iliofemoral arterialdiameters are as follows: Abdominal aorta just below [...] occlusion or significant stenosis. Mild atherosclerotic changes. Rightiliac arteries: No occlusion or significant stenosis. Mild atherosclerotic changes. Left iliac arteries: No occlusion or significant stenosis. Mild atherosclerotic changes. Lymph the Liver: Few smallsimple cysts involving the liver. Gallbladder and bile ducts: No calcified stones. No ductal dilation. PAGE 3 Signed Report (CONTINUED) Name: MALU LAIRD [facility] [place] : 1935 Age/S: 86 / F[address] [facility] [address] Unit #: [id number] Loc: [place] [address] Phys: Marquez Bey MD Acct: [id number] Dis Date: Status: REG CLI PHONE #: [phone] Exam Date: 09/11/2021 104 FAX #: [phone] Reason: EXAMS: CPT CODE: [id number] CTA HEART W CN ART/GRAFTS 79012 (Continued) Pancreas: No ductal dilation. 2 cm [...] bowel: No obstruction. Appendix: No evidence of appe ndicitis. Intraperitoneal space: No free air. No significant [...] RT(R)(CT) CTDI: DLP: Trnscb Date/Time: 09/11/2021 (1619) [email or web address].MP37 Orig Print D/T: S: 09/11/2021 (1619) PAGE 4 Signed Report- CTA ABD PEL W [id number] 00:00:00 [facility] : 1935 Sex: F Name:MALU LAIRD [facility] : 1935 Age/S: 86 / F [address] [place] [address] Unit #: [id number] Loc: [place], [place] [address] Phys: Marquez Bey MD Acct: [id number] Dis Date: Status: REG CLI PHONE #: [phone] Exam Date: 09/11/2021 1041 FAX #: [phone] Reason: TAVR EXAMS: CPT CODE: [id number] CTA ABD PEL W CONT 16273 PROCEDURE INFORMATION: Exam: CTA Chest With Contrast [...] series 4. Pleural spaces: Unremarkable. No pneumothorax. Nopleural effusion. Heart: Heart is borderline in size. [...] 1 Signed Report (CONTINUED) Name: MALU LAIRD [facility] : 1935 Age/S: 86 / F [address] [place] [address] Unit #: [id number] Loc: [place] [address] Phys: Marquez Bey MD Acct: [id number] Dis Date: Status: REG CLI PHONE #: [phone] Exam Date: 09/11/2021 1041 FAX #: [phone] Reason: TAVR EXAMS: CPT CODE: [id number] CTA ABD PEL W CONT 92098 (Continued) PROCEDURE INFORMATION: Exam: CTA Heart and [...] ascending aorta: 3.5 cm Mid transverse arch: 3cm Descending thoracic aorta at the level of the pulmonary arteries: 2.8 cm PAGE 2 Signed Report (CONTINUED) Name: AMLU LAIRD : 1935 Age/S: 86 / F [address] [place] [address] Unit #: [id number] Loc: [place] [address] Phys: Marquez Bey MD Acct: [id number] Dis Date: Status: REG CLI PHONE #: [phone] Exam Date: 09/11/2021 1041 FAX #: [phone] Reason: TAVR EXAMS: CPT CODE: [id number] CTA ABD PEL W CONT 13770 (Continued) IMPRESSION: Aortic root measurements as above. [...] renal arteries: 2.1 cm Distal abdominal aorta atiliac bifurcation: 1.7 cm Right common iliac artery: 1.3 cm Left common iliac artery: 1.2 cm Right common femoral artery: 0.9 cm Left common femoral artery: 1 cm Mediastinal space: Moderate- sized hiatal hernia. Aorta: There is atherosclerotic calcification of the aorta. No aneurysm or dissection. Celiac trunk and mesenteric arteries: No occlusion or significant stenosis. Mild atherosclerotic changes. Renal arteries: No occlusion or significant stenosis. Mild atherosclerotic changes. Right iliac arteries: No occlusion or significant stenosis. Mild atherosclerotic changes. Left iliac arteries:No occlusion or significant stenosis. Mild atherosclerotic changes. Lymph the Liver: Few small simple cysts involving the liver. Gallbladder and bile ducts: No calcified stones. No ductal dilation. PAGE 3 Signed Report (CONTINUED) Name: MALU LAIRD : 1935 Age/S: 86 / F [address] [place] [address] Blvd Unit #: [id number] Loc: [place] [address] Phys: Marquez Bey MD Acct: [id number] Dis Date: Status: REG CLI PHONE #: [phone] Exam Date: 09/11/2021 1041 FAX #: [phone] Reason: TAVR EXAMS: CPT CODE: [id number] CTA ABD PEL W CONT 69331 (Continued) Pancreas: No ductal dilation. 2 cm [...] Technologist:RT Becki(R)(CT) CTDI: DLP: Trnscb Date/Time: 09/11/2021 (1620) [email or web address].MP37 Orig Print D/T: S: 09/11/2021 (1620) PAGE 4 Signed Report Notes Date/Time Note Provider Source 2021-11-24 16:47:00 [id number]/VMDH3loQdk lljH0dORywUPC1Jc4cXrRaAOsZu4630-56-65F34:47:00 [facility] ([facility])DT Operative NoteREPORT#:[id number] REPORT STATUS: SignedDATE:11/24/21 TIME: 1647 PATIENT: MALU LAIRD UNIT #: [id number]#: [id number] [address]DOB: [birth year] AGE: 86 SEX: F ATTEND: Chela Blackwell [facility] AUTHOR: Bertrand Rojas MD * ALL edits or amendments must be made on the electronic/computer document * Operative Report Operative NoteNote:OPERATION DATE: 10/17/2021 PROCEDURES PERFORMED: Transcatheter aortic valve replacement using 23-mm SapienS3 Ultra +1 mL via right femoral artery access. INDICATIONS: Severe symptomatic aortic valve stenosis. Environmental Planner: Moises Rojas MD.Marquez Bey MD. SURGEON: Dr. Blackwell. ACCESS:1. Right femoral artery, 14-Icelandic closed with a MANTA closure device.2. Left femoral artery, 6-Icelandic closed with 6-Icelandic Angio-Seal.3. Left femoral vein 8-Icelandic closed with osazuf-ni-zhdzi suture. BLEEDING: Less than 40 mL. DESCRIPTION [...] we upgraded the right femoral access into 14-Icelandic Modi sheath and then we took msrked [...] down to the distalaorta. We removed the Mdoi sheath and closed with MANTA closure device. Limited angiogram of the right groin showed mild extravasation and protamine wasgiven to reverse the heparin and then I took an PHUONG catheter through the leftfemoral artery into the distal aorta and crossed over with a [place] Advantagewire into the right femoral artery and [...] from the left femoral artery and placed 2-HmvghtFqbbg-Gnol with good hemostasis. Venous sheath was removed and dmlewkekxwft-cx-hbhwm suture with good hemostasis. CONCLUSION: Successful BUILDING SERVICES ENGINEER to the right STEAM ROLLER OPERATOR and hemostasis acheived.Successful transcatheter aortic valve replacement using 23-mm Delphine S3 Ultra valve on 1 mL. PLAN: Admit for 24 hours. Obtain echocardiogram tomorrow and we will plan todischarge in the next 24 hours If she continues to be stable. COMPLICATIONS: None. at 1702 RPT #:[id number] OF REPORTOPOperative kegjep7632-03-41U60:47:00G.QENR05181720-5679AXDio ilable for patient ywsfXDLSABCVQTDHNF1632-19-67Z61:03:14 [facility] 2021-10-26 15:13:00 [id number] 6w2UORwAoVsbkedhmMy2X7jhIuTgV 2dPOtiqaccL8yp2yc9XZ6BTQhsW3535-72-14W87:13:00 [facility] ([facility])History Physical - AdultREPORT#:[id number] REPORT STATUS: SignedDATE:10/26/21 TIME: 1513 PATIENT: MALU LAIRD UNIT #: [id number]#: [id number] ROOM/BED: 3307-1DOB: [birth year] AGE: 86 SEX: F ATTEND: Chela Blackwell [facility] AUTHOR: Fox Clark NP * ALL edits or amendments must be made on the electronic/computer document * Fox Clark 10/26/21 1513:History of Present Illness HPIChief complaint:Aortic stenosisPCP:PCP: Carlyle Walter MD HPI:Ms. Laird is a very pleasant 86-year-old female with aortic stenosis being followed by her associate software engineer with serial scans. Most recent echocardiogram showed [...] sounds, softExtremities: moves allMusculoskeletal: full range of motionNeuro/BATTERY TESTER: alert, oriented X 3Skin: dry, intact Diagnosis, Assessment Plan Free Text DxA P NotesFree Text DxA P Notes:Ms. Laird is a very pleasant 86-year-old female with aortic stenosis being followed by her associate software engineer with serial scans. Most recent echocardiogram showed [...] all her questions. at 1602 at 0745 [facility] #:[id number] OF REPORTHPHistory and physical ngtdadghbaz4899-80-82S74:13:00G.NVRH27211039-5457 AVAvailable for patient hpofGBBCITKUNVTBHY2287-69-00Y00:02:16 [facility] [facility] 2021-10-19 18:09:00 [id number] 0yNX8Ol+HwoqLJ4VhgC+KFQERPKRU ySmpOcWNRp72ITFZf13SKtgEodj2441-05-89V53:09:69388 3-[address] [place] [id number] PATIENT NAME: MALU LAIRD ADMIT DATE: 10/17/21ACCOUNT NO: [id number] ROOM NO: G.3307 AGE: 86 REPORT TYPE: eECHOCARDIOGRAM REPORT SEX: F ADMITTING PHYSICIAN:Chela Blackwell MD ATTENDING PHYSICIAN:Chela Blackwell MD *[address], [place] [address]Eqisf: [phone]: [phone] Transthoracic Echocardiogram Patient: Esperanza Lairdudkim Date: 10/18/2021 BP: 162 / 72 [id number] 1935 Age: 86 Height: 65 in / 165.1 cmAccession#: [id number] Gender: F Weight: 167.6 lb / 76.2 kgBMI/BSA: 28 kg/m 2 / 1.89 m 2 *Ordering Physician: * Aguila Boyle *Interpreting Physician: * Bertrand Rojas MD*Shrimp Picker: * Pily Tillman Indications: POST TAVR. Study data: Transthoracic echocardiogram. Procedure: Transthoracicechocardiography was performed. Image quality was adequate. Justaqha4Q, complete spectral Doppler, and color Doppler. Location: [...] at 1809 PATIENT NAME: MALU LAIRD :09:0 0G.[id number] for patient mxjeEHSPZJPIWSTUVP3388-56-28Y98:09:43 [facility] 2021-10-19 15:45:00 [id number] yJEGo8+Fyi6B9ROS9EVbPn1qBTWgF p1Ptcu94O9sye4iln9rwWfVlfen7175-96-99M62:45:00 [facility] ([facility])Discharge SummaryREPORT#:[id number] REPORT STATUS: SignedDATE:10/19/21 TIME: 1545 PATIENT: MALU LAIRD UNIT #: [id number]#: [id number] [address] [birth year] AGE: 86 SEX: F ATTEND: Chela Blackwell [facility] AUTHOR: Aguila Boyle * ALL edits or amendments must be made on the electronic/computer document * General InformationDischarge date: 10/19/21Hospital course:Malu Laird is a 86-year-old female with a past medical history that significant for severe aortic stenosis coronary disease, hyperlipidemia, hypertension, who was admitted for elective ERICK procedure by Dr. Bey. Due to her shortness ofbreath on exertion, patient was investigated by her associate software engineer. Echo done on 07/27/2021 suggestive of severe [...] valve implantation (ERICK) with a 23 mm Incentive sapein ultra valve via -transfemoral approach under MAC.* Patient tolerated procedure without any postoperative complications* Reports reproducible CP and redness to chest. Dr Rojas aware-Likely musculoskeletal* Patient is currently hemodynamically stable.* Patients bilateral groin incision is CDI, without hematoma, no signs of bleeding or infection.* Post op echo reviewed by Environmental Planner today suggestive of a normal-appearing bioprosthetic valve [...] weeks.* Patient instructed to follow-up with regular associate software engineer 1-2 weeks.* Also instructed to follow-up in the valve clinic in 30 days and 1 year for Medicare Registry Visit.* Post ERICK discharge instructions /handout given to the patient who verbalized understanding of the instructions given and patient is notified to report any complaints of chest pain, shortness of breath lightheadedness or dizziness to associate software engineer. Discharge Instructions PCPPCP:PCP: Carlyle Walter MD )( [...] AppointmentsPCP follow up: PCP: Carlyle Walter MD Fxvfvgihv Physician: Jfsqtcmtka provider 1: Provider 1: Marquez Bey MD Specialty: CardiologyInterventional Consult follow up timeframe: In 1-2 weeks Special instructions:CALL TO SCHEDULE APPOINTMENT at 1052 RPT #:[id number] OF REPORTDSDischarge afmfdoy2583-99-85O57:45:00G.KYQA87309779-9666BXRu ailable for patient hchaTLVCCGWXCKPIBQ1397-00-61N35:52:46 [facility] 2021-10-19 09:24:00 [id number]/rqeaD S9E0I5dxMmER+NBHcYrqA1iROS4f0 MQbwTFNKitYIM4SigDvqW7dzASw3298-83-62S35:24:00 [facility] Progress NoteREPORT#:[id number] REPORT STATUS: SignedDATE:10/19/21 TIME: 923 PATIENT: MALU LAIRD UNIT #: [id number]#: [id number] [address] [birth year] AGE: 86 SEX: F ATTEND: Chela Blackwell [facility] AUTHOR: Zully Crow * ALL edits or amendments must be made on the electronic/computer document * SubjectivePatient reports:No: complaints. Objective GeneralVS/I O:24 hour I O ending at 0700: 03 0700 03/02 1900 Intake Total 300 630 Output Total 475 2925 Balance -175 -2295 Intake, Oral 300 630 Intake, Oral 0 Supplement Number 2 Bowel Movements Number 4 Incontinent Voids Output, Urine 475 2925 Vital Signs: Date Time Temp Pulse Resp [...] edemaLower extremity: LE assessment: normal temperature, no edemaNeuro/BATTERY TESTER: alert, normal speechSkin: bruise at midsternal -tenderness [...] % (Auto) (14.0 - 32.0 %) 17.0 Jerauld % (Auto) (4.8 - 9.0 %) 11.4 H Eos % (Auto) (0.3 - 3.7 %) 0.0 L Baso % (Auto) (0.0 - 2.0 %) 0.2 Neut # (Auto) (2.0 - 7.6 x10 3/uL) 6.49 Lymph # (Auto) (1.0 - 3.8 x10 3/uL) 1.56 Jerauld # (Auto) (0.1 - 0.8 x10 3/uL) [...] pH (5.0 - 7.0) 5.0 Ur Specific [place] (1.005 - 1.030) 1.015 Urine Protein (NEGATIVE) [...] be taken care of by the TAVR HOOF AND SHOE INSPECTOR. Outpatient follow-up with Dr. Bey in 1-2 weeks. at 1244 at 0752 [facility] #:[id number] OF REPORTPRProgress seyc5743-55-02G68:24:00G.BRDT72744793-8849HMRwhhh able for patient ccavAYWQWEBWHHVKGM2230-35-65J64:45:03 [facility] 2021-10-18 11:50:00 [id number] C7+K8hAShXPyfipJ+oEeJ+qoXR1Yv NKJL8su5RVMmvEgMi9AnBK0lUpQ4980-06-65G13:50:00 [facility] ([facility])Neurology Consultation NoteREPORT#:[id number] REPORT STATUS: SignedDATE:10/18/21 TIME: 1150 PATIENT: MALU LAIRD UNIT #: [id number]#: [id number] [address] AGE: 86 SEX: F ATTEND: Chela Blakcwell [facility] AUTHOR: Nazario Monroy MD * ALL edits [...] 5.0 g/dL) 2.90 L Laboratory Tests 10/17 164 Coagulation Activated Coag Time (74 - 137 [...] % (Auto) (14.0 - 32.0 %) 16.6 Jerauld % (Auto) (4.8 - 9.0 %) 8.5 Eos % (Auto) (0.3 - 3.7 %) 0.0 L Baso % (Auto) (0.0 - 2.0 %) 0.1 Neut # (Auto) (2.0 - 7.6 x10 3/uL) 5.55 Lymph # (Auto) (1.0 - 3.8 x10 3/uL) 1.24 Jerauld # (Auto) (0.1 - 0.8 x10 3/uL) [...] is low and she has no clear BATTERY TESTER findings. If photopsia increase in frequency or scotoma noted by patient would consider ophthalmology evaluation. No further neurology work-up. Photopsia Urinary incontinence- agree with UA- consider bladder scan post void given recent anesthesia. at 1223 RPT #:[id number] OF REPORTBZRpyrltglzevu1541-65-74S71:50:00G.PDOC2 5578820-5406KADixadezuw for patient zdyxDGEXUYIOMNUEZO4984-75-02V29:23:58 [facility] 2021-10-18 11:29:00 [id number]/VSjTwQL 1n1zgTmtY1U+S7r0663WfWNePIOtP LndHu4KoSAN1wMGscQu+Hb1SMzX5960-79-77Y79:29:00 [facility] ([facility])Cardiology Progress NoteREPORT#:[id number] REPORT STATUS: SignedDATE:10/18/21 TIME: 1129 PATIENT: MALU LAIRD UNIT #: [id number]#: [id number] [address] AGE: 86 SEX: F ATTEND: Chela Blackwell [facility] AUTHOR: Radha Renteria NP * ALL edits [...] 03/01 2213 58 24 144/49 78 100 03/01 2200 108/54 78 03/01 2200 46 16 127/42 66 100 /5 122/59 85 /5 51 19 140/45 74 99 03/01 0 115/58 83 /0 54 15 147/44 74 97 /2 54 13 154/46 77 100 10/18 2115 119/55 77 10/18 2115 55 14 155/46 78 99 10/17 2114 55 16 154/46 78 10/17 2100 121/55 79 10/17 2100 51 14 150/44 74 98 /2036 47 14 123/39 65 100 10/18 2035 114/67 84 10/18 2035 50 16 126/42 68 100 /2 45 14 122/38 62 100 10/17 2029 [...] edemaLower extremity: LE assessment: normal temperature, no edemaNeuro/BATTERY TESTER: alert, normal speechSkin: bruise at midsternal -tenderness [...] % (Auto) (14.0 - 32.0 %) 16.6 Jerauld % (Auto) (4.8 - 9.0 %) 8.5 Eos % (Auto) (0.3 - 3.7 %) 0.0 L Baso % (Auto) (0.0 - 2.0 %) 0.1 Neut # (Auto) (2.0 - 7.6 x10 3/uL) 5.55 Lymph # (Auto) (1.0 - 3.8 x10 3/uL) 1.24 Jerauld # (Auto) (0.1 - 0.8 x10 3/uL) [...] pH (5.0 - 7.0) 5.0 Ur Specific [place] (1.005 - 1.030) 1.015 Urine Protein (NEGATIVE) [...] Per IM. at 1601 at 0755 RPT #:[id number] OF REPORTPRProgress jomo4925-60-14C25:29:00G.MHMY62343507-4599HQAciyl able for patient qispCHSJDPYOEEVKXE5542-26-78E90:01:24 [facility] 2021-10-18 10:27:00 [id number]/sVI JA3vL9m+b5AOZsyEVBoH0n8PFKJk8 /8k6/Whh/KRHp6xneLBQlr73XHp7692-99-97X49:27:84754 2-0184 [place] [address] PATIENT NAME: MALU LAIRD ADMIT DATE: 10/17/21ACCOUNT NO: [id number] ROOM NO: G.3307 AGE: 86 REPORT TYPE: OPERATIVE REPORT SEX: F ADMITTING PHYSICIAN:Chela Blackwell MD ATTENDING PHYSICIAN:Chela Blackwell MD OPERATION DATE: 10/17/2021 PROCEDURES PERFORMED: Transcatheter aortic valve replacement using 23-mm SapienS3 Ultra +1 mL via right femoral artery access. INDICATIONS: Severe symptomatic aortic valve stenosis. PRIMARY OPERATORS: Dr. Marquez Bey. ENVIRONMENTAL COMPLIANCE SPECIALIST: Moises Rojas MD. PRIMARY SURGEON: Dr. Blackwell. ACCESS:1. Right femoral artery, 14-Icelandic closed with a MANTA closure device.2. Left femoral artery, 6-Icelandic closed with 6-Icelandic Angio-Seal.3. Left femoral vein 8-Icelandic closed with pzxjrx-im-lxeig suture. COMPLICATIONS: None. BLEEDING: Less than 50 [...] leftfemoral artery, left femoral vein and placed 6-Icelandic Lynden sheath. Then Igave systemic heparin to assure ACT level above 250 and I upgraded the rightfemoral access into 14-Icelandic Modi sheath and then I took numbered [...] distal aorta and crossed over with a [place] Advantagewire into the right femoral artery and [...] from the left femoral artery and placed 4-BddvjjAvblg-Ogwy with good hemostasis. Venous sheath was removed and fsrpdqotqpsj-fb-psqpb suture with good hemostasis. CONCLUSION: Successful transcatheter aortic valve replacement using 23-mmSapien S3 Ultra valve on 1 mL. PLAN: Admit for 24 hours. Obtain echocardiogram tomorrow and we will plan todischarge in the next 24 hours If she continues to be stable. Dictated By: Marquez Bey MD WT: OP:GTELLO/BEL/NTSDD: 10/18/2021 10:27:02DT: 10/18/2021 11:58:34Conf#: [id number]/DID#: [id number] Authenticated by Marquez Bey MD On 10/24/2021 10:42:33 AM at 1042 PATIENT NAME: MALU LAIRD osawir2617-04-38H25:58:00G.TYL87664815-5229DMMntt lable for patient hsmnKRJJGIBYRGVNDT1919-76-67R72:43:06 [facility] 2021-10-18 10:14:00 [id number]/ctpJ cGR1KlAuY/DO3J70D3SAWZ4ZN0MVf i0NJz01hc4ruc5sOqdRJlDorFPP1650-10-19Y83:14:00 [facility] ([facility])Structural Heart Post ProgressREPORT#:[id number] REPORT STATUS: SignedDATE:10/18/21 TIME: 1014 PATIENT: MALU LAIRD UNIT #: [id number]#: [id number] [place]OM[facility]BED[facility]DOB: [birth year] AGE: 86 SEX: F ATTEND: Chela Blackwell MDADM AUTHOR: Aguila Boyle * ALL edits or amendments must be made on the electronic/computer document * History of Present Illness HPIReferring associate software engineer:Dr Goldstein PCP:PCP: Carlyle Walter MD HPI:Malu Laird is a 86-year-old female with a past medical history that significant for severe aortic stenosis coronary disease, hyperlipidemia, hypertension, who was admitted for elective ERICK procedure by Dr. Bey. Due to his shortness ofbreath on exertion, patient was investigated by her associate software engineer. Echo done on 07/27/2021 suggestive of severe [...] IV 11/16 1659 0.1MG/ML SYR) Blood Formation,Coagulation Sig/Jaems Start time Last Medication Dose Route Stop [...] 1900 DC 10/17 (SODIUM CHLORIDE IV 10/17 1959 1903 0.9%) Sodium Chloride 500 ML ASDIR PRN 10/17 1700 AC (SODIUM CHLORIDE IV 11/16 1659 0.9%) Lactated Ringer's 1,000 ML PREOP ONCALL 10/12 1445 AC (LACTATED RINGERS) IV 11/11 2359 Sodium Chloride 500 ML PREOP ONCALL 10/12 1445 AC (SODIUM CHLORIDE IV 11/11 2359 0.9%) Sodium Chloride 500 ML PREOP ONCALL 10/12 1445 AC (SODIUM CHLORIDE IV 11/11 2359 0.9%) Sodium Chloride 1,000 ML PREOP ONCALL 10/12 1445 AC (SODIUM CHLORIDE IV 11/11 2359 0.9%) Sodium Chloride 5 ML ASDIR PRN [...] soft, non-tender, normal bowel soundsExtremities: dry, moves allNeuro/BATTERY TESTER: alert, oriented X 3 Diagnosis, Assessment Plan Diagnosis, Assessment PlanProblem List/A P: 1. Severe aortic stenosis 2. Coronary artery disease 3. Hypertension 4. Hyperlipidemia Free Text A P:Symptomatic severe aortic stenosis * Patient is status post transcatheter aortic valve implantation (ERICK) with a 26 mm Incentive sapein ultra valve via -transfemoral approach under MAC.* Patient tolerated procedure without any postoperative complications* Reports reproducible CP and redness to chest. Dr Rojas aware-Likely musculoskeletal* Patient is currently hemodynamically stable.* Patients bilateral groin incision is CDI, without hematoma, no signs of bleeding or infection.* Post op echo reviewed by Environmental Planner today suggestive of a normal-appearing bioprosthetic valve [...] MAGNESIUM 10/18 0400 Complete at 0909 RPT #:[id number] OF REPORTPRProgress liyt6173-75-54S08:14:00G.GHSI17228749-9160JCEhxbv able for patient ozdcZMLMBKFWMEIAUA0336-42-74K93:10:13 [facility] 2021-10-18 08:15:00 [id number] G5HITLOVc1t6tojW3RXoHtgYOFE7+ NLqHH3RNqYgI8Sw9uYfEY1yoEIe0870-55-22Q38:15:70847 2-[address] [place], [place] [address] PATIENT NAME: MALU LAIRD ADMIT DATE: 10/17/21ACCOUNT NO: [id number] ROOM NO: G.3307 AGE: 86 REPORT TYPE: eECHOCARDIOGRAM REPORT SEX: F ADMITTING PHYSICIAN:Chela Blackwell MD ATTENDING PHYSICIAN:Chela Blackwell MD *[address], [place] [address]Jazat: [phone]: [phone] Limited Transthoracic Echocardiogram Patient: Esperanza Lairdudy Date: 10/17/2021 BP: 118 / 67 [facility] [id number] : 1935 Age: 86 Height: 65 in / 165.1 cmAccession#: [id number] Gender: F Weight: 164.7 lb / 74.8 kgBMI/BSA: 27.5 kg/m 2 / 1.87 m 2 *Ordering Physician: * Camryn Gavin *Interpreting Physician: * Bertrand Rojas MD*Shrimp Picker: * Teri Rowland Indications: TAVR. Study data: [...] at 0815 PATIENT NAME: MALU LAIRD :15:0 0G.[id number] for patient njfgMQIJDHRXLCJOMI3543-66-65X54:16:22 [facility] 2021-10-18 03:46:00 [id number]+bD6YJfu 3wvlDimWlJp/tbMEb6v29jK6bxz6b V6ySJlyV4LUgGYAmFmUQDxRunwM2220-95-78P55:46:93490 3-[address] [address] PATIENT NAME: MALU LAIRD ADMIT DATE: 10/17/21ACCOUNT NO: [id number] ROOM NO: G.3307 AGE: 86 REPORT TYPE: eELECTROCARDIOGRAM REPORT SEX: F ADMITTING PHYSICIAN:Chela Blackwell MD ATTENDING PHYSICIAN:Chela Blackwell MD Order:[id number] Reason : POST TAVR Test Date/Time Stamp:SatOct [...] MD at 0936 PATIENT NAME: MALU LAIRD .[id number] AVAvailable for patient xhpdYKHVPGEUBBHPKU4297-87-13G11:37:12 [facility] 2021-10-17 21:50:00 [id number] CXbY+LQ8lfWoV3l6f5DSd4m+G3F1s 3kw4Gt/kBmZx4wssCpXHYyiw3LO6059-02-49U67:50:00 [facility] HospitalCardiology ConsultationREPORT#:[id number] REPORT STATUS: SignedDATE:10/17/21 TIME: 2149 PATIENT: MALU LAIRD UNIT #: [id number]#: [id number] [address] [birth year] AGE: 86 SEX: F ATTEND: Chela Blackwell [facility] AUTHOR: Bertrand Rojas MD * ALL edits [...] softLower extremity: LE assessment: no cyanosis, no edemaNeuro/BATTERY TESTER: alert, oriented X 3, normal reflexes, normal speechPsychiatry: normal affect, normal judgment/insight, normal mood ResultsFindings/Data:Laboratory Tests 10/17 1646 Blood Gas ABG [...] and anticipate discharge tomorrow. at 2159 RPT #:[id number] OF REPORTOPXvpznketfyst0137-27-54A22:50:00G.PDOC2 7966643-7215ABOehirifzq for patient tkkgVXVLODAMHHLWIK1228-35-98B52:59:23 [facility] 2021-10-17 18:53:00 [id number] L0lifzMvJGsiRRoaOzRl1b1HtX07S 95p847MGG+KSiuFVNbBx2FxhP8n7191-64-92Q80:53:99181 3-0047 [place] [address] PATIENT NAME: MALU LAIRD ADMIT DATE: 10/17/21ACCOUNT NO: [id number] ROOM NO: [facility] AGE: 86 REPORT TYPE: eELECTROCARDIOGRAM REPORT SEX: F ADMITTING PHYSICIAN:Chela Blackwell MD ATTENDING PHYSICIAN:Chela Blackwell MD Order:[id number] Reason : TAVR Test Date/Time Stamp:SatOct 17 [...] MD at 0936 PATIENT NAME: MALU LAIRD .[id number] AVAvailable for patient nqsgNNKAFOUCTKZUKR2215-28-14G30:37:02 [facility] 2021-10-17 18:24:00 [id number] zdcxAGoHN/8djKPr/YquQoxXgkT0l fipWD9XW4KMhTJ5iDOVBoB2YXem3720-93-13F63:24:79186 3-0046 [place] [address] PATIENT NAME: MALU LAIRD ADMIT DATE: 10/17/21ACCOUNT NO: [id number] ROOM NO: G.3307 AGE: 86 REPORT TYPE: eELECTROCARDIOGRAM REPORT SEX: F ADMITTING PHYSICIAN:Chela Blackwell MD ATTENDING PHYSICIAN:Chela Blackwell MD Order:[id number] Reason : S/P TAVR Test Date/Time Stamp:SatOct [...] MD at 0936 PATIENT NAME: MALU LAIRD .[id number] AVAvailable for patient kxhwOSHWDEIEMLBPRI4421-85-05J38:36:32 [facility] 2021-10-17 17:38:00 [id number]+ sFuMNf/2SjY+Wl4S0iYCmbu/x92FI rw0MXS10Llvf1FYfyZjsfItH9R81238-49-22A89:38:00 [facility] ([facility])DT Operative NoteREPORT#:[id number] REPORT STATUS: SignedDATE:10/17/21 TIME: 1738 PATIENT: MALU LAIRD UNIT #: [id number]#: [id number] [address] AGE: 86 SEX: F ATTEND: Camryn Gavin [facility] AUTHOR: Chela Blackwell MD * ALL edits [...] closure of right common femoral artery 5. 6-Icelandic Angioseal closure of the left femoral artery Surgeon: Thuan Blackwell MD Environmental Planner: MD Tony Kessler MD Anaesthesia: MAC Estimated [...] by Dr. Bey as he was the cleaner greaser. The patient was brought into the hybrid [...] instrument count were correct. at 1741 RPT #:[id number] OF REPORTOPOperative uyuoyq5325-38-67V48:38:00G.ZHIK94790411-1762YYZll ilable for patient xvzrEEDIIWVVGUQXXX7784-70-80M50:42:09 [facility] 2021-10-17 09:08:00 [id number] hEPjk9IMnaSLF2ed1JtBFpunNWY+F zbJkd9B6DEg68pdUwKMdimvRjKw2005-94-45L60:08:00 [facility] HospitalCardioth[facility] Surgery ConsultREPORT#:[id number] REPORT STATUS: SignedDATE:10/17/21 TIME: 09 PATIENT: MALU LAIRD UNIT #: [id number]#: [id number] ROOM/BED: [facility]-1DOB: [birth year] AGE: 86 SEX: F ATTEND: Chela Blackwell [facility] AUTHOR: Fox Clark NP * ALL edits or amendments must be made on the electronic/computer document * Fox Clark 10/17/21 0908:History of Present Illness HPIChief complaint:Aortic stenosisPCP:PCP: Carlyle Walter MD Requesting ClinicianDr. CarlosHPI:Ms. Laird is a very pleasant 86-year-old female with aortic stenosis being followed by her associate software engineer with serial scans. Most recent echocardiogram showed [...] urineExtremities: dry, moves allMusculoskeletal: full range of motionNeuro/BATTERY TESTER: alert, oriented X 3Skin: dry, intact Diagnosis, Assessment PlanFree Text A P:Ms. Laird is a very pleasant 86-year-old female with aortic stenosis being followed by her associate software engineer with serial scans. Most recent echocardiogram showed [...] alternatives and complications to the patient. at 0905 at 0814 [facility] #:[id number] OF REPORTZYWomuonnnkigz2057-91-58T14:08:00G.PDOC2 3845274-2124ACHgrrmrlvq for patient rjmyIBARKKQGBXRCUA2370-80-34Q00:27:53 [facility] 2021-10-12 13:57:00 [id number]+QCPvm YoXjuLrBS6zAh7Ixcx5WIqljqQJjz jXOX0AFLrNIk/zvQmGsR5Lvko9R5222-55-13H78:57:55425 [place] [address] PATIENT NAME: MALU LAIRD ADMIT DATE: ACCOUNT NO: [id number] ROOM NO: AGE: 86 REPORT TYPE: eELECTROCARDIOGRAM REPORT SEX: F ADMITTING PHYSICIAN:Camryn Gavin MD ATTENDING PHYSICIAN:Camryn Gavin MD Order:[id number] Reason : PRE OP Test Date/Time Stamp:SatOct [...] MD at 1237 PATIENT NAME: MALU LAIRD .[id number] AVAvailable for patient wyarVRJBJAASFAQIZP5100-20-00M66:38:06 [facility] 2021-09-12 08:27:00 [id number] qbYUXhgke793E5V74xUrsuYhGhOKo kQQDexmxTul6ms1XYxBsL2W6pDf4368-32-20S88:27:[address] [place] [address] PATIENT NAME: MALU LAIRD ADMIT DATE: 09/11/21ACCOUNT NO: [id number] ROOM NO: AGE: 86 REPORT TYPE: PULMONARY [...] impairment. Dictated By: Oli Bernal MD WT: PFT:G.CPS/IDA/NTSDD: 09/12/2021 08:27:18DT: 09/12/2021 09:35:06Conf#: [id number]/DID#: [id number] Authenticated by OLI BERNAL MD On 09/18/2021 02:08:12 PM at 0208 PATIENT NAME: MALU LAIRD boza3174-45-39F53:35:00G.[id number] [facility] for [facility] cpgiPVQYHPXVNJBRVR8917-07-02E75:08:42 [facility]
[2024-02-19] MEDS ORDERED: PANTOPRAZOLE 40 MG INJ ONE (11:30)
[2024-02-19] MEDS ORDERED: NA CHLORIDE 0.9% 1,000 ML ONE (11:31)
[2024-02-19 11:46] LABS: Absolute Lymphocytes (CBC) 0.7 K/uL (0.7-4.9); Absolute Monocytes 0.3 K/uL (0.1-1.3); Absolute Neutrophil 3.1 K/uL (1.8-8.0); Basophils % 0.5 % (0-1.3); Eosinophils % 1.1 % (0-4.4); Hematocrit 18.5 % (36.0-45.0); Hemoglobin 6.1 g/dL (12.0-15.0); Lymphocytes % 16.9 % (15.3-44.8); MCH 32.2 pg (27.0-35.0); MCHC 33.2 g/dL (32.0-36.0); MCV 96.9 fL (80-100); Monocytes % 6.1 % (3.3-12.3); Neutrophils % 75.4 % (41.7-73.7); Nucleated Red Blood Cells % 0.2 % (0-0); Platelets 162 thou/uL (152-406); RBC Red Blood Cell Count 1.91 M/uL (3.86-4.86); Red Cell Distribution Width 25.3 % (12.1-15.2)
[2024-02-19 11:53] LABS: PT Prothrombin Time 12.8 SECONDS (9.4-12.5); Protime INR 1.17
--- NOTE | 2024-02-19 11:56 | RAD REPORT ---
EXAM DESCRIPTION: RAD - Chest Single View - 02/19/2024 11:47 am CLINICAL HISTORY: DYSPNEA COMPARISON: Chest Pa And Lat (2 Views) dated 08/25/2021; Chest Single View dated 07/09/2018; Chest Sin gle View dated 03/26/2016; Chest Single View dated 03/25/2016 FINDINGS: Lines: None. Lungs: Increased prominence of the pulmonary vasculature. Pleural: No significant pleural effusions or pneumothorax. Cardiac: Cardiomegaly . Mediastinum: Within normal limits. Bones: No acute fractures. Other: None IMPRESSION: Pulmonary vascular congestion without birgit pulmonary edema.
[2024-02-19 12:07] LABS: AST/SGOT 16 U/L (15-37); Albumin/Globulin Ratio 0.8 (1.1-1.8); Alkaline Phosphatase 75 U/L (45-117); Anion Gap 9.2 mEq/L (5.0-15.0); BUN Blood Urea Nitrogen 33 mg/dL (7-18); Bicarbonate 26 mEq/L (21-32); Bilirubin Direct 0.2 mg/dL (0-0.2); Bilirubin Indirect, Calculated 0.5 mg/dL (0.2-0.8); Bilirubin Total 0.7 mg/dL (0.2-1.0); Globulin 3.8 g/dL (2.3-3.5); Glomerular Filtration Rate 34 ml/min (=/>90); Glucose Level 105 mg/dL (74-106); Lipase 17 U/L (13-75); Magnesium 1.9 mg/dL (1.6-2.4); NT PRO-BNP 9600 pg/mL (<450); Potassium 4.2 mEq/L (3.5-5.1); Protein, Total 6.8 g/dL (6.4-8.2); Sodium Level 140 mEq/L (136-145); Troponin High Sensitivity 42.1 pg/mL (<58.9)
[2024-02-19 12:10] LABS: ALT/SGPT < 14 U/L (13-56)
[2024-02-19 13:02] LABS: Anisocytosis 3+; Blood Morphology Comment NOTED (NOT SEEN); Platelet Estimate ADEQ; White Blood Cell Scan OK (OK)
[2024-02-19 13:03] LABS: Microcytosis 2+
[2024-02-19 13:45] LABS: Percent Reticulocyte Count 3.81 % (0.4-2.05); RBC Red Blood Cell Count 1.86 M/uL (3.86-4.86)
--- NOTE | 2024-02-19 13:57 | ER ---
Nurse's Notes [facility] Name: Agustina Laird Age: 88 yrs Sex: Female : 1935 Arrival Date: 02/19/2024 Time: 10:56 Bed 8 Private MD: Diagnosis: Syncope Near;Dyspnea;Anemia, unspecified;Anemia in other chronic diseases classified elsewhere;Unspecified kidney failure-insufficency;Persistent atrial fibrillation-RVR Presentation: 02/18 11:05 Chief complaint: Patient states: SENT BY PCP FOR LOW HEMOGLOBIN 6.3. HX OF 2 BLOOD db TRANSFUSIONS. Coronavirus screen: Client denies travel out of the [place] in the last 14 days. At this time, the client does not indicate any symptoms associated with coronavirus-19. Ebola Screen: Patient negative for fever greater than or equal to 101.5 degrees Fahrenheit, and additional compatible Ebola Virus Disease symptoms Patient denies exposure to infectious person. Patient denies travel to an Ebola-affected area in the 21 days before illness onset. No symptoms or risks identified at this time. Initial Sepsis Screen: Does the patient meet any 2 criteria? No. Patient's initial sepsis screen is negative. Does the patient have a suspected source of infection? No. Patient's initial sepsis screen is negative. Risk Assessment: Do you want to hurt yourself or someone else? Patient reports no desire to harm self or others. Onset of symptoms was February 19, 2024. 11:05 Method Of Arrival: Ambulatory db 11:05 Acuity: CAITY 3 db Triage Assessment: 11:13 General: Appears in no apparent distress. comfortable, Behavior is calm, cooperative. db Pain: Denies pain. Neuro: Level of Consciousness is awake, alert, obeys commands, Oriented to person, place, time, situation. Respiratory: Airway is patent Respiratory effort is even, unlabored, Respiratory pattern is regular, symmetrical. GI: No deficits noted. No signs and/or symptoms were reported involving the gastrointestinal system. Historical: - Allergies: 11:13 Dilaudid (Hives); db 11:13 Lovastatin (Unknown reaction); db - PMHx: 11:13 Hypertension; Gout; Depression; GERD; CAD; Arthritis; Hypothyroidism; BLOOD TRANSFUSION db (Hypothyroidism); - PSHx: 11:13 VALVE REPLACEMENT (Hypothyroidism); db - Immunization history:: Adult Immunizations unknown. - Infectious Disease History:: Denies. - Social history:: Smoking status: Patient denies any tobacco usage or history of. - Family history:: not pertinent. Screenin:53 [facility] ED Fall Risk Assessment (Adult) History of falling in the last 3 months, bp including since admission No falls in past 3 months (0 pts) Confusion or Disorientation No (0 pts) Intoxicated or Sedated No (0 pts) Impaired Gait No (0 pts) Mobility Assist Device Used No (0 pt) Altered Elimination No (0 pt) Score/Fall Risk Level 0 - 2 = Low Risk. Abuse screen: Denies threats or abuse. Denies injuries from another. Nutritional screening: No deficits noted. Tuberculosis screening: No symptoms or risk factors identified. Assessment: 11:15 General: Appears in no apparent distress. Behavior is cooperative, appropriate for age, bp anxious. 12:00 Reassessment: Patient appears in no apparent distress at this time. Patient is alert, bp oriented x 3, equal unlabored respirations, skin warm/dry/pink. 14:00 Reassessment: PRBC CONSENT SIGNED AND WITNESSED. bp 16:00 Reassessment: 1ST UNIT PRBC. bp 16:00 Reassessment: ATTEMPTED TO CALL REPORT, NO ANSWER. bp 17:00 Reassessment: ATTEMPTED TO CALL REPORT, NO ANSWER. bp 17:30 Reassessment: 2ND UNIT PRBC. bp 17:30 Reassessment: PT DECLINING TRANSFER, MD AT B/S FOR C/S. bp 17:45 Reassessment: ACUTE EKG CHANGE. MD AT B/S, NOTED AFIB/RVR. bp 18:30 Reassessment: ATTEMPTED TO CALL REPORT, NO ANSWER. bp 19:59 General: Report called to [facility]. pt transferred via ground ambulance. . kd3 Vital Signs: 11:05 BP 144 / 52; Pulse 78; Resp 18; Temp 97.8(O); Pulse Ox 99% on R/A; Weight 68.95 kg; db Height 5 ft. 5 in. ; 12:00 BP 128 / 46; Pulse 65; Resp 15; Pulse Ox 96% ; bp 14:00 BP 133 / 49; Pulse 63; Resp 16; Pulse Ox 96% ; bp 16:00 BP 144 / 49; Pulse 79; Resp 15; Temp 97.9; Pulse Ox 100% ; bp 17:30 BP 125 / 53; Pulse 107; Resp 18; Temp 97.9; Pulse Ox 100% ; bp 18:00 BP 141 / 73; Pulse 121; Resp 16; Temp 98; Pulse Ox 100% ; bp 19:09 BP 131 / 48; Pulse 67; Resp 16; Pulse Ox 96% on R/A; kd3 19:43 BP 156 / 61; Pulse 68; Resp 17; Pulse Ox 96% on R/A; kd3 11:05 Body Mass Index 25.29 (68.95 kg, 165.1 cm) db ED Course: 10:58 Patient arrived in ED. im 11:05 Chele Mckeon, RN is Primary Nurse. bp 11:06 Georgi Carrasco MD is Attending Physician. etrry 11:13 Triage completed. db 11:13 Arm band placed on Patient placed in an exam room. db 11:48 XRAY Chest (1 view) In Process Unspecified. EDMS 11:58 EKG done, by ED staff. aw1 13:34 Iron Level Sent. me1 13:35 TIBC Sent. me1 13:35 Ferritin Sent. me1 13:35 B12 Sent. me1 13:35 Retic Count Sent. me1 13:35 Urinalysis w/ reflexes Sent. me1 13:35 Repeat lab(s) drawn. by me, sent to lab. Urine collected: clean catch specimen, clear, me1 EKG done. 13:53 Patient has correct armband on for positive identification. Consent for blood and/or bp blood product transfusion explained by staff, explained by physician, signed by patient. 13:53 Inserted saline lock: 22 gauge in left antecubital area, using aseptic technique. Blood bp collected. 14:30 at the family request for [facility] , Dr Carrasco initiated transfer. bc6 15:20 received acceptance from delesha at [facility]. bc6 19:39 patient was accepted for transfer via ground by [facility]. vk 20:00 No provider procedures requiring assistance completed. Patient transferred, IV remains kd3 in place. 20:01 Provided Education on: Transfer . kd3 Administered Medications: 11:35 Drug: NS 0.9% IV 1000 ml IV at 125 ml/hr continuous Route: IV; Rate: 125 ml/hr; Site: ko1 left antecubital; 11:35 Drug: Pantoprazole IVP 40 mg IVP once Route: IVP; Site: left antecubital; ko1 13:35 Follow up: Response: No adverse reaction me1 17:48 Drug: diphenhydrAMINE IVP 12.5 mg IVP once Route: IVP; Site: left antecubital; bp 17:48 Drug: Acetaminophen PO 650 mg PO once Route: PO; bp 18:00 Drug: Metoprolol IVP 2.5 mg IVP once; Hold for SBP <100 or HR <60. Route: IVP; Site: bp left antecubital; 18:11 Drug: Metoprolol PO 50 mg PO once Route: PO; bp 18:12 Drug: Metoprolol IVP 2.5 mg IVP once; Hold for SBP <100 or HR <60. Route: IVP; Site: bp left antecubital; 19:17 Not Given (Hemodynamic Parameters): metoprolol2.5 mg IVP once; Hold for SBP <100 or HR bp <60. Medication: 19:44 VIS not applicable for this client. kd3 Outcome: 13:56 ER care complete, transfer ordered by MD. stewart 20:01 Transferred by ground EMS kd3 20:01 Condition: stable 20:01 Discharge instructions given to patient, Instructed on the need for transfer, Demonstrated understanding of instructions, follow-up care, 20:01 Patient left the ED. kd3 Signatures: Dispatcher [employer] Georgi Saldaña MD MD cha Peltier, Brian, RN RN Joanne De La Cruz RN RN kd3 Kala Storey RN RN Pam Lenz, RN Sydni Salgado [facility] Alma James Alyssa 1 Tanya Abraham, JUSTICE RN 1 Desiree Mann
--- NOTE | 2024-02-19 13:57 | EDPHYS ---
Physician Documentation [facility] Name: Agustina Laird Age: 88 yrs Sex: Female : 1935 Arrival Date: 02/19/2024 Time: 10:56 Bed 8 Private MD: ED Physician Georgi Carrasco HPI: 02/18 13:49 This 88 yrs old Female presents to ER via Ambulatory with complaints of terry Abnormal Lab Results. 13:49 weak, hgb 6.1. The patient has experienced near-syncope, almost passed out, felt dizzy, terry felt faint, felt generally weak, felt like heart was pounding. Onset: The symptoms/episode began/occurred 5 day(s) ago. Duration: The patient has had multiple episodes, that last 30 second(s). The patient presents with generalized weakness, lightheadedness. Modifying factors: The symptoms are alleviated by lying down, the symptoms are aggravated by standing up, changing position. Associated signs and symptoms: The patient has no apparent associated signs or symptoms. Severity of symptoms: At their worst the symptoms were moderate in the emergency department the symptoms are unchanged. Context: the episode(s) was witnessed, by family, sister, occurred at home, occurred while the patient was walking. Associated injury: The patient did not suffer any apparent associated injury. Associated signs and symptoms: Pertinent positives: dizziness, nausea, shortness of breath, weakness. Current symptoms: Currently, the patient is not experiencing any symptoms. Historical: - Allergies: 11:13 Dilaudid (Hives); db 11:13 Lovastatin (Unknown reaction); db - PMHx: 11:13 Hypertension; Gout; Depression; GERD; CAD; Arthritis; Hypothyroidism; BLOOD TRANSFUSION db (Hypothyroidism); - PSHx: 11:13 VALVE REPLACEMENT (Hypothyroidism); db - Immunization history:: Adult Immunizations unknown. - Infectious Disease History:: Denies. - Social history:: Smoking status: Patient denies any tobacco usage or history of. - Family history:: not pertinent. ROS: 13:49 Constitutional: Negative for fever, chills, and weight loss, Eyes: Negative for injury, terry pain, redness, and discharge, ENT: Negative for injury, pain, and discharge, Neck: Negative for injury, pain, and swelling, Cardiovascular: Negative for chest pain, palpitations, and edema, Abdomen/GI: Negative for abdominal pain, nausea, vomiting, diarrhea, and constipation, Back: Negative for injury and pain, : Negative for injury, bleeding, discharge, and swelling, MS/Extremity: Negative for injury and deformity, Neuro: Negative for headache, weakness, numbness, tingling, and seizure, Psych: Negative for depression, anxiety, suicide ideation, homicidal ideation, and hallucinations, Allergy/Immunology: Negative for hives, rash, and allergies, Endocrine: Negative for neck swelling, polydipsia, polyuria, polyphagia, and marked weight changes, Hematologic/Lymphatic: Negative for swollen nodes, abnormal bleeding, and unusual bruising, 13:49 Respiratory: Positive for cough, shortness of breath, 13:49 Abdomen/GI: Negative for abdominal pain, nausea and vomiting, nausea, vomiting, black/tarry stool, rectal pain, rectal bleeding, 13:49 Neuro: Positive for dizziness, weakness, Exam: 13:49 Constitutional: This is a well developed, well nourished patient who is awake, alert, terry and in no acute distress. Head/Face: Normocephalic, atraumatic. Eyes: Pupils equal round and reactive to light, extra-ocular motions intact. Lids and lashes normal. Conjunctiva and sclera are non-icteric and not injected. Cornea within normal limits. Periorbital areas with no swelling, redness, or edema. ENT: Nares patent. No nasal discharge, no septal abnormalities noted. Tympanic membranes are normal and external auditory canals are clear. Oropharynx with no redness, swelling, or masses, exudates, or evidence of obstruction, uvula midline. Mucous membranes moist. Neck: Trachea midline, no thyromegaly or masses palpated, and no cervical lymphadenopathy. Supple, full range of motion without nuchal rigidity, or vertebral point tenderness. No Meningismus. Chest/axilla: Normal chest wall appearance and motion. Nontender with no deformity. No lesions are appreciated. Cardiovascular: Regular rate and rhythm with a normal S1 and S2. No gallops, murmurs, or rubs. Normal PMI, no JVD. No pulse deficits. Respiratory: Lungs have equal breath sounds bilaterally, clear to auscultation and percussion. No rales, rhonchi or wheezes noted. No increased work of breathing, no retractions or nasal flaring. Abdomen/GI: Soft, non-tender, with normal bowel sounds. No distension or tympany. No guarding or rebound. No evidence of tenderness throughout. Back: No spinal tenderness. No costovertebral tenderness. Full range of motion. Female : Normal external genitalia. MS/ Extremity: Pulses equal, no cyanosis. Neurovascular intact. Full, normal range of motion. Psych: Awake, alert, with orientation to person, place and time. Behavior, mood, and affect are within normal limits. 13:49 Skin: Appearance: Color: pale, abscess, not appreciated, cellulitis, is not appreciated, induration, is not appreciated, injury, is not appreciated, no rash present. Turgor: is excellent, 17:51 ECG was reviewed by the Attending Physician. terry 19:43 ECG was reviewed by the Attending Physician. [facility] 19:58 ECG was reviewed by the Attending Physician. [facility] Vital Signs: 11:05 BP 144 / 52; Pulse 78; Resp 18; Temp 97.8(O); Pulse Ox 99% on R/A; Weight 68.95 kg; db Height 5 ft. 5 in. ; 12:00 BP 128 / 46; Pulse 65; Resp 15; Pulse Ox 96% ; bp 14:00 BP 133 / 49; Pulse 63; Resp 16; Pulse Ox 96% ; bp 16:00 BP 144 / 49; Pulse 79; Resp 15; Temp 97.9; Pulse Ox 100% ; bp 17:30 BP 125 / 53; Pulse 107; Resp 18; Temp 97.9; Pulse Ox 100% ; bp 18:00 BP 141 / 73; Pulse 121; Resp 16; Temp 98; Pulse Ox 100% ; bp 19:09 BP 131 / 48; Pulse 67; Resp 16; Pulse Ox 96% on R/A; kd3 19:43 BP 156 / 61; Pulse 68; Resp 17; Pulse Ox 96% on R/A; kd3 11:05 Body Mass Index 25.29 (68.95 kg, 165.1 cm) db MDM: 11:06 Patient medically screened. terry 13:52 Differential Diagnosis altered mental status, sepsis, flu. Differential Diagnosis: terry cardiac arrhythmia, cardiac arrhythmia, generalized weakness, GI bleed, hypovolemia, idiopathic dizziness, near-syncope, syncope, TIA. Data reviewed: vital signs, nurses notes, lab test result(s), EKG, radiologic studies. Consideration of Admission/Observation Escalation of care including admission/observation considered. I considered the following discharge prescriptions or medication management in the emergency department Medications were administered in the Emergency Department. See MAR. Independent interpretation of the following test(s) in the Emergency Department EKG: See my EKG interpretation above. Test considered but Not performed: Ultrasound no abd usg. Care significantly affected by the following chronic conditions: Hypertension, gerd, cad, hypothyroid, oa, gout. 02/18 11:07 Order name: Type And Screen [facility] 02/18 11:07 Order name: Basic Metabolic Panel; Complete Time: 13:10 [facility] 02/18 11:07 Order name: CBC with Diff; Complete Time: 13:10 [facility] 02/18 11:07 Order name: LFT's; Complete Time: 13:10 [facility] 02/18 11:07 Order name: Magnesium; Complete Time: 13:10 [facility] 02/18 11:07 Order name: NT PRO-BNP; Complete Time: 13:10 [facility] 02/18 11:07 Order name: PT-INR; Complete Time: 13:10 [facility] 02/18 11:07 Order name: Troponin HS; Complete Time: 13:10 [facility] 02/18 11:07 Order name: Lipase; Complete Time: 13:10 [facility] 02/18 11:07 Order name: Urinalysis w/ reflexes; Complete Time: 17:23 [facility] 02/18 12:37 Order name: Packed RBC Leukored [facility] 02/18 13:03 Order name: CBC Smear Scan; Complete Time: 13:10 [facility] 02/18 13:16 Order name: Retic Count; Complete Time: 17:23 [facility] 02/18 13:16 Order name: B12; Complete Time: 17:23 [facility] 02/18 13:16 Order name: Ferritin; Complete Time: 17:23 [facility] 02/18 13:16 Order name: Iron Level [facility] 02/18 13:16 Order name: TIBC; Complete Time: 17:23 [facility] 02/18 11:07 Order name: XRAY Chest (1 view); Complete Time: 13:10 [facility] 02/18 11:07 Order name: Cardiac monitoring; Complete Time: 11:23 [facility] 02/18 11:07 Order name: EKG - Nurse/Tech; Complete Time: 11:58 [facility] 02/18 11:07 Order name: IV Saline Lock; Complete Time: 11:58 [facility] 02/18 11:07 Order name: Labs collected and sent; Complete Time: 11:58 [facility] 02/18 11:07 Order name: O2 Per Protocol; Complete Time: 11:23 [facility] 02/18 11:07 Order name: O2 Sat Monitoring; Complete Time: 11:23 [facility] 02/18 13:16 Order name: Transfuse; Complete Time: 15:57 [facility] 02/18 17:48 Order name: EKG - Nurse/Tech; Complete Time: 17:48 bp EC:51 Rate is 124 beats/min. Rhythm is irregularly irregular. QRS [place] is Normal. NM interval terry is normal. QRS interval is normal. QT interval is normal. No Q waves. T waves are Normal. Clinical impression: Atrial Fibrillation. Interpreted by me. Reviewed by me. 19:43 Rate is 68 beats/min. Rhythm is regular. QRS [place] is Normal. NM interval is normal. QRS terry interval is normal. QT interval is normal. No Q waves. T waves are Normal. Clinical impression: NSR w/ Non-specific ST/T Changes and No evidence of ischemia. Interpreted by me. Reviewed by me. 19:58 Rate is 76 beats/min. Rhythm is regular. QRS [place] is Normal. NM interval is normal. QRS terry interval is normal. QT interval is normal. No Q waves. T waves are Normal. No ST changes noted. Clinical impression: Abnormal EKG without significant change and No evidence of ischemia. Reviewed by me. Administered Medications: 11:35 Drug: NS 0.9% IV 1000 ml IV at 125 ml/hr continuous Route: IV; Rate: 125 ml/hr; Site: ko1 left antecubital; 11:35 Drug: Pantoprazole IVP 40 mg IVP once Route: IVP; Site: left antecubital; ko1 13:35 Follow up: Response: No adverse reaction me1 17:48 Drug: diphenhydrAMINE IVP 12.5 mg IVP once Route: IVP; Site: left antecubital; bp 17:48 Drug: Acetaminophen PO 650 mg PO once Route: PO; bp 18:00 Drug: Metoprolol IVP 2.5 mg IVP once; Hold for SBP <100 or HR <60. Route: IVP; Site: bp left antecubital; 18:11 Drug: Metoprolol PO 50 mg PO once Route: PO; bp 18:12 Drug: Metoprolol IVP 2.5 mg IVP once; Hold for SBP <100 or HR <60. Route: IVP; Site: bp left antecubital; 19:17 Not Given (Hemodynamic Parameters): metoprolol2.5 mg IVP once; Hold for SBP <100 or HR bp <60. Disposition Summary: 02/19/24 13:56 Transfer Ordered Notes: Transfer Location: [facility] terry Reason: Higher level of care terry Condition: Fair terry Problem: new terry Symptoms: have improved terry Accepting Physician: to voodoo(02/19/24 20:01) kd3 Diagnosis - Syncope Near terry - Dyspnea terry - Anemia, unspecified terry - Anemia in other chronic diseases classified elsewhere terry - Unspecified kidney failure - insufficency terry - Persistent atrial fibrillation - RVR terry Forms: - Medication Reconciliation Form terry - SBAR form terry Signatures: Dispatcher [employer] EDMS Georgi Carrasco MD MD cha Peltier, Brian, RN RN Joanne De La Cruz RN RN kd3 Kala Storey RN RN ko1 Pam Blevins, RN RN db Tanya Abraham RN me1 Corrections: (The following items were deleted from the chart) 11:07 11:07 Chest Single View+RAD.RAD.BRZ ordered. EDMS EDMS 13:23 13:16 PACKED RBC LEUKORED+BB.LAB.BRZ ordered. EDMS EDMS 13:23 13:19 ABO/RH typing ordered. EDMS EDMS 13:23 13:19 Antibody Screen ordered. EDMS EDMS 17:49 13:56 to voodoo terry terry 20:01 17:49 to voodoo terry kd3
[2024-02-19 14:07] LABS: Specific Gravity 1.008 (1.005-1.030); Sqamous Epithelial None Seen /HPF (None Seen); Urine Bacteria None Seen /HPF (<20); Urine Bilirubin NEGATIVE (Negative); Urine Blood Negative (Negative); Urine Clarity Clear (Clear); Urine Color Colorless (Yellow); Urine Culture Reflex Order NOT NEEDED; Urine Glucose NEGATIVE (Negative); Urine Ketones NEGATIVE (Negative); Urine Microscopic Reflex YN ORDER UMIC; Urine Mucus Slight /HPF (None Seen); Urine Nitrite NEGATIVE (Negative); Urine Protein NEGATIVE (Negative); Urine RBC <5 /HPF (None Seen); Urine Urobilinogen Normal (Normal); Urine WBC <5 /HPF (<5); Urine pH 5.5 (5.0-7.0)
[2024-02-19 14:23] LABS: Ferritin 254.6 ng/mL (8-388)
[2024-02-19] MEDS ORDERED: NA CHLORIDE 0.9% 250 ML ONE (15:19)
[2024-02-19] MEDS ORDERED: ACETAMINOPHEN 325 MG TABLET ONE (17:37)
[2024-02-19] MEDS ORDERED: DIPHENHYDRAMINE 50 MG/ML VIAL ONE (17:37)
[2024-02-19] MEDS ORDERED: METOPROLOL TAR 50 MG TAB ONE (18:03)
[2024-02-19] MEDS ORDERED: METOPROLOL TARTRATE 5 MG/5 ML INJ IV ONE (18:03)
[2024-02-19 20:41] VITALS: BP 156/61; TEMP 98; O2SAT 96
--- NOTE | 2024-02-23 10:35 | EKG ---
Test Date: 2024-02-19 Test Time: 17:44:58 Product Support Engineer: MEASUREMENT RESULTS: Intervals: Rate: 124 [place]: QRSD: 136 QT: 350 QTc: 502 [place]: P: OH: QRS: 53 T: 215 INTERPRETIVE STATEMENTS: Atrial fibrillation with rapid ventricular response Left bundle branch block Abnormal ECG Compared to ECG 02/19/2024 11:56:13 Sinus rhythm no longer present Electronically Signed On 02-23-24 10:32:33 CDT by Arnold Gomez
--- NOTE | 2024-02-23 10:36 | EKG ---
Test Date: 2024-02-19 Test Time: 11:56:13 Hand Expansion Envelope Maker: JAUN MEASUREMENT RESULTS: Intervals: Rate: 76 MD: 136 QRSD: 122 QT: 454 QTc: 510 [place]: P: 23 MD: 136 QRS: 43 T: 217 INTERPRETIVE STATEMENTS: Normal sinus rhythm Left bundle branch block Abnormal ECG Compared to ECG 08/25/2021 10:45:54 Left bundle-branch block now present Sinus bradycardia no longer present ST (T wave) deviation no longer present Possible ischemia no longer present Electronically Signed On 02-23-24 10:35:32 CDT by Arnold Gomez
== END 2024-02-19 20:01 | disposition short-term general hospital (02) ==
LOC: ER 10:56
PROC: 30233N1 Transfusion of Nonautologous Red Blood Cells into Peripheral Vein, Percutaneous Approach (ICD-10-PCS; principal; 2024-02-19)
DX: D64.9 Anemia, unspecified (principal); N19 Unspecified kidney failure; R06.00 Dyspnea, unspecified; I48.19 Other persistent atrial fibrillation; I10 Essential (primary) hypertension
CPT/HCPCS: 93005 ×2; 85025; 81001; 80048; 36415; 86900; 83735; 86850; 85610; 85044; 86902; 86901; 80076; 86920 ×2; 84484; 82728; 82607; 83690; 83540; 86922 ×2; 83880; 84466; 71045; 96375; 96374; 99285; 36430; J1200; C9113; P9016 ×2; J7050; J7030

== ENCOUNTER 2024-03-26 09:47 | Emergency (ER) | payer OTHER ==
[2024-03-26 11:24] LABS: Absolute Eosinophils 0.1 K/uL (0-0.5); Absolute Lymphocytes (CBC) 0.7 K/uL (0.7-4.9); Absolute Monocytes 0.3 K/uL (0.1-1.3); Absolute Neutrophil 2.9 K/uL (1.8-8.0); Basophils % 0.6 % (0-1.3); Eosinophils % 1.5 % (0-4.4); Hematocrit 18.7 % (36.0-45.0); Hemoglobin 6.1 g/dL (12.0-15.0); Lymphocytes % 16.6 % (15.3-44.8); MCH 32.1 pg (27.0-35.0); MCHC 32.8 g/dL (32.0-36.0); MCV 97.7 fL (80-100); MPV 9.3 fL (7.6-11.3); Monocytes % 8.5 % (3.3-12.3); Neutrophils % 72.8 % (41.7-73.7); Nucleated Red Blood Cells % 0.1 % (0-0); Platelets 122 thou/uL (152-406); RBC Red Blood Cell Count 1.91 M/uL (3.86-4.86); Red Cell Distribution Width 25.3 % (12.1-15.2)
[2024-03-26 12:40] LABS: Band Neutrophils 10 % (0-1); Differential Total Cells Count 100; Lymphocytes 24 % (15-42); Monocytes 9 % (0-10); Segmented Neutrophils 57 % (40-80)
[2024-03-26 12:41] LABS: Anisocytosis 3+; Blood Morphology Comment NOTED (NOT SEEN); Hypochromasia 2+; Platelet Estimate DECR; Platelets Clumped FEW; Poikilocytosis 1+; Polychromasia 1+
[2024-03-26] MEDS ORDERED: NA CHLORIDE 0.9% 250 ML ONE (15:03)
--- NOTE | 2024-03-26 19:11 | ER ---
Nurse's Notes [facility] Name: Agustina Laird Age: 88 yrs Sex: Female : 1935 Arrival Date: 03/26/2024 Time: 09:47 Bed 16 Private MD: Diagnosis: Other specified anemias Presentation: 03/26 10:26 Chief complaint: Patient states: she was sent here by her PCP for a HBG of 6.5. kc Coronavirus screen: At this time, the client does not indicate any symptoms associated with coronavirus-19. Ebola Screen: No symptoms or risks identified at this time. Initial Sepsis Screen: Does the patient meet any 2 criteria? No. Patient's initial sepsis screen is negative. Does the patient have a suspected source of infection? No. Patient's initial sepsis screen is negative. Risk Assessment: Do you want to hurt yourself or someone else? Patient reports no desire to harm self or others. Onset of symptoms was March 26, 2024. 10:26 Method Of Arrival: Wheelchair kc 10:26 Acuity: CAITY 3 kc6 Triage Assessment: 10:27 General: Appears in no apparent distress. comfortable, well groomed, well developed, kc6 Behavior is calm, cooperative, appropriate for age. Pain: Denies pain. EENT: No signs and/or symptoms were reported regarding the EENT system. Neuro: Level of Consciousness is awake, alert, obeys commands, Oriented to person, place, time, situation, Appropriate for age. Cardiovascular: Capillary refill < 3 seconds. Respiratory: Airway is patent Trachea midline Respiratory effort is even, unlabored, Respiratory pattern is regular, symmetrical. GI: No signs and/or symptoms were reported involving the gastrointestinal system. : No signs and/or symptoms were reported regarding the genitourinary system. Derm: No signs and/or symptoms reported regarding the dermatologic system. Skin is intact, is healthy with good turgor, Skin is pink, warm \T\ dry. Musculoskeletal: No signs and/or symptoms reported regarding the musculoskeletal system. Circulation, motion, and sensation intact. Capillary refill < 3 seconds, Range of motion: intact in all extremities. Historical: - Allergies: 10:27 Dilaudid (Hives); kc6 10:27 Lovastatin (Unknown reaction); kc6 - PMHx: 10:27 Arthritis; CAD; Depression; GERD; Gout; Hypertension; Hypothyroidism; blood kc6 transfusion; Anemia; myeloma dysplastic syndrome; - PSHx: 10:27 mechanical aortic valve replacement; bladder reconstruction surgery; kc6 - Immunization history:: Adult Immunizations up to date. - Infectious Disease History:: Denies. - Social history:: Smoking status: Patient denies any tobacco usage or history of. - Family history:: not pertinent. - Hospitalizations: : No recent hospitalization is reported. Screenin:30 [facility] ED Fall Risk Assessment (Adult) History of falling in the last 3 months, kc6 including since admission No falls in past 3 months (0 pts) Confusion or Disorientation No (0 pts) Intoxicated or Sedated No (0 pts) Impaired Gait Yes (1 pt) Mobility Assist Device Used Yes (1 pt) Altered Elimination No (0 pt) Score/Fall Risk Level 0 - 2 = Low Risk. Abuse screen: Denies threats or abuse. Denies injuries from another. Nutritional screening: No deficits noted. Tuberculosis screening: No symptoms or risk factors identified. Assessment: 10:31 Reassessment: please see triage. [facility] 11:31 Reassessment: Patient appears in no apparent distress at this time. No changes from [facility] previously documented assessment. Patient and/or family updated on plan of care and expected duration. Pain level reassessed. Patient is alert, oriented x 3, equal unlabored respirations, skin warm/dry/pink. Vital Signs: 10:26 BP 124 / 41; Pulse 69; Resp 16 S; Temp 97.9(O); Pulse Ox 100% on R/A; Weight 67.59 kg kc6 (R); Height 5 ft. 5 in. (R); Pain 0/10; 11:27 BP 116 / 39; Pulse 64; Resp 14 S; Pulse Ox 98% on R/A; kc6 12:08 BP 131 / 55; Pulse 69; Resp 18; Pulse Ox 97% on R/A; tl4 13:00 BP 145 / 76; Pulse 64; Resp 18; Pulse Ox 98% on R/A; tl4 14:03 BP 128 / 45; Pulse 67; Resp 14; Pulse Ox 97% on R/A; tl4 15:11 BP 154 / 45; Pulse 75; Resp 19; Pulse Ox 98% on R/A; tl4 10:26 Body Mass Index 24.79 (67.59 kg, 165.1 cm) 6 10:26 Pain Scale: Adult [facility] ED Course: 09:49 Patient arrived in ED. im 10:04 Luis Nunez MD is Attending Physician. rn 10:08 Varsha Concepcion RN is Primary Nurse. 6 10:27 Triage completed. kc6 10:27 Arm band placed on. kc6 10:30 Patient has correct armband on for positive identification. Bed in low position. Call 6 light in reach. Side rails up X 1. Adult w/ patient. cafeteria monitor on. Pulse ox on. NIBP on. Door closed. Noise minimized. Lights dimmed. Warm blanket given. Pillow given. 10:59 EKG done, by ED staff, reviewed by Luis Nunez MD. Inserted saline lock: 20 gauge in [facility] right forearm, using aseptic technique. Blood collected. Flushed with 10 mL NS. 12:05 Report given to Asael Bond RN. [facility] 12:08 Provided Education on: call genet, ed process. tl4 12:15 Placed in gown. tl4 15:06 Provided Education on: Blood Transfusion. tl4 15:15 Consent for blood and/or blood product transfusion explained by staff, signed by tl4 patient. 16:13 Packed RBC Leukored Sent. tl4 16:13 Bb Add On Sent. tl4 18:47 No provider procedures requiring assistance completed. tl4 Administered Medications: No medications were administered Medication: 15:22 VIS not applicable for this client. Blood products: PRBCs X 2 units given. See tl4 transfusion record. Outcome: 19:10 Discharge ordered by . bo1 19:28 Discharged to home ambulatory, with family, tl4 19:28 Condition: stable 19:28 Discharge instructions given to patient, Instructed on discharge instructions, follow up and referral plans. Demonstrated understanding of instructions, follow-up care, 19:28 Patient left the ED. tl4 Signatures: Luis Nunez MD MD rn Campbell, Kaitlyn, RN RN [facility] [place] James Asael Asif RN RN tl4 Nazario Pena MD MD bo1 Corrections: (The following items were deleted from the chart) 18:49 12:08 Provided Education on: call genet, ed process. tl4 tl4 18:50 18:49 Placed in gown. tl4 tl4
--- NOTE | 2024-03-26 19:11 | EDPHYS ---
Physician Documentation [facility] Name: Agustina Laird Age: 88 yrs Sex: Female : 1935 Arrival Date: 03/26/2024 Time: 09:47 Bed 16 Private MD: ED Physician Luis Nunez HPI: 03/26 12:19 This 88 yrs old Female presents to ER via Wheelchair with complaints of Abnormal anesthesiology crna Results. 12:19 Patient reports low hemoglobin, was 6.5, has MDS, gets frequent blood transfusions. rn Feels weak but no fever/chills/syncope/chest pain/sob. . Onset: The symptoms/episode began/occurred at an unknown time. Severity of symptoms: At their worst the symptoms were mild in the emergency department the symptoms are unchanged. The patient has not experienced similar symptoms in the past. The patient has not recently seen a physician. Historical: - Allergies: 10:27 Dilaudid (Hives); kc6 10:27 Lovastatin (Unknown reaction); kc6 - PMHx: 10:27 Arthritis; CAD; Depression; GERD; Gout; Hypertension; Hypothyroidism; blood kc6 transfusion; Anemia; myeloma dysplastic syndrome; - PSHx: 10:27 mechanical aortic valve replacement; bladder reconstruction surgery; kc6 - Immunization history:: Adult Immunizations up to date. - Infectious Disease History:: Denies. - Social history:: Smoking status: Patient denies any tobacco usage or history of. - Family history:: not pertinent. - Hospitalizations: : No recent hospitalization is reported. ROS: 12:19 Constitutional: Negative for fever, chills, and weight loss, Cardiovascular: Negative rn for chest pain, palpitations, and edema, Respiratory: Negative for shortness of breath, cough, wheezing, and pleuritic chest pain, Abdomen/GI: Negative for abdominal pain, nausea, vomiting, diarrhea, and constipation, Back: Negative for injury and pain, MS/Extremity: Negative for injury and deformity, Skin: Negative for injury, rash, and discoloration, Neuro: + generalized weakness Exam: 12:19 Constitutional: This is a well developed, well nourished patient who is awake, alert, rn and in no acute distress. Eyes: pale conjunctivae Cardiovascular: Regular rate and rhythm. No pulse deficits. Respiratory: No increased work of breathing, no retractions or nasal flaring. 13:11 ECG was reviewed by the Attending Physician. rn Vital Signs: 10:26 BP 124 / 41; Pulse 69; Resp 16 S; Temp 97.9(O); Pulse Ox 100% on R/A; Weight 67.59 kg kc6 (R); Height 5 ft. 5 in. (R); Pain 0/10; 11:27 BP 116 / 39; Pulse 64; Resp 14 S; Pulse Ox 98% on R/A; kc6 12:08 BP 131 / 55; Pulse 69; Resp 18; Pulse Ox 97% on R/A; tl4 13:00 BP 145 / 76; Pulse 64; Resp 18; Pulse Ox 98% on R/A; tl4 14:03 BP 128 / 45; Pulse 67; Resp 14; Pulse Ox 97% on R/A; tl4 15:11 BP 154 / 45; Pulse 75; Resp 19; Pulse Ox 98% on R/A; tl4 10:26 Body Mass Index 24.79 (67.59 kg, 165.1 cm) kc6 10:26 Pain Scale: Adult kc6 MDM: 10:04 Patient medically screened. rn 19:21 Differential Diagnosis Anemia - myelodyplastic syndrome. ED course: Pt has been given bo1 two units of blood and has tolerated the transfusion w/o untoward symptoms. She will be discharged home for F/U. She has myelodyplastic syndrome and is due to have treatment in March for the condition. This is her 4th blood transfusion since Sep 2023. Pt has her family with her. 19:23 Data reviewed: vital signs, lab test result(s), CBC. bo1 03/26 10:25 Order name: Type And Screen rn 03/26 10:25 Order name: CBC with Diff; Complete Time: 14:16 rn 03/26 12:11 Order name: Bb Add On bd 03/26 12:36 Order name: Manual Differential; Complete Time: 14:16 EDMS 03/26 13:25 Order name: Packed RBC Leukored EDMS 03/26 10:25 Order name: IV Start; Complete Time: 10:47 rn 03/26 10:25 Order name: Cardiac monitoring; Complete Time: 10:34 rn 03/26 14:16 Order name: Transfuse; Complete Time: 16:13 rn EC:11 Rate is 66 beats/min. Rhythm is regular. QRS [place] is Normal. [place] interval is normal. QRS rn interval is normal. QT interval is normal. No Q waves. T waves are Normal. No ST changes noted. Clinical impression: NSR w/ Non-specific ST/T Changes. Interpreted by me. Reviewed by me. Administered Medications: No medications were administered Disposition Summary: 03/26/24 19:10 Discharge Ordered Notes: Location: Home bo1 Problem: an acute exacerbation bo1 Symptoms: have improved bo1 Condition: Stable bo1 Diagnosis - Other specified anemias bo1 Followup: bo1 - With: Private Physician - When: Tomorrow - Reason: Continuance of care Discharge Instructions: - Discharge Summary Sheet bo1 - Anemia bo1 - Myelodysplastic Syndrome bo1 Forms: - Medication Reconciliation Form bo1 - Antibiotic Education bo1 - Prescription Opioid Use bo1 - Patient Portal Instructions bo1 - Leadership Thank You Letter bo1 Signatures: Dispatcher [employer] EDMS Luis Nunez MD MD rn Campbell, Kaitlyn, RN RN kc6 Nazario Pena MD MD bo1 Corrections: (The following items were deleted from the chart) 12:36 11:28 CBC Smear Scan ordered. EDMS EDMS
[2024-03-26 19:32] VITALS: TEMP 97.9
[2024-03-26 19:38] VITALS: BP 154/45; O2SAT 98
--- NOTE | 2024-03-27 14:09 | EKG ---
Test Date: 2024-03-26 Test Time: 10:56:06 Dressing Machine Operator: JACIEL MEASUREMENT RESULTS: Intervals: Rate: 66 WV: 188 QRSD: 140 QT: 456 QTc: 478 [place]: P: 64 WV: 188 QRS: 48 T: 229 INTERPRETIVE STATEMENTS: Normal sinus rhythm Left ventricular hypertrophy with QRS widening and repolarization abnormality Abnormal ECG Compared to ECG 02/19/2024 17:44:58 Left ventricular hypertrophy now present Early repolarization now present Atrial fibrillation no longer present Left bundle-branch block no longer present Electronically Signed On 03-27-24 14:05:54 CDT by Marquez Bey
== END 2024-03-26 19:28 | disposition home or self-care (01) ==
LOC: ER 09:47
DX: D64.89 Other specified anemias (principal); I10 Essential (primary) hypertension; Z95.2 Presence of prosthetic heart valve
CPT/HCPCS: 93005; 85025; 36415; 86900; 86850; 86902; 86901; 86920 ×2; 86922 ×2; 36430; 99285; P9016 ×3; J7050

== ENCOUNTER 2024-04-29 10:00 | Inpatient (IN) | payer OTHER ==
[2024-04-29 10:37] LABS: Absolute Eosinophils 0.1 K/uL (0-0.5); Absolute Lymphocytes (CBC) 0.9 K/uL (0.7-4.9); Absolute Monocytes 0.4 K/uL (0.1-1.3); Absolute Neutrophil 4.1 K/uL (1.8-8.0); Basophils % 0.8 % (0-1.3); Eosinophils % 1.5 % (0-4.4); Hematocrit 21.2 % (36.0-45.0); Hemoglobin 6.9 g/dL (12.0-15.0); Lymphocytes % 16.5 % (15.3-44.8); MCH 32.6 pg (27.0-35.0); MCHC 32.6 g/dL (32.0-36.0); MCV 100.2 fL (80-100); MPV 9.2 fL (7.6-11.3); Monocytes % 7.2 % (3.3-12.3); Nucleated Red Blood Cells % 0.3 % (0-0); Platelets 155 thou/uL (152-406); RBC Red Blood Cell Count 2.12 M/uL (3.86-4.86); Red Cell Distribution Width 24.6 % (12.1-15.2)
[2024-04-29 10:40] LABS: PT Prothrombin Time 12.3 SECONDS (9.4-12.5); Protime INR 1.1
[2024-04-29 10:54] LABS: Sqamous Epithelial <5 /HPF (None Seen); Urine Bacteria None Seen /HPF (<20); Urine Bilirubin NEGATIVE (Negative); Urine Blood Negative (Negative); Urine Clarity Turbid (Clear); Urine Color Light-Yellow (Yellow); Urine Culture Reflex Order NOT NEEDED; Urine Glucose NEGATIVE (Negative); Urine Ketones NEGATIVE (Negative); Urine Microscopic Reflex YN ORDER UMIC; Urine Mucus Slight /HPF (None Seen); Urine Nitrite NEGATIVE (Negative); Urine Protein NEGATIVE (Negative); Urine RBC <5 /HPF (None Seen); Urine Urobilinogen Normal (Normal); Urine WBC None Seen /HPF (<5); Urine pH 5.5 (5.0-7.0)
[2024-04-29 10:55] LABS: Albumin 3.2 g/dL (3.4-5.0); Albumin/Globulin Ratio 0.8 (1.1-1.8); Anion Gap 10.4 mEq/L (5.0-15.0); Bilirubin Direct 0.3 mg/dL (0-0.2); Bilirubin Indirect, Calculated 0.4 mg/dL (0.2-0.8); Bilirubin Total 0.7 mg/dL (0.2-1.0); Globulin 3.8 g/dL (2.3-3.5); Magnesium 1.9 mg/dL (1.6-2.4); Potassium 4.4 mEq/L (3.5-5.1); Troponin High Sensitivity 29.8 pg/mL (<58.9)
[2024-04-29] MEDS ORDERED: PANTOPRAZOLE 40 MG INJ ONE (11:26)
[2024-04-29 12:31] LABS: Anisocytosis 2+; Blood Morphology Comment NOTED (NOT SEEN); Macrocytosis 1+; Microcytosis 1+; Platelet Estimate ADEQ; White Blood Cell Scan OK (OK)
--- NOTE | 2024-04-29 14:43 | EDPHYS ---
Physician Documentation [facility] Name: Agustina Laird Age: 88 yrs Sex: Female : 1935 Arrival Date: 04/29/2024 Time: 10:00 Bed 8 Private MD: Gerogi Heaton HPI: 04/29 14:35 This 88 yrs old Female presents to ER via Ambulatory with complaints of terry Abnormal Lab Results. Historical: - Allergies: 10:15 Dilaudid (Hives); iw 10:15 Lovastatin (Unknown reaction); iw - PMHx: 10:15 Anemia; Arthritis; blood transfusion; CAD; Depression; GERD; Gout; Hypertension; iw Hypothyroidism; myeloma dysplastic syndrome; - PSHx: 10:15 bladder reconstruction surgery; mechanical aortic valve replacement; Valve replacement iw (yr); - Immunization history:: Adult Immunizations up to date. - Infectious Disease History:: Denies. - Social history:: Smoking status: Patient denies any tobacco usage or history of. ROS: 14:37 Constitutional: Negative for fever, chills, and weight loss, Eyes: Negative for injury, terry pain, redness, and discharge, ENT: Negative for injury, pain, and discharge, Neck: Negative for injury, pain, and swelling, Cardiovascular: Negative for chest pain, palpitations, and edema, Respiratory: Negative for shortness of breath, cough, wheezing, and pleuritic chest pain, Abdomen/GI: Negative for abdominal pain, nausea, vomiting, diarrhea, and constipation, Back: Negative for injury and pain, : Negative for injury, bleeding, discharge, and swelling, MS/Extremity: Negative for injury and deformity, Skin: Negative for injury, rash, and discoloration, Psych: Negative for depression, anxiety, suicide ideation, homicidal ideation, and hallucinations, Allergy/Immunology: Negative for hives, rash, and allergies, Endocrine: Negative for neck swelling, polydipsia, polyuria, polyphagia, and marked weight changes, Hematologic/Lymphatic: Negative for swollen nodes, abnormal bleeding, and unusual bruising, 14:37 Neuro: Positive for weakness, Exam: 14:37 Constitutional: This is a well developed, well nourished patient who is awake, alert, terry and in no acute distress. Head/Face: Normocephalic, atraumatic. Eyes: Pupils equal round and reactive to light, extra-ocular motions intact. Lids and lashes normal. Conjunctiva and sclera are non-icteric and not injected. Cornea within normal limits. Periorbital areas with no swelling, redness, or edema. ENT: Nares patent. No nasal discharge, no septal abnormalities noted. Tympanic membranes are normal and external auditory canals are clear. Oropharynx with no redness, swelling, or masses, exudates, or evidence of obstruction, uvula midline. Mucous membranes moist. Neck: Trachea midline, no thyromegaly or masses palpated, and no cervical lymphadenopathy. Supple, full range of motion without nuchal rigidity, or vertebral point tenderness. No Meningismus. Chest/axilla: Normal chest wall appearance and motion. Nontender with no deformity. No lesions are appreciated. Cardiovascular: Regular rate and rhythm with a normal S1 and S2. No gallops, murmurs, or rubs. Normal PMI, no JVD. No pulse deficits. Respiratory: Lungs have equal breath sounds bilaterally, clear to auscultation and percussion. No rales, rhonchi or wheezes noted. No increased work of breathing, no retractions or nasal flaring. Abdomen/GI: Soft, non-tender, with normal bowel sounds. No distension or tympany. No guarding or rebound. No evidence of tenderness throughout. Back: No spinal tenderness. No costovertebral tenderness. Full range of motion. Female : Normal external genitalia. Skin: Warm, dry with normal turgor. Normal color with no rashes, no lesions, and no evidence of cellulitis. MS/ Extremity: Pulses equal, no cyanosis. Neurovascular intact. Full, normal range of motion. Neuro: Awake and alert, GCS 15, oriented to person, place, time, and situation. Cranial nerves II-XII grossly intact. Motor strength 5/5 in all extremities. Sensory grossly intact. Cerebellar exam normal. Normal gait. Psych: Awake, alert, with orientation to person, place and time. Behavior, mood, and affect are within normal limits. Vital Signs: 10:15 BP 118 / 48; Pulse 70; Resp 16; Temp 97.3; Pulse Ox 97% on R/A; Weight 66.68 kg; Height iw 5 ft. 5 in. ; 11:37 BP 128 / 49; Pulse 58; Resp 16; Pulse Ox 93% on R/A; cm10 15:22 BP 137 / 45; Pulse 70; Resp 16; Pulse Ox 99% on R/A; cm10 10:15 Body Mass Index 24.46 (66.68 kg, 165.1 cm) iw MDM: 10:10 Patient medically screened. [facility] 14:37 Differential Diagnosis altered mental status, sepsis. Data reviewed: vital signs, [facility] nurses notes, lab test result(s). Consideration of Admission/Observation Escalation of care including admission/observation considered. I considered the following discharge prescriptions or medication management in the emergency department Medications were administered in the Emergency Department. See MAR. Test considered but Not performed: X-ray: no cxr refused. Historians other than the Patient: Family Member: family well informed. Care significantly affected by the following chronic conditions: Hypertension, mds, anemia, cad, gerd. Counseling: I had a detailed discussion with the patient and/or guardian regarding the historical points, exam findings, and any diagnostic results supporting the discharge/admit diagnosis, lab results, the need for further work-up and treatment in the hospital. 04/29 10:10 Order name: Basic Metabolic Panel; Complete Time: 14:16 [facility] 04/29 10:10 Order name: CBC with Diff; Complete Time: 14:16 [facility] 04/29 10:10 Order name: LFT's; Complete Time: 14: [facility] 04/29 10:10 Order name: Magnesium; Complete Time: 14:16 [facility] 04/29 10:10 Order name: NT PRO-BNP; Complete Time: 14:16 [facility] 04/29 10:10 Order name: PT-INR; Complete Time: 14:16 [facility] 04/29 10:10 Order name: Troponin HS; Complete Time: 14:16 [facility] 04/29 10:10 Order name: Urinalysis w/ reflexes; Complete Time: 14:16 [facility] 04/29 10:11 Order name: Lipase; Complete Time: 14:16 [facility] 04/29 10:41 Order name: Type And Screen [facility] 04/29 10:52 Order name: Bb Add On bd 04/29 11:49 Order name: Antibody Identification [facility] 04/29 12:31 Order name: CBC Smear Scan; Complete Time: 14:16 [facility] 04/29 13:41 Order name: Packed RBC Leukored [facility] 04/29 10:10 Order name: Cardiac monitoring; Complete Time: 11:34 [facility] 04/29 10:10 Order name: EKG - Nurse/Tech; Complete Time: 10:37 [facility] 04/29 10:10 Order name: IV Saline Lock; Complete Time: 10:30 [facility] 04/29 10:10 Order name: Labs collected and sent; Complete Time: 10:30 [facility] 04/29 10:10 Order name: O2 Per Protocol; Complete Time: 11:34 [facility] 04/29 10:10 Order name: O2 Sat Monitoring; Complete Time: 11:34 [facility] Administered Medications: 11:34 Drug: Pantoprazole IVP 40 mg IVP once Route: IVP; Site: right antecubital; cm10 15:58 Follow up: Response: No adverse reaction cm10 Disposition Summary: 04/29/24 14:43 Hospitalization Ordered Notes: Hospitalization Status: Inpatient Admission terry Provider: Ana Fernandez cha Location: Telemetry/MedSurg (observation) terry Condition: Fair terry Problem: new terry Symptoms: have improved terry Bed/Room Type: Standard [facility] Room Assignment: 404(04/29/24 15:06) bd Diagnosis - Weakness terry - Anemia, unspecified - MDS [facility] Forms: - Medication Reconciliation Form terry - SBAR form terry - Leadership Thank You Letter terry Signatures: Dispatcher [employer] EDLauren Dunne Corey, MD MD cha Williams, Irene, RN Katie Valentine RN RN cm10 Corrections: (The following items were deleted from the chart) 10:11 10:11 BASIC METABOLIC PANEL+C.LAB.BRZ ordered. EDMS EDMS 10:11 10:11 CBC+H.LAB.BRZ ordered. EDMS EDMS 10:11 10:11 HEPATIC FUNCTION+C.LAB.BRZ ordered. EDMS EDMS 10:11 10:11 MAGNESIUM+C.LAB.BRZ ordered. EDMS EDMS 10:11 10:11 PROBNP+C.LAB.BRZ ordered. EDMS EDMS 10:11 10:11 PROTIME (+INR)+COAG.LAB.BRZ ordered. EDMS EDMS 10:11 10:11 Troponin High Sensitivity+C.LAB.BRZ ordered. EDMS EDMS 10:11 10:11 Urinalysis+U.LAB.BRZ ordered. EDMS EDMS 10:11 10:11 Chest Single View+RAD.RAD.BRZ ordered. EDMS EDMS 10:11 10:11 LIPASE+C.LAB.BRZ ordered. EDMS EDMS 15:06 14:43 terry bd
--- NOTE | 2024-04-29 14:43 | ER ---
Nurse's Notes [facility] Name: Agustina Laird Age: 88 yrs Sex: Female : 1935 Arrival Date: 04/29/2024 Time: 10:00 Bed 8 Private MD: Diagnosis: Weakness;Anemia, unspecified-MDS Presentation: 04/29 10:14 Chief complaint: Patient's son or daughter states: Hgb level was 6.2 yesterday, needs iw blood transfusion. Coronavirus screen: At this time, the client does not indicate any symptoms associated with coronavirus-19. Ebola Screen: No symptoms or risks identified at this time. Initial Sepsis Screen: Does the patient meet any 2 criteria? No. Patient's initial sepsis screen is negative. Does the patient have a suspected source of infection? No. Patient's initial sepsis screen is negative. Risk Assessment: Do you want to hurt yourself or someone else? Patient reports no desire to harm self or others. Onset of symptoms was April 29, 2024. 10:14 Method Of Arrival: Ambulatory iw 10:14 Acuity: CAITY 3 iw Historical: - Allergies: 10:15 Dilaudid (Hives); iw 10:15 Lovastatin (Unknown reaction); iw - PMHx: 10:15 Anemia; Arthritis; blood transfusion; CAD; Depression; GERD; Gout; Hypertension; iw Hypothyroidism; myeloma dysplastic syndrome; - PSHx: 10:15 bladder reconstruction surgery; mechanical aortic valve replacement; Valve replacement iw (yr); - Immunization history:: Adult Immunizations up to date. - Infectious Disease History:: Denies. - Social history:: Smoking status: Patient denies any tobacco usage or history of. Screenin:35 [facility] ED Fall Risk Assessment (Adult) History of falling in the last 3 months, cm10 including since admission No falls in past 3 months (0 pts) Confusion or Disorientation No (0 pts) Intoxicated or Sedated No (0 pts) Impaired Gait No (0 pts) Mobility Assist Device Used No (0 pt) Altered Elimination No (0 pt) Score/Fall Risk Level 0 - 2 = Low Risk Oriented to surroundings, Maintained a safe environment, Hourly rounding (assess needs \T\ fall precautionary measures) done. Abuse screen: Denies threats or abuse. Denies injuries from another. Nutritional screening: No deficits noted. Tuberculosis screening: No symptoms or risk factors identified. Assessment: 11:35 General: Appears in no apparent distress. comfortable, Behavior is calm, cooperative. cm10 Pain: Denies pain. Neuro: No deficits noted. Level of Consciousness is awake, alert, obeys commands, Oriented to person, place, time, situation, Appropriate for age. Cardiovascular: No deficits noted. Heart tones present Patient's skin is warm and dry. Respiratory: No deficits noted. Airway is patent Respiratory effort is even, unlabored, Respiratory pattern is regular, symmetrical, Breath sounds are clear bilaterally. Derm: No deficits noted. Skin is pink, warm \T\ dry. Musculoskeletal: No deficits noted. Range of motion: intact in all extremities. 12:06 General: Per blood bank, there will be a delay in getting patients blood due to patient cm10 having antibodies. Pt made aware about delay.. 12:29 General: Per bloodbank, delay could take up to 24hrs due to patient having antibodies.. cm10 15:59 Reassessment: Patient appears in no apparent distress at this time. No changes from cm10 previously documented assessment. Patient and/or family updated on plan of care and expected duration. Pain level reassessed. Vital Signs: 10:15 BP 118 / 48; Pulse 70; Resp 16; Temp 97.3; Pulse Ox 97% on R/A; Weight 66.68 kg; Height iw 5 ft. 5 in. ; 11:37 BP 128 / 49; Pulse 58; Resp 16; Pulse Ox 93% on R/A; cm10 15:22 BP 137 / 45; Pulse 70; Resp 16; Pulse Ox 99% on R/A; cm10 10:15 Body Mass Index 24.46 (66.68 kg, 165.1 cm) iw ED Course: 10:02 Patient arrived in ED. mr 10:10 Georgi Carrasco MD is Attending Physician. terry 10:15 Triage completed. iw 10:15 Arm band placed on. iw 10:30 Lipase Sent. bc6 10:30 Basic Metabolic Panel Sent. bc6 10:30 CBC with Diff Sent. bc6 10:30 LFT's Sent. bc6 10:30 Magnesium Sent. bc6 10:30 NT PRO-BNP Sent. bc6 10:30 PT-INR Sent. bc6 10:30 Troponin HS Sent. bc6 10:30 Initial lab(s) drawn, by me, sent to lab. Inserted saline lock: 20 gauge in right bc6 antecubital area, using aseptic technique. Blood collected. Flushed with 10 mL NS. 10:37 EKG done, by ED staff, reviewed by Georgi Carrasco MD. bc6 11:15 Patient placed in an exam room, on a stretcher. ll1 11:20 Katie Tejada, RN is Primary Nurse. cm10 11:34 Patient has correct armband on for positive identification. Bed in low position. Call cm10 light in reach. Side rails up X2. Provided Education on: Blood Transfusion. Client placed on continuous cardiac and pulse oximetry monitoring. NIBP monitoring applied. monitoring tech on. 14:42 Ana Fernandez MD is Hospitalizing Provider. [facility] 15:30 Report faxed at [phone]. Ross confirmed fax received at [phone]. cm10 15:30 1530 Provider at bedside discussing plan of care. 1543 CM met with Ms. Laird and her ane daughter Renetta at the bedside in the ED exam room. Patient identified by name and . Demographic sheet confirmed and changes sent to appropriate personnel. Patient states she lives alone in a single story home and her daughter Renetta lives next door to her. She states that prior to admission,she performs ADLs independently, using a walker only when she will be walking long distances. She reports there is one step to get up to enter her kitchen. Other DME includes a shower chair in a walk-in shower, with medical pathologist bars. No MPOA in place at this time. No HH, home oxygen or other medical services at this time. Patient's preferred plan is to return home upon discharge and Renetta states she will transport Ms Apodaca home. CM team will continue to follow and coordinate care. 15:59 No provider procedures requiring assistance completed. Patient admitted, IV remains in cm10 place. Administered Medications: 11:34 Drug: Pantoprazole IVP 40 mg IVP once Route: IVP; Site: right antecubital; cm10 15:58 Follow up: Response: No adverse reaction cm10 Medication: 11:36 VIS not applicable for this client. cm10 Outcome: 14:43 Decision to Hospitalize by Provider. [facility] 15:[address] [facility] accompanied by nurse, via wheelchair, room 405, cm10 15:59 Condition: good 15:59 Instructed on the need for admit, 16:00 Patient left the ED. cm10 Signatures: Georgi Carrasco MD MD cha Rivera, Ese, Reg Reg Clari Rob, RN JUSTICE iw Katia Colby RN RN ll1 Sydni Sharma Clarissa, RN RN cm10 Eneida Jacinto RN RN ane Corrections: (The following items were deleted from the chart) 10:16 10:15 BP 118 / 48; Pulse 70bpm; Resp 16bpm; Pulse Ox 97% RA; Temp 97.3F; iw rani
--- NOTE | 2024-04-29 14:53 | P.HP ---
Certification for Inpatient Patient admitted to: Inpatient With expected LOS: >2 Midnights Patient will require the following post-hospital care: None Practitioner: I am a practitioner with admitting privileges, knowledge of patient current condition, hospital course, and medical plan of care. Services: Services provided to patient in accordance with Admission requirements found in Title 42 Section 412.3 of the Code of Federal Regulations <Brenda Chandra Herminio - Last Filed: 04/29/24 17:47> Patient History Date of Service: 04/29/24 Reason for admission: Myelodysplastic syndrome with anemia History of Present Illness: Ms. Laird is an 88-year-old female with a past medical history of hypertension, CAD, hypothyroidism, myelodysplastic syndrome and chronic pain. She was called by her PCP with abnormal lab values and asked to come to the emergency department. Currently her hemoglobin is 6.9 and packed red blood cells have been ordered. There will be an 8-hour delay on receiving the blood for transfusion as patient has multiple antibodies. She will be admitted to await transfusion and her regular home meds will be continued. Home medications list reviewed: Yes - Past Medical/Surgical History Has patient received pneumonia vaccine in the past: Yes Diabetic: No -: HTN -: Hypothyroidsim -: CAD -: Arthritis -: Bleeding Ulcer -: Hysterectomy -: Rt Ear surgery -: Heart Stents x3 -: Appy -: Bladder suspension Psychosocial/ Personal History: . Lives down the street from her child - Family History Father -: Heart disease Notes: Arthritis Mother -: Stroke Brother -: GI disease, Cancer Notes: Pancreatic cancer Sister -: Cancer, Blood disorders Notes: breast ca - Social History Smoking Status: Former smoker Alcohol use: No CD- Drugs: No Caffeine use: Yes Place of Residence: Home <ChandraBrendakim Durham - Last Filed: 04/29/24 17:47> Date of Service: 04/29/24 <Ana Fernandez - Last Filed: 04/29/24 18:04> Allergies hydromorphone HCl [From Dilaudid] Allergy (Mild, Verified 08/25/21 10:20) Itching/Hives/Rash lovastatin Adverse Reaction (Verified 08/25/21 10:20) Itching NSAIDS Adverse Reaction (Uncoded 08/25/21 10:20) bleeds easily Home Medications: Zolpidem Tartrate 10 mg PO BEDTIME 07/06/12 Aspirin [Aspirin EC 81 MG] 1 tab PO DAILY 03/26/16 Furosemide [Lasix*] 40 mg PO DAILY 03/26/16 Pantoprazole [Protonix Tab*] 40 mg PO AC 03/26/16 Allopurinol 1 tab PO DAILY 04/29/24 Levothyroxine [Synthroid*] 1 tab PO DAILY 04/29/24 Quetiapine Fumarate [Seroquel] 1 tab PO BEDTIME 04/29/24 Review of Systems 10-point ROS is otherwise unremarkable General: Weakness, Malaise, As per HPI Other: Chronic pain <Brenda Chandra Herminio - Last Filed: 04/29/24 17:47> Physical Examination - Physical Exam General: Alert, In no apparent distress, Oriented x3 HEENT: Atraumatic, Normocephalic Neck: Supple Respiratory: Normal air movement Cardiovascular: No edema, Regular rate/rhythm Capillary refill: <2 Seconds Gastrointestinal: Normal bowel sounds Musculoskeletal: No clubbing Integumentary: No rashes Neurological: Normal speech, Normal tone, Normal affect, Other (Hard of hearing) Lymphatics: No axilla or inguinal lymphadenopathy External genitalia: Deferred Rectal: Deferred - Studies Laboratory Data (last 24 hrs) 04/29/24 04/29/24 04/29/24 10:30 10:30 10:30 WBC 5.50 Hgb 6.9 L Hct 21.2 L Plt Count 155 PT 12.3 INR 1.10 Sodium 137 Potassium 4.4 BUN 40 H Creatinine 1.41 H Glucose 103 Magnesium 1.9 Total Bilirubin 0.7 AST 24 ALT 18 Alkaline Phosphatase 88 Lipase 20 <Brenda Chandra Herminio - Last Filed: 04/29/24 17:47> - Studies Laboratory Data (last 24 hrs) 04/29/24 04/29/24 04/29/24 10:30 10:30 10:30 WBC 5.50 Hgb 6.9 L Hct 21.2 L Plt Count 155 PT 12.3 INR 1.10 Sodium 137 Potassium 4.4 BUN 40 H Creatinine 1.41 H Glucose 103 Magnesium 1.9 Total Bilirubin 0.7 AST 24 ALT 18 Alkaline Phosphatase 88 Lipase 20 <Ana Fernandez - Last Filed: 04/29/24 18:04> Assessment and Plan - Plan Myelodysplastic syndrome Significant anemia, platelets normal, INR normal Will transfuse 2-3 units, however patient has multiple antibodies in the blood will be delayed by at least 8 hours for typing Chronic pain Sees pain management Continue current regimen CAD, hypothyroidism, arthritis, ulcer Continue home meds VTE/GI prophylaxis Teds/Protonix - Advance Directives Does patient have a Living Will: No Does patient have a Durable POA for Healthcare: No <PrateekBrendakim Durham - Last Filed: 04/29/24 17:47> - Plan Pt seen and examined. I agree with the note by the SPICE GRINDER. Pt is an 88yo female with past medical history of hypertension, CAD, hypothyroidism, myelodysplastic syndrome and chronic pain who was sent to the ER for low hemoglobin. On admission, lab studies show WBC 5.5, Hgb 6.9, K 4.4, Cr 1.41, BNP 5114, Troponin 29.8. At bedside, pt is in NAD. A/P: MDS / Anemia: Hgb is 6.9. Will give 2 units of blood. She has history of multiple antibodies in her blood. will monitor blood cell counts. She has received blood 4 blood transfusions since this year. Htn: Continue home med Hypothyroidism: Synthroid Chronic pain: Continue prn painmed. DVT ppx: SCD Code: full <Ana Fernandez - Last Filed: 04/29/24 18:04>
[2024-04-29] MEDS ORDERED: SODIUM CHLORIDE 0.9% 10ML INJ IV PRN (14:57)
[2024-04-29] MEDS ORDERED: FUROSEMIDE 20 MG/ 2ML VIAL IV ONE (16:00)
[2024-04-29 17:02] VITALS: BMI 24.4
[2024-04-29] MEDS: HYDROCODONE/APAP 5/325 MG TAB PO PRN (18:25)
[2024-04-29] MEDS: QUETIAPINE 25 MG TAB PO SCH (20:38)
[2024-04-29] MEDS: PANTOPRAZOLE 40 MG INJ IVP SCH (20:38)
[2024-04-29] MEDS: ZOLPIDEM TARTRATE 10 MG TABLET PO PRN (20:44)
[2024-04-30] MEDS: ACETAMINOPHEN 325 MG TABLET PO ONE (04:59)
[2024-04-30] MEDS: NA CHLORIDE 0.9% 250 ML IV SCH ×2 (05:00→08:53)
[2024-04-30] MEDS: DIPHENHYDRAMINE 50 MG/ML VIAL IV ONE (05:00)
[2024-04-30] MEDS: LEVOTHYROXINE SOD 0.125 MG TAB PO SCH (05:00)
--- NOTE | 2024-04-30 05:51 | P.DS ---
Admission Date: 04/29/24 Discharge Date: 04/30/24 Reason for Admission: Myelodysplastic syndrome with anemia Brief History of Present Illness: Ms. Laird is an 88-year-old female with a past medical history of hypertension, CAD, hypothyroidism, myelodysplastic syndrome and chronic pain. She was called by her PCP with abnormal lab values and asked to come to the emergency department. Currently her hemoglobin is 6.9 and packed red blood cells have been ordered. There will be an 8-hour delay on receiving the blood for transfusion as patient has multiple antibodies. She will be admitted to await transfusion and her regular home meds will be continued. Hospital Course: Ms. Laird had to units PRBCs infused. She is anxious to be discharged. Will repeat H&H 1 hour post second infusion. Patient will follow-up with her PCP. <Brenda Chandra - Last Filed: 04/30/24 18:33> Admission Date: 04/29/24 Discharge Date: 04/30/24 Hospital Course: Pt seen and examined. I agree with the note by the TEAM PRIMARY CARE PHYSICIAN. Pt received 2 units of blood. Ok to discharge pt after we check her H/H. Follow up with PCP in clinic. <Ana Fernandez - Last Filed: 04/30/24 21:51> Disposition: ROUTINE DISCHARGE Discharge Condition: GOOD Vital Signs/Physical Exam: Temp Pulse Resp BP Pulse Ox 98.7 F 65 16 128/54 L 98 04/30/24 04:59 04/30/24 04:00 04/30/24 04:00 04/30/24 04:00 04/30/24 04:00 General: Alert, In no apparent distress, Oriented x3 HEENT: Atraumatic, Normocephalic Neck: Supple Respiratory: Normal air movement Cardiovascular: Normal pulses, Regular rate/rhythm Capillary refill: <2 Seconds Gastrointestinal: Soft and benign Musculoskeletal: No clubbing Integumentary: No rashes Neurological: Normal speech, Normal tone, Normal affect Lymphatics: No axilla or inguinal lymphadenopathy External genitalia: Deferred Rectal: Deferred Laboratory Data at Discharge: WBC 5.50 thou/uL (4.3-10.9) 04/29/24 10:30 Hgb 6.9 g/dL (12.0-15.0) L 04/29/24 10:30 Hct 21.2 % (36.0-45.0) L 04/29/24 10:30 Plt Count 155 thou/uL (152-406) 04/29/24 10:30 PT 12.3 SECONDS (9.4-12.5) 04/29/24 10:30 INR 1.10 04/29/24 10:30 Sodium 137 mEq/L (136-145) 04/29/24 10:30 Potassium 4.4 mEq/L (3.5-5.1) 04/29/24 10:30 BUN 40 mg/dL (7-18) H 04/29/24 10:30 Creatinine 1.41 mg/dL (0.55-1.02) H 04/29/24 10:30 Glucose 103 mg/dL (74-106) 04/29/24 10:30 Magnesium 1.9 mg/dL (1.6-2.4) 04/29/24 10:30 Total Bilirubin 0.7 mg/dL (0.2-1.0) 04/29/24 10:30 AST 24 U/L (15-37) 04/29/24 10:30 ALT 18 U/L (13-56) 04/29/24 10:30 Alkaline Phosphatase 88 U/L (45-117) 04/29/24 10:30 Lipase 20 U/L (13-75) 04/29/24 10:30 <Chandra,Brenda Herminio - Last Filed: 04/30/24 18:33> Vital Signs/Physical Exam: Temp Pulse Resp BP Pulse Ox 97.3 F 51 16 122/56 L 96 04/30/24 12:00 04/30/24 12:00 04/30/24 12:00 04/30/24 12:00 04/30/24 12:00 Laboratory Data at Discharge: WBC Cancelled 04/30/24 Unknown Hgb Cancelled 04/30/24 Unknown Hct Cancelled 04/30/24 Unknown Plt Count Cancelled 04/30/24 Unknown PT 12.3 SECONDS (9.4-12.5) 04/29/24 10:30 INR 1.10 04/29/24 10:30 Sodium 137 mEq/L (136-145) 04/29/24 10:30 Potassium 4.4 mEq/L (3.5-5.1) 04/29/24 10:30 BUN 40 mg/dL (7-18) H 04/29/24 10:30 Creatinine 1.41 mg/dL (0.55-1.02) H 04/29/24 10:30 Glucose 103 mg/dL (74-106) 04/29/24 10:30 Magnesium 1.9 mg/dL (1.6-2.4) 04/29/24 10:30 Total Bilirubin 0.7 mg/dL (0.2-1.0) 04/29/24 10:30 AST 24 U/L (15-37) 04/29/24 10:30 ALT 18 U/L (13-56) 04/29/24 10:30 Alkaline Phosphatase 88 U/L (45-117) 04/29/24 10:30 Lipase 20 U/L (13-75) 04/29/24 10:30 <Ana Fernandez - Last Filed: 04/30/24 21:51> Diet: Regular Activity: Fall precautions <Chandra,Brenda Herminio - Last Filed: 04/30/24 18:33> <Ana Fernandez - Last Filed: 04/30/24 21:51> Home Medications: Zolpidem Tartrate 10 mg PO BEDTIME 07/06/12 Aspirin [Aspirin EC 81 MG] 1 tab PO DAILY 03/26/16 Furosemide [Lasix*] 40 mg PO DAILY 03/26/16 Pantoprazole [Protonix Tab*] 40 mg PO AC 03/26/16 Allopurinol 1 tab PO DAILY 04/29/24 Levothyroxine [Synthroid*] 1 tab PO DAILY 04/29/24 Quetiapine Fumarate [Seroquel] 1 tab PO BEDTIME 04/29/24 Physician Discharge Instructions: Ms. Laird had to units PRBCs infused. She is anxious to be discharged. Will repeat H&H 1 hour post second infusion. Pt declined waiting for redraw. She states she gets transfusions all the time and would like to leave. Patient will follow-up with her PCP. Followup: Sugey Deleon [Primary Care Provider] -
[2024-04-30] MEDS: FUROSEMIDE 20 MG/ 2ML VIAL IV SCH (08:41)
[2024-04-30] MEDS: allopurinoL 100 MG TAB PO SCH (08:42)
[2024-04-30] MEDS: ASPIRIN EC 81 MG TAB PO SCH (08:42)
[2024-04-30] MEDS: FUROSEMIDE 40 MG TABLET PO SCH (09:00)
[2024-04-30 12:55] VITALS: BP 122/56; TEMP 97.3
[2024-04-30 13:59] VITALS: O2SAT 96
--- NOTE | 2024-05-04 13:08 | EKG ---
Test Date: 2024-04-29 Test Time: 10:35:40 Tenter Feeder: KEENAN MEASUREMENT RESULTS: Intervals: Rate: 66 TN: 170 QRSD: 144 QT: 438 QTc: 459 [place]: P: 54 TN: 170 QRS: 48 T: 224 INTERPRETIVE STATEMENTS: Normal sinus rhythm Left ventricular hypertrophy with QRS widening and repolarization abnormality Abnormal ECG Compared to ECG 03/26/2024 10:56:06 No significant changes Electronically Signed On 05-04-24 12:52:41 CDT by Marquez Bey
== END 2024-04-30 14:01 | disposition home or self-care (01) | DRG 812 ==
LOC: ER 10:00 → ERHOLD 14:57 → 4TH 15:20
PROVIDERS: ADMIT Hospitalist; ATTEND Hospitalist
PROC: 30233N1 Transfusion of Nonautologous Red Blood Cells into Peripheral Vein, Percutaneous Approach (ICD-10-PCS; principal; 2024-04-30)
DX: D46.9 Myelodysplastic syndrome, unspecified (principal); M10.9 Gout, unspecified; I10 Essential (primary) hypertension; E03.9 Hypothyroidism, unspecified; M19.90 Unspecified osteoarthritis, unspecified site; K21.9 Gastro-esophageal reflux disease without esophagitis; I25.10 Atherosclerotic heart disease of native coronary artery without angina pectoris; Z88.5 Allergy status to narcotic agent; Z95.2 Presence of prosthetic heart valve; Z95.5 Presence of coronary angioplasty implant and graft; Z88.8 Allergy status to other drugs, medicaments and biological substances; Z79.82 Long term (current) use of aspirin; Z79.01 Long term (current) use of anticoagulants; Z79.890 Hormone replacement therapy; Z90.710 Acquired absence of both cervix and uterus; Z79.899 Other long term (current) drug therapy; Z87.891 Personal history of nicotine dependence
CPT/HCPCS: 36415; 36430; 80048; 80076; 81001; 83690; 83735; 83880; 84484; 85025; 85610; 86850; 86860; 86870; 86880; 86900; 86901; 86902; 86905; 86920; 86922; 86972; 93005; 94010; 96374; 99285; J1200; J1940; J2470; J7050; P9016